=== PATIENT | male | born 1940 | race Caucasian/White ===

== ENCOUNTER 2016-07-22 06:30 | Outpatient (CLI) | payer MEDICARE ==
[~2016-07-22] VITALS: Ht 180.3 cm; Wt 81.8 kg
--- NOTE | ~2016-07-22 | HEMODYNAMI ---
PATIENT:KAREN AYALA MEDICAL RECORD: [id number] : 38 LOCATION:D.CAT ADMISSION DATE: 07/22/16 Generatedon:07/22/20169:58 Patient name: KAREN AYALA Patient #: [id number] SSN: [id number] : 1940 Date of study: 07/22/2016 Page: Of Hemodynamic Procedure Report Patient Data Patient Demographics Procedure consent was obtained First Name: KAREN Gender: Male Last Name: LUCY : 1940 Middle Initial: E Age: 76 year(s) Patient #: [id number] Race: SSN: [id number] Additional ID: [id number] Contact details Address: [place] [address] State: [place] City: [place] Zip code: [address] Past Medical History Allergies: No known allergies Admission Admission Data Admission Date: 07/22/2016 Admission Time: 6:30 Arrival Date: 07/22/2016 Arrival Time: 6:30 Admit Source: Other Insurance Payor: Medicare Height (in.): 71 BSA: 2.04 (m2) Height (cm.): 180.34 BMI: 25.8 (kg/m2) Weight (lbs.): 185 Weight (kg.): 83.91 Lab Results Lab Result Date: 07/22/2016 Lab Result Time: 0:00 Biochemistry Name Units Result Min Max BUN mg/dl 21 --(----)-* 7 18 Creatinine mg/dl 1.4 --(----)*- 0.6 1.3 CBC Name Units Result Min Max Hemoglobin g/dl 13.6 --(*---)-- 13.5 17.5 Procedure Procedure Types Cath Procedure Diagnostic Procedure [facility] w/Coronaries FFR/IVUS Intra-Coronary IVUS Initial PCI Procedure Coronary Stent Initial Procedure Description Procedure Date Procedure Date: 07/22/2016 Procedure Start Time: 9:37 Procedure End Time: 9:51 Procedure Staff Name Function Rodrigo Carreon MD Performing Physician Brigid Bonds RT Scrub Lisseth Way RN Nurse Kyrie Gamboa RT Health Insurance Assessor Pretty Calles RT Monitor Indication Angina Procedure Data Cath Procedure Fluoroscopy Diagnostic fluoroscopy Total fluoroscopy Time: 3.4 time: 3.4 min min Diagnostic fluoroscopy Total fluoroscopy dose: 602 dose: 602 mGy mGy Contrast Material Contrast Material Type Amount (ml) Isovue 370 71 Entry Location Entry Primary Successful Side Size Upsize Upsize Entry Closure Succes sful Closure Location (Fr) 1 (Fr) 2 (Fr) Remarks Device Remarks Femoral Right 5 Fr 6 Fr Vascade artery Short Closure System Estimated blood loss: 5 ml Diagnostic catheters Device Type Used For End Catheter Placement Cordis Infinity 5Fr JL Left Coronary 3.5 catheter Angiography Procedure Complications No complications Procedure Medications Medication Administration Route Dosage Oxygen NC 2 l/min Heparin Flush Bag added to field 2 bags (1000units/500ml NS) Lidocaine 2% added to field 20 Benadryl I.V. 50 mg Versed I.V. 1 mg Fentanyl I.V. 50 mcg unlisted medication Versed I.V. 1 mg Fentanyl I.V. 50 mcg Heparin Bolus I.V. 4000 units Hemodynamics Rest BSA: 2.04 (m2) HGB: 13.6 (g/dl) O2 Consumption: Estimated: 233.42 (ml/min) O2 Co nsumption indexed: Estimated:114.42 (ml/min/m) Heart Rate: 69 (bpm) Pressure Samples Time Site Value (mmHg) Purpose Heart Use Rate(bpm) 9:38 LV 30/-18,-11 Snapshot 60 Snapshots Pre Cath Intra NCS Post Cath Vital Signs Time Heart Resp SPO2 NIBP (mmHg) Rhythm Pain Sedation Rate (ipm) (%) Status Level (bpm) 9:24:36 69 15 97 153/72(119) NSR 0 (11) 10(A) , No pain 9:28:56 68 14 94 145/69(122) NSR 0 (11) 10(A) , No pain 9:33:14 64 15 95 135/74(111) NSR 0 (11) 10(A) , No pain 9:37:31 58 14 95 135/71(114) NSR 0 (11) 9(A) , No pain 9:41:47 62 16 95 136/68(115) NSR 0 (11) 9(A) , No pain 9:46:05 60 16 95 128/68(107) NSR 0 (11) 9(A) , No pain 9:50:19 60 15 97 143/65(112) NSR 0 (11) 9(A) , No pain Medications Time Medication Route Dose Verified Delivered Reason Notes Effectiveness by by 9:32:42 Oxygen NC 2 Rodrigo Lisseth Per physician l/min Velma Way RN 9:32:50 Heparin Flush added 2 Rodrigo Rodrigo used for Bag to bags Velma Carreon MD procedure (1000units/500ml field NS) 9:32:56 Lidocaine 2% added 20ml Rodrigo Rodrigo used for to vial Velma Carreon MD procedure field 9:33:02 Benadryl I.V. 50 mg Rodrigo Lisseth Per physician Velma Way RN 9:33:07 Versed I.V. 1 mg Rodrigo Lisseth for sedation Velma Way RN 9:33:12 Fentanyl I.V. 50 Rodrigo Lisseth for sedation mcg Velma Way RN 9:35:12 Hernandez catheter Rodrigo Lisseth urinary per instered Velma Way RN retention physician order 9:37:10 Versed I.V. 1 mg Rodrigo Lisseth for sedation Velma Way RN 9:37:12 Fentanyl I.V. 50 Rodrigo Lisseth for sedation mcg Velma Way RN 9:44:24 Heparin Bolus I.V. 4000 Rodrigo Lisseth for dose units Velma Way RN anticoagulation verified wt dr carreon Procedure Log Time Note 9:00:33 Kyrie Gamboa RT(R) sent for patient. Start room use. 9:02:29 Informed consent obtained and on chart 9:02:34 Diagnostic Cath Status : Elective 9:02:58 Indication : Angina 9:03:06 Admit Source: Other 9:03:09 Arrival Date: 07/22/2016 6:30:00 AM 9:06:38 Insurance Payor : Medicare 9:06:55 Patient Height : 180.34 inches 9:06:56 Patient Weight : 83.91 lbs 9:11:18 Lab Result : BUN 21 mg/dl 9:11:18 Lab Result : Creatinine 1.4 mg/dl 9:11:18 Lab Result : Hemoglobin 13.6 g/dl 9:15:39 Time tracking: Regular hours 9:15:46 Plan of Care:Hemodynamics will remain stable., Cardiac rhythm will remain stable., Comfort level will be maintained., Respiratory function will remain adequate., Patient/ family verbilizes understanding of procedure., Procedure tolerated without complication., Recovers from procedure without complications.. 9:15:55 Patient received from Outpatients to [facility] 1 Alert and oriented. Tansferred to table in Supine position. 9:15:56 Warm blankets applied, and michelle hugger turned on for patient comfort. 9:15:56 Correct patient and procedure confirmed by team. 9:15:57 ECG and BP/O2 sat monitors applied to patient. 9:20:28 Vital chart was started 9:20:39 Baseline sample Acquired. 9:20:45 Rhythm: sinus rhythm 9:20:47 Full Disclosure recording started 9:21:12 H&P Date Dictated: 07/21/2016 Within 30 days and on chart., H&P Addendum completed by physician on day of procedure. (MUST COMPLETE FOR ALL OUTPATIENTS). 9:21:14 Pre-procedure instructions explained to patient. 9:21:18 Pre-op teaching completed and patient verbalized understanding. 9:21:20 Family in waiting room. 9:21:23 Patient NPO since Midnight. 9:21:35 Patient allergic to No known allergies 9:21:38 Is the patient allergic to Iodine/contrast media? No. 9:21:40 Is patient on blood thinner?Yes 9:21:44 ACC The patient was administered the following blood thiners within the last 24 hours: ACCPlavix 9:21:55 Patient diabetic? No. 9:22:00 Snore? Yes 9:22:01 Sleep apnea? No 9:22:06 Deviated septum? No 9:22:07 Opens mouth fully? Yes 9:22:09 Sticks out tongue? Yes 9:22:17 Dentures? No ? 9:22:29 IV patent on arrival in left forearm with 0.9% NaCl at [facility]. 9:22:31 Lab results completed and on chart. 9:22:35 Right groin area was prepped with chlora-prep and draped in sterile fashion 9:22:44 Alarms reviewed by R. N. 9:22:45 Sharps counted by scrub and verified by R.N. 9:22:50 Use device set Femoral Dx 9::52 Acist Syringe opened to sterile field. 9::52 Bag Decanter opened to sterile field. 9::53 Cardinal Cath Pack opened to sterile field. 9::53 Terumo 5Fr [place] Sheath opened to sterile field. 9:22:55 St Zane 260cm J .035 wire opened to sterile field. 9:22:57 Acist Hand Control opened to sterile field. 9:22:57 Acist Manifold opened to sterile field. 9:22:58 Cordis Infinity 5Fr Multipack catheter opened to sterile field. 9:23:00 Tegaderm 4 x 4 opened to sterile field. 9:31:11 Physician arrived 9:31:11 --------ALL STOP TIME OUT------ 9:31:11 Final Timeout: patient, procedure, and site verified with staff and physician. All members of the team are in agreement. 9:31:13 Right groin site verified by team. 9:31:16 Physical assessment completed. ASA score P 2 - A patient with mild systemic disease as per Rodrigo Carreon MD. 9:31:19 Sedation plan: IV Moderate Sedation Versed, Fentanyl 9:32:42 Oxygen 2 l/min NC was given by Lisseth Way RN; Per physician; 9:32:50 Heparin Flush Bag (1000units/500ml NS) 2 bags added to field was given by Rodrigo Carreon MD; used for procedure; 9:32:56 Lidocaine 2% 20ml vial added to field was given by Rodrigo Carreon MD; used for procedure; 9:33:02 Benadryl 50 mg I.V. was given by Lisseth Way RN; Per physician; 9:33:07 Versed 1 mg I.V. was given by Lisseth Way RN; for sedation; 9:33:12 Fentanyl 50 mcg I.V. was given by Lisseth Way RN; for sedation; 9:35:12 Hernandez catheter instered was given by Lisseth Way RN; urinary retention; per physician order 9:36:11 Procedure started. 9:37:10 Versed 1 mg I.V. was given by Lisseth Way RN; for sedation; 9:37:12 Fentanyl 50 mcg I.V. was given by Lisseth Way RN; for sedation; 9:37:45 Local anesthetic to right femoral artery with Lidocaine 2% by Rodrigo Carreon MD.INITIAL ACCESS ONLY 9:38:07 A 5 Fr sheath was inserted into the Right Femoral artery 9:39:11 5 Fr pigtail guide catheter was inserted over the wire 9:39:28 LV hemodynamics recorded. 9:39:30 LV gram done using ZAMBRANO 9:39:32 Injector settings: Ml/sec: 5, Volume: 15, 9:39:39 EF : 60 % 9:39:44 Catheter removed. 9:39:51 5 Fr jl 4 guide catheter was inserted over the wire 9:39:58 LCA angiography performed. 9:40:01 Injector settings: Ml/sec: 3, Volume: 6, 9:40:35 Catheter removed. 9:40:46 5 Fr 3drc guide catheter was inserted over the wire 9:41:26 RCA angiography performed. 9:41:30 Injector settings: Ml/sec: 3, Volume: 6, 9:41:50 Catheter removed. 9:42:04 A Cordis Infinity 5Fr JL 3.5 catheter was advanced over the wire and used for Left Coronary Angiography. 9:42:08 LCA angiography performed. 9:42:11 Injector settings: Ml/sec: 3, Volume: 6, 9:42:20 Terumo 6Fr Qu[place] Sheath opened to sterile field. 9:42:21 Merit BasixCompak Inflation Kit opened to sterile field. 9:42:22 Mosqueda Whisper J 300cm 0.014 guide wire opened to sterile field. 9:42:32 Cordis 6FR XBLAD 3.5 guide catheter opened to sterile field. 9:42:33 Pearlington [place] Eagleye IVUS Catheter opened to sterile field. 9:42:36 Proceeding to intervention. 9:42:44 Sheath upsized to a 6 Fr Short. 9:42:51 6 Fr xblad 3.5 guide catheter was inserted over the wire 9:42:57 whisper wire advanced. 9:43:51 Wire advanced across lesion. 9:44:21 IVUS catheter advanced over wire. 9:44:24 Heparin Bolus 4000 units I.V. was given by Lisseth Way RN; for anticoagulation; dose verified wt dr carreon 9:45:06 IVUS pass to Circ lesion performed. 9:47:05 IVUS catheter removed over wire. 9:47:57 Inflation Number: 1 A Medtronic Resolute 3.5 X 15 stent was prepped and advanced across the Prox CX. The stent was deployed at 15 GRACE for 0:10 (min:sec). 9:48:22 Stent catheter was removed intact over wire. 9:48:22 Wire removed. 9:48:23 Guide catheter removed. 9:48:31 Vascade 6/7 Fr Closure Device opened to sterile field. 9:48:46 Sheath removed intact; hemostasis achieved with Vascade Closure System to the Right Femoral artery. 9:48:48 Procedure ended.(Physican Out) 9:49:32 Fluoroscopy time 03.40 minutes. 9:49:36 Fluoroscopy dose: 602 mGy 9:49:36 Flurop Dose total: 602 9:49:40 Contrast amount:Isovue 370 71ml. 9:50:21 Sharps counted by scrub and verified by R.N. 9:50:23 Insertion/operative site no bleeding no hematoma. 9:50:25 Post-op/insertion site Right Femoral artery dressed using a 4 x 4 and Tegaderm. 9:50:28 Post right femoral artery:stable 9:50:29 Post Procedure Pulses reassessed and unchanged 9:50:32 Post procedure rhythm: unchanged. 9:50:35 Estimated blood loss: 5 ml 9:50:36 Post procedure instruction explained to patient.Patient verbalizes understanding. 9:50:37 Patient needs reinforcement of post procedure teaching. 9:50:57 Procedure type changed to Cath procedure, Diagnostic procedure, LHC, LHC w/Coronaries, FFR/IVUS, Intra-Coronary IVUS Initial, PCI procedure, Coronary Stent Initial 9:50:58 Procedure and supply charges have been captured, reviewed, submitted and are correct. 9:51:02 Procedure Complication : No complications 9:51:04 Vital chart was stopped 9:51:05 See physician's report for complete and final results. 9:51:09 Report given to Post Procedure Room. 9:51:11 Patient transfered to Post Procedure Room with Stretcher. 9:51:14 Procedure ended. 9:51:14 Full Disclosure recording stopped 9:51:23 ACC-PCI Only Patient was given prescriptions, or instructed by Rodrigo Carreon MD to start/continue the following medications upon discharge: Plavix 9:51:24 End room use (Document Last) 9:57:35 16FR Hernandez w/Drainage Bag opened to sterile field. Intervention Summary Intervention Notes Time ActionType Lesion and Equipment Action# Pressure Duration Attributes Used 9:47:57 Place stent Prox CX Medtronic 1 15 00:10 Resolute 3.5 X 15 stent Device Usage Item Name Manufacture Quantity Catalog Hospital Part Current Minima l Lot# / Number Charge Number Stock Stock Serial# Code Acist Acist 1 17015 332687 997512 569979 20 Syringe Medical Systems Inc Bag Microtek 1 2002S 210723 86070 091018 5 Decanter Medical Inc. Cardinal Cardinal 1 [id number] 090099 74042 680130 5 Cath Pack Health Terumo 5Fr Terumo 1 [id number] 647876 723681 698907 [address] St Zane 1 923158 539756 193054 846707 30 260cm J .035 wire Acist Hand Acist 1 13309 974601 569490 666866 5 Control Medical Systems Inc Acist Acist 1 62464 099173 575214 442351 5 Manifold Medical Systems Inc Cordis Cardinal 1 [id number] 815967 27240 665825 30 Infinity Health 5Fr Multipack catheter Tegaderm 4 3M 1 1626W 120536 690265 707240 5 x 4 Cordis Cardinal 1 [id number] 081936 370975 583530 5 Infinity Health 5Fr JL 3.5 catheter Terumo 6Fr Terumo 1 PSA922 790216 812157 487749 40 Quenemo Sheath Merit Merit 1 [id number] 550918 613182 438044 15 BasixCommdk Medical Inflation Kit Mosqueda Mosqueda 1 [id number] 874944 691401 490527 5 Whisper J Vascular 300cm 0.014 guide wire Cordis 6FR Cardinal 1 [id number] 087123 870578 662955 10 XBLAD 3.5 Health guide catheter Pearlington Pearlington 1 [id number] 068054 763044 211584 8 [place] Eagleye IVUS Catheter Medtronic Medtronic 1 [id number] 900072 453153 5 [id number] Resolute 3.5 X 15 stent Vascade 11/26 Cardiva 1 [id number] 301766 305722 285146 5 Fr Closure Medical, Device Inc. 16FR Hernandez Bard 1 [id number] 347042 666292 007612 5 w/Drainage Bag Signature Audit Randall Stage Time Signature Unsigned Intra-Procedure 07/22/2016 Pretty Calles 9:58:15 AM RT(R) Signatures Monitor : Pretty Calles RT Signature : Date : Time : [address] [place] [address]
[~2016-07-22 06:30] MED LIST: ASCORBIC ACID500 MG PO; BAYER ASPIRIN325 MG PO; BAYER CHEWABLE81 MG PO; CINNAMON500 MG PO; FISH OIL 500 MG1 CAP PO; FLAXSEED OIL1000 MG PO; GALZIN50 MG PO; LOTREL 5/10 MG1 CAP PO; MAGNESIUM OXID250 MG PO; MULTIPLE VITAMI1 TA1 PO; PLAVIX75 MG PO; PRAVACHOL40 MG PO; PRILOSEC20 MG PO; PROSCAR5 MG PO; RANEXA500 MG PO; SAW PALMETTO450 MG PO; TENORETIC 50 TA1 TAB PO; VIAGRA100 MG PO; VITAMIN B-122500 MCG PO; VITAMIN E400 UNI2 PO
[2016-07-22 07:33] LABS: BASOPHILS 0.6 % (0.0-2.0); EOSINOPHILS 4.5 % (0-7); HEMATOCRIT 40.2 % (42.0-54.0); HEMOGLOBIN 13.6 g/dL (13.5-17.5); IMMATURE GRANULOCYTES 0.2 % (0-5); LYMPHOCYTES 21.8 % (15-50); MCH 30.4 pg (26.0-34.0); MCHC 33.8 g/dL (31.0-37.0); MCV 89.7 fL (80.0-100.0); MEAN PLATELET VOLUME 9.2 fL (7.4-10.4); NEUTROPHILS 61.9 % (40-80); PLATELET COUNT 236 10x3/uL (130-400); RBC 4.48 10x6/uL (4.20-6.10); WBC 6.2 10x3/uL (4.8-10.8)
[2016-07-22 07:44] LABS: ANION GAP 11.1 mmol/L (8-16); CARBON DIOXIDE 27.5 mmol/L (21.0-32.0); CREATININE - SERUM 1.4 mg/dL (0.6-1.3); POTASSIUM - SERUM 3.6 mmol/L (3.5-5.1)
[2016-07-22] MEDS ORDERED: NIFEDIPINE ER60 MG PO (08:00)
[2016-07-22 08:09] VITALS: BP 146/69; Ht 180.3 cm; Wt 81.8 kg
--- NOTE | 2016-07-22 10:16 | NUR ---
RESTING IN BED SPEAKING WITH FAMILY AT BEDSIDE. INSTRUCTED PT TO KEEP RIGHT LEG STRAIGHT AND HEAD FLAT ON PILLOW. RIGHT GROIN SITE CDI, NO HEMATOMA NOTED. NO C/O CHEST PAIN OR NAUSEA. VSS, WILL CONTINUE TO MONITOR.
--- NOTE | 2016-07-22 10:46 | NUR ---
RESTING QUIETLY, VSS. NO C/O CHEST PAIN OR NAUSEA. RIGHT GROIN CDI, NO HEMATOMA NOTED. WILL CONTINUE TO MONITOR.
--- NOTE | 2016-07-22 11:00 | NUR ---
SANDWICH TRAY GIVEN. NO C/O NAUSEA AT THIS TIME. AT BEDSIDE. WILL CONTINUE TO MONITOR.
--- NOTE | 2016-07-22 11:30 | NUR ---
AT BEDSIDE, RESTING QUIETLY. VSS. NO C/O AT THIS TIME. RIGHT GROIN CDI.
--- NOTE | 2016-07-22 12:00 | NUR ---
RESTING QUIETLY WITH EYES CLOSED. NO C/O AT THIS TIME. RIGHT GROIN CDI. VSS.
--- NOTE | 2016-07-22 13:00 | NUR ---
1300 CHEST PAIN DENIED WITH VSS 6 FR VASCADE R/GROIN CDI NO BLEEDING NO HEMATOMA NOTED. INSTRUCTED PATIENT TO KEEP HEAD FLAT ON PILLOW WITH RLE STRAIGHT
--- NOTE | 2016-07-22 13:48 | NUR ---
PIV REMOVED FROM LEFT ARM WITH DRESSING APPLIED. CHEST PAIN IS DENIED WITH VSS. 6 FR VASCADE R/GROIN CDI. RODRIGUEZ CATH REMOVED ORDERED. PATIENT UP TO GET DRESSED FOR DISCHARGE HOME
--- NOTE | 2016-07-22 14:03 | NUR ---
D/C INSTRUCTIONS DISCUSSED WITH PATIENT AND AT BEDSIDE. WILL BE RETURNING ON THURSDAY FOR PCI W DR. BOOKER. WHEELED DOWN VIA WHEELCHAIR BY CATH TEAM.
--- NOTE | 2016-07-25 11:12 | OP ---
PATIENT NAME: KAREN AYALA MEDICAL RECORD: [id number] :38 LOCATION:D.CAT ADMISSION DATE: SURGEON: MADELINE BOOKER MD DATE OF OPERATION: 07/22/2016 PROCEDURES: 1. PTCA, stent left circumflex. 2. Intravascular ultrasound of the left circumflex. 3. Left heart catheterization. 4. Selective coronary angiography. 5. Left ventriculogram. INDICATION: Angina and coronary artery disease. PROCEDURE IN DETAIL: After informed consent was obtained and after detailed explanation of risks, benefits, as well as alternative therapies, the patient elected to proceed with angiogram and angioplasty. The right femoral area was prepped and draped in normal sterile fashion. The right femoral artery was cannulated via modified Seldinger technique with placement of 6-Gu[place]alan sheath. All catheters exchanged through this sheath. FINDINGS: The left ventriculogram was performed in standard 30-degree ZAMBRANO view, reveals good cardiac wall motion throughout all segments. Overall ejection fraction is 60%. SELECTIVE CORONARY ANGIOGRAPHY: 1. Left main showed no significant angiographic disease. 2. The left anterior descending has previously placed stents; these are widely patent with no significant restenosis. No disease of significant elsewise throughout the LAD or its branches. 3. The left circumflex has previously placed stents, these are widely patent. However, there is a new 75% stenosis confirmed by intravascular ultrasound in the mid vessel. 4. The right coronary has previously placed stents. There is 70% to 80% in-stent restenosis proximally. PTCA STENT OF THE LEFT CIRCUMFLEX: The stent used is a 3.5 x 15 mm Resolute. Result was 0% residual stenosis. OVERALL IMPRESSION: Successful percutaneous transluminal coronary angioplasty stent of the left circumflex going from 75% initial stenosis to 0% residual. PLAN: PTCA stent of the RCA in the near future. TRANSINT:[id number] Voice Confirmation ID: [id number] DOCUMENT ID: [id number] MADELINE BOOKER MD at 1112 CC: [id number] DICTATION DATE: 07/22/16 0952 [place] ROUT[place]AN: 07/22/16 1018 DEP CLI 07/22/16 [facility] [address] [place], [place] [id number]
== END 2016-07-22 14:05 | disposition home or self-care (01) ==
LOC: D.CATH 06:30
PROVIDERS: Internal Medicine Interventional Cardiology
DX: I25.119 Atherosclerotic heart disease of native coronary artery with unspecified angina pectoris (principal); I10 Essential (primary) hypertension; E78.5 Hyperlipidemia, unspecified
CPT/HCPCS: 93458; 92978; C9600

== ENCOUNTER 2016-07-25 08:48 | Outpatient (CLI) | payer MEDICARE ==
[~2016-07-25] VITALS: Ht 180.3 cm; Wt 81.8 kg
--- NOTE | ~2016-07-25 | HEMODYNAMI ---
PATIENT:KAREN AYALA MEDICAL RECORD: [id number] : 38 LOCATION:[facility] ADMISSION DATE: 07/25/16 Generatedon:07/25/201612:56 Patient name: KAREN AYALA Patient #: [id number] SSN: [id number] : 1940 Date of study: 07/25/2016 Page: Of Hemodynamic Procedure Report Patient Data Patient Demographics Procedure consent was obtained First Name: KAREN Gender: Male Last Name: LUCY : 1940 [facility] Initial: E Age: 76 year(s) Patient #: [id number] Race: SSN: [id number] Additional ID: [id number] Contact details Address: [place] [address] State: [place] City: [place] Zip code: [address] Past Medical History Allergies: No known allergies Admission Admission Data Admission Date: 07/25/2016 Admission Time: 8:48 Admit Source: Other Insurance Payor: Medicare Height (in.): 71 BSA: 2.02 (m2) Height (cm.): 180.34 BMI: 25.1 (kg/m2) Weight (lbs.): 180 Weight (kg.): 81.65 Lab Results Lab Result Date: 07/25/2016 Lab Result Time: 0:00 Biochemistry Name Units Result Min Max Creatinine mg/dl 1.1 --(--*-)-- 0.6 1.3 CBC Name Units Result Min Max Hemoglobin g/dl 14.6 --(-*--)-- 13.5 17.5 Procedure Procedure Types Cath Procedure PCI Procedure Coronary Stent Initial Procedure Description Procedure Date Procedure Date: 07/25/2016 Procedure Start Time: 12:43 Procedure End Time: 12:52 Procedure Staff Name Function Rodrigo Carreon MD Performing Physician Rafael Chance RT Scrub Romain Zhang RN Nurse August Stone RT Sql Data Architect Balbina Dias RT Monitor Additional PCI Information PCI indication: Staged PCI Procedure Data Cath Procedure Fluoroscopy Diagnostic fluoroscopy Total fluoroscopy Time: 1.5 time: 1.5 min min Diagnostic fluoroscopy Total fluoroscopy dose: 159 dose: 159 mGy mGy Contrast Material Contrast Material Type Amount (ml) Isovue 300 33 Entry Location Entry Primary Successful Side Size Upsize Upsize Entry Closure Succes sful Closure Location (Fr) 1 (Fr) 2 (Fr) Remarks Device Remarks Femoral Left 6 Fr Vascade artery Short Closure System Estimated blood loss: 10 ml Procedure Complications No complications Procedure Medications Medication Administration Route Dosage Oxygen NC 2 l/min Benadryl I.V. 50 mg Lidocaine 2% added to field 20 Heparin Flush Bag added to field 2 bags (1000units/500ml NS) 0.9% NaCl I.V. 100 ml/hr Versed I.V. 1 mg Fentanyl I.V. 50 mcg Heparin Bolus I.V. 4000 units Versed I.V. 1 mg Fentanyl I.V. 50 mcg Versed I.V. 0.5 mg Hemodynamics Rest BSA: 2.02 (m2) HGB: 14.6 (g/dl) O2 Consumption: Estimated: 226.54 (ml/min) O2 Co nsumption indexed: Estimated:112.15 (ml/min/m) Heart Rate: 63 (bpm) Snapshots Pre Cath Intra NCS Post Cath Vital Signs Time Heart Resp SPO2 etCO2 [id number] NIBP (mmHg) Rhythm Pain Sedation Rate (ipm) (%) (mmHg) (mmHg) Status Level (bpm) 12:08:45 64 14 99 0 0 151/79(124) NSR 0 (11) 10(A) , No pain 12:13:52 66 16 99 0 0 164/80(130) NSR 0 (11) 10(A) , No pain 12:18:18 60 16 98 0 0 139/73(111) NSR 0 (11) 10(A) , No pain 12:22:36 58 16 96 0 0 148/67(126) NSR 0 (11) 10(A) , No pain 12:27:01 57 17 99 0 0 153/62(128) NSR 0 (11) 10(A) , No pain 12:31:19 61 15 97 0 0 142/72(118) NSR 0 (11) 10(A) , No pain 12:35:39 58 16 98 0 0 126/66(99) NSR 0 (11) 10(A) , No pain 12:39:53 57 17 97 0 0 137/65(100) NSR 0 (11) 10(A) , No pain 12:44:13 58 16 96 0 0 140/60(110) NSR 0 (11) 9(A) , No pain 12:48:33 61 18 94 0 0 125/68(102) NSR 0 (11) 9(A) , No pain 12:53:32 63 17 98 0 0 Measuring NSR 0 (11) 10(A) , No pain 12:53:48 59 17 98 0 0 150/50(111) NSR 0 (11) 10(A) , No pain Medications Time Medication Route Dose Verified Delivered Reason Notes Ef fectiveness by by 12:10:33 Oxygen NC 2 Rodrigo Buffie used for l/min Velma Zhang RN procedure 12:11:11 Benadryl I.V. 50 mg Rodrigo Buffie used for Velma Zhang RN procedure 12:17:47 Lidocaine 2% added 20ml Rodrigo Rodrigo for local to vial Velma Carreon MD anesthetic field 12:17:53 Heparin Flush added 2 Rodrigo Rodrigo used for Bag to bags Velma Carreon MD procedure (1000units/500ml field NS) 12:18:02 0.9% NaCl I.V. 100 Rodrigo Buffie Per ml/hr Velma Zhang RN physician 12:42:23 Versed I.V. 1 mg Rodrigo Buffie for Velma Zhang RN sedation 12:42:29 Fentanyl I.V. 50 Rodrigo Buffie for mcg Velma Zhang RN sedation 12:44:25 Heparin Bolus I.V. 4000 Rodrigo Buffie VERIFIED units Velma Zhang RN WITH DR CARREON 12:45:14 Versed I.V. 1 mg Rodrigo Buffie for Velma Zhang RN sedation 12:45:18 Fentanyl I.V. 50 Rodrigo Buffie for mcg Velma Zhang RN sedation 12:48:26 Versed I.V. 0.5 Rodrigo Buffie for mg Velma Zhang RN sedation Procedure Log Time Note 11:53:46 Informed consent obtained and on chart 11:54:12 Admit Source: Other 11:54:15 August GAMBLE(R) sent for patient. Start room use. 11:54:17 Time tracking: Regular hours 11:54:21 Plan of Care:Hemodynamics will remain stable., Cardiac rhythm will remain stable., Comfort level will be maintained., Respiratory function will remain adequate., Patient/ family verbilizes understanding of procedure., Procedure tolerated without complication., Recovers from procedure without complications.. 12:02:44 Patient received from Outpatients to [facility] 2 Alert and oriented. Tansferred to table in Supine position. 12:02:46 Warm blankets applied, and michelle hugger turned on for patient comfort. 12:02:46 Correct patient and procedure confirmed by team. 12:02:48 Full Disclosure recording started 12:07:02 ECG and BP/O2 sat monitors applied to patient. 12:07:28 Vital chart was started 12:07:29 Baseline sample Acquired. 12:07:33 Rhythm: sinus rhythm 12:10:33 Oxygen 2 l/min NC was given by Romain Zhang RN; used for procedure; 12:11:11 Benadryl 50 mg I.V. was given by Romain Zhang RN; used for procedure; 12:15:58 H&P Date Dictated: 07/21/2016 Within 30 days and on chart., H&P Addendum completed by physician on day of procedure. (MUST COMPLETE FOR ALL OUTPATIENTS). 12:16:00 Pre-procedure instructions explained to patient. 12:16:00 Pre-op teaching completed and patient verbalized understanding. 12:16:01 Family in waiting room. 12:16:03 Patient NPO since Midnight. 12:16:13 Patient allergic to No known allergies 12:16:15 Is the patient allergic to Iodine/contrast media? No. 12:16:16 Is patient on blood thinner?Yes 12:16:18 ACC The patient was administered the following blood thiners within the last 24 hours: ACCPlavix 12:16:32 Patient diabetic? No. 12:16:37 Previous problem with sedation/anesthesia? No ? 12:16:38 Snore? Yes 12:16:39 Sleep apnea? No 12:16:40 Deviated septum? No 12:16:41 Opens mouth fully? Yes 12:16:42 Sticks out tongue? Yes 12:16:44 Airway obstruction? No ? 12:16:48 Dentures? Yes Partial In 12:16:52 Pre procedure: left dorsailis pedis pulse 2+ Normal; easily identifiable; not easily obliterated 12:16:55 Patient pain scale 0/10 ?. 12:17:00 IV patent on arrival in left hand with 0.9% NaCl at [facility]. 12:17:33 Lab Result : Creatinine 1.1 mg/dl 12:17:33 Lab Result : Hemoglobin 14.6 g/dl 12:17:45 Lab results completed and on chart. 12:17:47 Lidocaine 2% 20ml vial added to field was given by Rodrigo Carreon MD; for local anesthetic; 12:17:53 Heparin Flush Bag (1000units/500ml NS) 2 bags added to field was given by Rodrigo Carreon MD; used for procedure; 12:17:53 Left groin area was prepped with chlora-prep and draped in sterile fashion 12:17:54 Alarms reviewed by R. N. 12:17:54 Sharps counted by scrub and verified by R.N. 12:18:02 0.9% NaCl 100 ml/hr I.V. was given by Romain Zhang RN; Per physician; 12:18:58 Physician paged 12:19:15 Use device set Femoral PCI 12:19:16 Acist Syringe opened to sterile field. 12:19:17 Acist Hand Control opened to sterile field. 12:19:18 Bag Decanter opened to sterile field. 12:19:18 Cardinal Cath Pack opened to sterile field. 12:19:19 Terumo 6Fr Franklin Sheath opened to sterile field. 12:19:19 St Zane 260cm J .035 wire opened to sterile field. 12:19:20 Merit BasixCompak Inflation Kit opened to sterile field. 12:19:23 Acist Manifold opened to sterile field. 12:19:27 Tegaderm 4 x 4 opened to sterile field. 12:19:38 Medtronic Launcher 6Fr AR 2.0 guide catheter opened to sterile field. 12:19:38 Mosqueda Whisper J 300cm 0.014 guide wire opened to sterile field. 12:23:23 Zero performed for pressure channel P1 12:26:09 Insurance Payor : Medicare 12:26:19 Patient Height : 71 inches 12:26:23 Patient Weight : 180 lbs 12::38 PCI Cath Status : Elective 12:26:44 PCI Indication : Staged PCI 12:41:51 Final Timeout: patient, procedure, and site verified with staff and physician. All members of the team are in agreement. 12::55 Left groin site verified by team. 12:41:59 Physical assessment completed. ASA score P 2 - A patient with mild systemic disease as per Rodrigo Carreon MD. 12:42:02 Sedation plan: IV Moderate Sedation Versed, Fentanyl 12:42:23 Versed 1 mg I.V. was given by Romain Zhang RN; for sedation; 12:42:29 Fentanyl 50 mcg I.V. was given by Romain Zhang RN; for sedation; 12:43:16 Procedure started. 12:43:22 Local anesthetic to left femerol artery with Lidocaine 2% by Rodrigo Carreon MD.INITIAL ACCESS ONLY 12:44:06 A 6 Fr Short sheath was inserted into the Left Femoral artery 12:44:25 Heparin Bolus 4000 units I.V. was given by Romain Zhang RN; ; VERIFIED WITH DR CARREON 12:44:30 6 Fr AR 2.0 guide catheter was inserted over the wire 12:45:14 Versed 1 mg I.V. was given by Romain Zhang RN; for sedation; 12:45:18 Fentanyl 50 mcg I.V. was given by Romain Zhang RN; for sedation; 12:45:56 Whisper wire advanced. 12:47:00 Inflation Number: 1 A Medtronic Resolute 3.5 X 15 stent was prepped and advanced across the Mid RCA. The stent was deployed at 21 GRACE for 0:10 (min:sec). 12:47:28 Inflation number: 2 The stent balloon was then re-inflated across the Mid RCA to 21 GRACE for 0:05 (min:sec). 12:47:54 Stent catheter was removed intact over wire. 12:47:55 Wire removed. 12:47:55 Guide catheter removed. 12:48:12 Sheath removed intact; hemostasis achieved with Vascade Closure System to the Left Femoral artery. 12:48:17 Procedure ended.(Physican Out) 12:48:26 Versed 0.5 mg I.V. was given by Romain Zhang RN; for sedation; 12:48:34 Vascade 6/7 Fr Closure Device opened to sterile field. 12:48:40 Fluoroscopy time 01.50 minutes. 12:48:43 Fluoroscopy dose: 159 mGy 12:48:43 Flurop Dose total: 159 12:48:48 Contrast amount:Isovue 300 33ml. 12:48:49 Sharps counted by scrub and verified by R.N. 12:48:52 Insertion/operative site no bleeding no hematoma. 12:48:56 Post-op/insertion site Left Femoral artery dressed using a 4 x 4 and Tegaderm. 12:49:00 Post left femerol artery:stable, clean and dry 12:49:03 Post Procedure Pulses reassessed and unchanged 12:49:14 Post-procedure physical assessment completed. ASA score P 2 - A patient with mild systemic disease as per Rodrigo Carreon MD. 12:49:16 Post procedure rhythm: sinus rhythm 12:49:19 Estimated blood loss: 10 ml 12:49:20 Post procedure instruction explained to patient.Patient verbalizes understanding. 12:49:21 Patient needs reinforcement of post procedure teaching. 12:52:14 Procedure and supply charges have been captured, reviewed, submitted and are correct. 12:52:18 Procedure Complication : No complications 12:52:20 See physician's report for complete and final results. 12:52:28 Report given to Outpatients. 12:52:32 Patient transfered to Outpatients with Stretcher. 12:52:35 Procedure ended. 12:52:35 Full Disclosure recording stopped 12:53:20 End room use (Document Last) 12:56:13 Vital chart was stopped Intervention Summary Intervention Notes Time ActionType Lesion and Equipment Action# Pressure Duration Attributes Used 12:47:00 Place stent Mid RCA Medtronic 1 21 00:10 Resolute 3.5 X 15 stent 12:47:28 Reinflate Mid RCA Medtronic 2 21 00:05 stent Resolute balloon 3.5 X 15 stent Device Usage Item Name Manufacture Quantity Catalog Hospital Part Current Minima l Lot# / Number Charge Number Stock Stock Serial# Code Acist Acist 1 02853 220626 065802 [id number] 20 Syringe Medical Systems Inc Acist Hand Acist 1 11163 931401 201836 728782 5 Control Medical Systems Inc Bag Microtek 1 2002S 169569 54011 646165 5 [employer]. Cardinal Cardinal [address] 232557 25731 771893 5 ClickFacts 6Fr Terumo 1 [id number] 392493 146192 944252 [address] St Zane 1 631856 784477 135510 552380 30 260cm J .035 wire Merit Merit 1 [id number] 236010 248769 753664 15 [employer] Medical Inflation Kit Acist Acist 1 90184 570279 932982 912835 5 MeilleurMobile Systems Inc Tegaderm 4 3M 1 1626W 192425 602250 105428 5 x 4 Medtronic Medtronic 1 [id number] 007231 85509 269779 1 Launcher 6Fr AR 2.0 guide catheter Mosqueda Mosqueda 1 [id number] 562004 917475 852058 5 Whisper J Vascular 300cm 0.014 guide wire Medtronic Medtronic 1 [id number] 763066 241414 4 [id number] Resolute 3.5 X 15 stent Vascade 11/26 Cardiva 1 [id number] 910945 940470 419016 5 Fr Closure Medical, Device Inc. Signature Audit Mcdonough Stage Time Signature Unsigned Intra-Procedure 07/25/2016 Balbina 12:56:11 PM Counts RT(R) Signatures Monitor : Balbina Signature : Counts RT Date : Time : [place] [id number] [facility] [place] [address]
[~2016-07-25 08:48] MED LIST changes: +NIFEDIPINE ER60 MG PO
[2016-07-25 10:51] VITALS: BP 141/63; Ht 180.3 cm; Wt 81.8 kg
[2016-07-25 11:02] LABS: BASOPHILS 0.6 % (0.0-2.0); EOSINOPHILS 4.6 % (0-7); HEMATOCRIT 42.6 % (42.0-54.0); HEMOGLOBIN 14.6 g/dL (13.5-17.5); LYMPHOCYTES 22.4 % (15-50); MCH 30.8 pg (26.0-34.0); MCHC 34.3 g/dL (31.0-37.0); MCV 89.9 fL (80.0-100.0); MEAN PLATELET VOLUME 9.6 fL (7.4-10.4); MONOCYTES 10.3 % (2-11); NEUTROPHILS 62.1 % (40-80); PLATELET COUNT 250 10x3/uL (130-400); RBC 4.74 10x6/uL (4.20-6.10); RDW 13.1 % (11.5-14.5); WBC 6.5 10x3/uL (4.8-10.8)
[2016-07-25 11:11] LABS: ANION GAP 15.6 mmol/L (8-16); CALCIUM 9.4 mg/dL (8.5-10.1); CARBON DIOXIDE 25.6 mmol/L (21.0-32.0); CREATININE - SERUM 1.1 mg/dL (0.6-1.3); POTASSIUM - SERUM 5.2 mmol/L (3.5-5.1)
--- NOTE | 2016-07-25 13:30 | NUR ---
1330 CHEST PAIN IS DENIED WITH VSS. 6 FR VASCADE L/GROIN CDI NO BLEEDING NO HEMATOMA NOTED. INSTRUCTED PATIENT TO KEEP HEAD FLAT ON PILLOW WITH LLE STRAIGHT. FAMILY AT SIDE
--- NOTE | 2016-07-25 13:58 | NUR ---
VSS WITH CHEST PAIN DENIED 6 FR VASCADE L/GROIN CDI NO BLEEDING NO HEMATOMA NOTED. AT SIDE ASSISTING WITH SANDWICH AND SODA NAUSEA DENIED
--- NOTE | 2016-07-25 14:30 | NUR ---
1430 NO CHANGE IN ASSESSMENT PATIENT RESTING QUIELTY WITH EYES CLOSED NO DISTRESS VSS 1500 6 FR VASCADE L/GROIN CDI NO BLEEDING NO HEMATOMA NOTED VSS WITH FAMILY AT SIDE
--- NOTE | 2016-07-25 15:34 | NUR ---
REPORT CALLED TO JOSE IN OUTPATIENT WITH PATIENT TRANSPORTED VIA STRETCHER 6 FR VASCADE L/GROIN CDI NO BLEEDING NO HEMATOMA CHEST PAIN DENIED
--- NOTE | 2016-07-25 15:39 | NUR ---
1525 RECEIVED FROM LEADITE HEATER. LEFT GROIN DRESSING C/D/I NO BLEEDING PPX2 LEFT,NO BLEEDING.
--- NOTE | 2016-07-25 16:37 | NUR ---
1625 SOME SLEEPY KEEPING LEFT LEG STRAIGHT NO BLEEDING OR HEMATOMA PPX2.
--- NOTE | 2016-07-25 17:05 | NUR ---
1645 HOB ELEVATED. 1655 IV DCD CATHETER INTACT. WENT OVER DISCHARGE INSTRUCTIONS AND PLAVIX SCRIPT APPOINTMENT AND TO CONTINUE HOME MEDS. UNDERSTANDS POST CATH INSTRUCTIONS.
--- NOTE | 2016-07-25 17:26 | NUR ---
1710 DISCHARGED TO HOME VIA W/C.
--- NOTE | 2016-07-31 13:59 | OP ---
PATIENT NAME: KAREN AYALA MEDICAL RECORD: [id number] :38 LOCATION:[facility] ADMISSION DATE: SURGEON: MADELINE BOOKER MD DATE OF OPERATION: 07/25/2016 PROCEDURES: 1. PTCA stent RCA. 2. Selective coronary angiography. PROCEDURE IN DETAIL: After informed consent was obtained and after a detailed explanation of risks, benefits as well as alternative therapies, the patient elected to proceed with angiogram and angioplasty. The left femoral area was prepped and draped in normal sterile fashion. Left femoral artery was cannulated via modified Seldinger technique with placement of a 6-Martiniquais sheath. All catheters exchanged through this sheath. FINDINGS: The right coronary has 75% to 80% in-stent restenosis in the proximal vessel. This was addressed with a 3.5 x 15 mm Resolute stent. Result was 0% residual stenosis. OVERALL IMPRESSION: Successful percutaneous transluminal coronary angioplasty stent of the right coronary artery going from 75% to 80% in-stent restenosis to 0% residual. TRANSINT:[id number] Voice Confirmation ID: [id number] DOCUMENT ID: [id number] MADELINE BOOKER MD at 1359 CC: [id number] DICTATION DATE: 07/25/16 1252 COACH BUILDER: 07/25/16 1758 [facility] CLI 07/25/16 [place] [id number] [place] [address]
--- NOTE | 2016-07-31 13:59 | HP ---
PATIENT: KAREN AYALA MEDICAL RECORD: [id number] ACCOUNT: [id number] LOCATION:[facility] : 38 ADMISSION DATE: 07/25/16 HISTORY AND PHYSICAL EXAMINATION ADMITTING DIAGNOSES: 1. Angina. 2. Coronary artery disease. 3. Recent percutaneous transluminal coronary angioplasty stent of the left circumflex with significant disease of the right coronary artery. 4. Hypertension. 5. Hyperlipidemia. HISTORY OF PRESENT ILLNESS: This is a gentleman who presents with anginal symptomatology, found to have 2-vessel coronary artery disease of the RCA and left circumflex, underwent successful PTCA stent of the left circumflex, now brought back for PTCA stent of the RCA in a staged fashion. PHYSICAL EXAMINATION: GENERAL APPEARANCE: Well-nourished, well-developed, appears stated age. Level of distress, comfortable. PSYCHIATRIC: Mental status, alert, normal affect. Orientation, oriented to time, place and person. EYES: Lids and conjunctiva, noninjected. No discharge, no pallor. ENT: Lips, teeth, gums, normal dentition. Oropharynx, no cyanosis, no pallor. NECK: Carotid arteries, bilateral normal upstroke, no bruits, no thrills. JUGULAR VEINS: No jugular venous pressure or distention. CERVICAL LYMPH NODES: Nontender, nonenlarged. THYROID: Not enlarged. Nontender. No nodules. LUNGS: Respiratory effort, unlabored. CHEST: Normal curvature. No thoracic deformity. No chest wall tenderness. Percussion, resonant. Auscultation, clear. No wheezes, no rales, no rhonchi. CARDIOVASCULAR: Precordial exam, nondisplaced. No heaves or pericardial thrills. Rate and rhythm, regular. Heart sounds, normal S1, normal S2. No S3, no gallop, no rub. Systolic murmur, not heard. Diastolic murmur, not heard. EXTREMITIES: No cyanosis, no edema. Peripheral pulses, full and equal in all extremities, except as noted. No bruits appreciated. ABDOMEN: Soft, nondistended. Normal aorta. No bruit. Nontender. No masses. Liver, nontender, no hepatomegaly. Spleen, nontender, no splenomegaly. MUSCULOSKELETAL: No joint tenderness. No joint swelling. No erythema. NEUROLOGICAL: Normal gait, normal strength, normal tone. SKIN: Warm and dry. REVIEW OF SYSTEMS: The patient reports easy bruising but reports no swollen glands. The patient reports no fever, no night sweats, no significant weight gain, no significant weight loss. No significant exercise tolerance. The patient reports no dry eyes, no irritation, no vision change. Patient reports no difficulty hearing and no ear pain. Patient reports no frequent nose bleeds or nose and sinus problems. Patient reports on arm pain on exertion. No shortness of breath while lying down. No history of heart murmur. Patient reports no cough, no wheezing or coughing up blood. Patient reports no abdominal pain, no vomiting. Normal appetite. No diarrhea and not vomiting blood. No nausea and no constipation. Patient reports no incontinence. No difficulty urinating. No hematuria. No increased frequency. Patient reports no muscle aches. No weakness, no arthralgias, no back pain. No swelling of the HISTORY AND PHYSICAL [id number] KAREN AYALA extremities. Patient reports no abnormal mole, no jaundice, no rashes. Reports no loss of consciousness. No weakness and no numbness. No seizures, dizziness, or headaches. The patient reports no depression, no sleep disturbance, feeling safe in a relationship and no alcohol abuse. Patient reports on fatigue. Reports no runny nose or sinus pressure. No itching, no hives, and no frequent sneezing. OVERALL IMPRESSION: Anginal symptomatology with significant disease of the right coronary artery. We will proceed with percutaneous transluminal coronary angioplasty stent of the right coronary artery. TRANSINT:[id number] Voice Confirmation ID: [id number] DOCUMENT ID: [id number] MADELINE BOOKER MD at 1359 CC: [id number] DICTATION DATE: 07/25/16 1228 FOLDING MACHINE OPERATOR: 07/25/16 1429 [facility] CLI 07/25/16 [place] [id number]
== END 2016-07-25 17:10 | disposition home or self-care (01) ==
LOC: D.CATH 08:48
PROVIDERS: Internal Medicine Interventional Cardiology
DX: I25.119 Atherosclerotic heart disease of native coronary artery with unspecified angina pectoris (principal); T82.855A Stenosis of coronary artery stent, initial encounter; I10 Essential (primary) hypertension; E78.5 Hyperlipidemia, unspecified

== ENCOUNTER 2017-02-13 09:45 | Outpatient (CLI) | payer MEDICARE ==
[2016-07-25 10:51] VITALS: BMI 25.1
--- NOTE | ~2017-02-13 | HEMODYNAMI ---
PATIENT:KAREN AYALA MEDICAL RECORD: [id number] : 38 LOCATION:DRositaCAT ADMISSION DATE: 02/13/17 Generatedon:02/13/201713:55 Patient name: KAREN AYALA Patient #: [id number] SSN: [id number] : 1940 Date of study: 02/13/2017 Page: Of Hemodynamic Procedure Report Patient Data Patient Demographics Procedure consent was obtained First Name: KAREN Gender: Male Last Name: LUCY : 1940 [facility] Initial: E Age: 76 year(s) Patient #: [id number] Race: SSN: [id number] Additional ID: [id number] Contact details Address: [place] [address] State: [place] City: [place] Zip code: [address] Past Medical History Allergies: No known allergies Admission Admission Data Admission Date: 02/13/2017 Admission Time: 9:45 Height (in.): 71 BSA: 2.02 (m2) Height (cm.): 180.34 BMI: 25.1 (kg/m2) Weight (lbs.): 180 Weight (kg.): 81.65 Lab Results Lab Result Date: 02/13/2017 Lab Result Time: 0:00 Biochemistry Name Units Result Min Max CK-MB ng/ml 1.2 --(-*--)-- 0 3.6 Creatinine mg/dl 1.3 --(---*)-- 0.6 1.3 Creatinine l 104 --(-*--)-- 21 215 Kinase Troponin l ng/ml 0.017 --(-*--)-- 0 0.06 CBC Name Units Result Min Max Hemoglobin g/dl 15.2 --(-*--)-- 13.5 17.5 Procedure Procedure Types Cath Procedure Diagnostic Procedure [facility] w/Coronaries PCI Procedure Coronary Stent Initial Miscellaneous Procedures Moderate Sedation up to 15 minutes Procedure Description Procedure Date Procedure Date: 02/13/2017 Procedure Start Time: 13:35 Procedure End Time: 13:54 Procedure Staff Name Function Rodrigo Carreon MD Performing Physician Tiffany Velarde RT Scrub Kyrie Gamboa RT Scrub Romain Zhang RN Nurse Balbina Dias RT Monitor Dandre Shaffer RN Engineering Specialist Technician Procedure Data Cath Procedure Fluoroscopy Diagnostic fluoroscopy Total fluoroscopy Time: 4.2 time: 4.2 min min Diagnostic fluoroscopy Total fluoroscopy dose: 534 dose: 534 mGy mGy Contrast Material Contrast Material Type Amount (ml) Isovue 300 79 Entry Location Entry Primary Successful Side Size Upsize Upsize Entry Closure Succes sful Closure Location (Fr) 1 (Fr) 2 (Fr) Remarks Device Remarks Femoral Right 6 Fr Exoseal artery Short Estimated blood loss: 5 ml Diagnostic catheters Device Type Used For End Catheter Placement Cordis 5Fr Pigtail LV Angiography Catheter (MP) Cordis 5Fr JL 4.0 Left Coronary Catheter (MP) Angiography Cordis 5Fr 3DRC Catheter Right Coronary (MP) Angiography Procedure Complications No complications Procedure Medications Medication Administration Route Dosage Oxygen NC 2 l/min Lidocaine 2% added to field 20 Heparin Flush Bag added to field 2 bags (1000units/500ml NS) 0.9% NaCl I.V. 100 ml/hr Versed I.V. 1 mg Fentanyl I.V. 50 mcg Versed I.V. 1 mg Fentanyl I.V. 50 mcg Heparin Bolus I.V. 4000 units Fentanyl I.V. 25 mcg Hemodynamics Rest BSA: 2.02 (m2) HGB: 15.2 (g/dl) O2 Consumption: Estimated: 224.25 (ml/min) O2 Co nsumption indexed: Estimated:111.01 (ml/min/m) Heart Rate: 60 (bpm) Snapshots Pre Cath Intra NCS Post Cath Vital Signs Time Heart Resp SPO2 NIBP (mmHg) Rhythm Pain Sedation Rate (ipm) (%) Status Level (bpm) 13:27:05 60 18 98 167/79(140) NSR 0 (11) 10(A) , No pain 13:31:31 52 17 96 151/61(126) NSR 0 (11) 10(A) , No pain 13:36:47 51 16 97 129/69(108) NSR 0 (11) 10(A) , No pain 13:42:02 56 18 94 118/90(106) NSR 0 (11) 9(A) , No pain 13:46:16 51 17 96 121/51(104) NSR 0 (11) 9(A) , No pain 13:50:22 58 16 95 126/86(104) NSR 0 (11) 9(A) , No pain 13:54:34 65 16 96 136/72(112) NSR 0 (11) 10(A) , No pain Medications Time Medication Route Dose Verified Delivered Reason Notes Effectiveness by by 13:25:20 Oxygen NC 2 Rodrigo Buffie used for l/min Velma Zhang RN procedure 13:25:29 Lidocaine 2% added 20ml Rodrigo Rodrigo used for to vial Velma Carreon MD procedure field 13:25:36 Heparin Flush added 2 Rodrigo Rodrigo used for Bag to bags Velma Carreon MD procedure (1000units/500ml field NS) 13:25:46 0.9% NaCl I.V. 100 Rodrigo Buffie Per physician ml/hr Velma Zhang RN 13:34:37 Versed I.V. 1 mg Rodrigo Buffie for sedation Velma Zhang RN 13:34:42 Fentanyl I.V. 50 Rodrigo Buffie for sedation mcg Velma Zhang RN 13:38:03 Versed I.V. 1 mg Rodrigo Buffie for sedation Velma Zhang RN 13:38:06 Fentanyl I.V. 50 Rodrigo Buffie for sedation mcg Velma Zhang RN 13:41:39 Heparin Bolus I.V. 4000 Rodrigotariq Casillasie for verifi ed units Velma Zhang RN anticoagulation with dr carreon 13:45:54 Fentanyl I.V. 25 Rodrigo Buffie for sedation mcg Velma Zhang RN Procedure Log Time Note 12:50:43 Dandre Shaffer RN sent for patient. Start room use. 12:50:44 Time tracking: Regular hours 12:50:49 Plan of Care:Hemodynamics will remain stable., Cardiac rhythm will remain stable., Comfort level will be maintained., Respiratory function will remain adequate., Patient/ family verbilizes understanding of procedure., Procedure tolerated without complication., Recovers from procedure without complications.. 13:18:04 Patient received from ED to [facility] 2 Alert and oriented. Tansferred to table in Supine position. 13:18:05 Warm blankets applied, and michelle hugger turned on for patient comfort. 13:18:06 Correct patient and procedure confirmed by team. 13:18:07 Signed procedure consent form obtained from patient. 13:18:08 ECG and BP/O2 sat monitors applied to patient. 13:18:09 Full Disclosure recording started 13:25:20 Oxygen 2 l/min NC was administered by Romain Zhang RN; used for procedure; 13:25:29 Lidocaine 2% 20ml vial added to field was administered by Rodrigo Carreon MD; used for procedure; 13:25:36 Heparin Flush Bag (1000units/500ml NS) 2 bags added to field was administered by Rodrigo Carreon MD; used for procedure; 13:25:46 0.9% NaCl 100 ml/hr I.V. was administered by Romain Zhang RN; Per physician; 13:25:49 Vital chart was started 13:26:28 Baseline sample Acquired. 13:26:30 Rhythm: sinus rhythm 13:27:13 H&P Date Dictated: 02/13/2017 ER History on chart.. 13:27:14 Pre-procedure instructions explained to patient. 13:27:15 Pre-op teaching completed and patient verbalized understanding. 13:27:17 Family in waiting room. 13:27:18 Patient NPO since Midnight. 13:27:26 Patient allergic to No known allergies 13:27:29 Is the patient allergic to Iodine/contrast media? No. 13:27:30 Is patient on blood thinner?Yes 13:27:32 ACC The patient was administered the following blood thiners within the last 24 hours: ACCPlavix 13:27:36 Patient diabetic? No. 13:27:40 Previous problem with sedation/anesthesia? No ? 13:27:41 Snore? Yes 13:27:44 Sleep apnea? No 13:27:45 Deviated septum? No 13:27:46 Opens mouth fully? Yes 13:27:47 Sticks out tongue? Yes 13:27:48 Airway obstruction? No ? 13:27:51 Dentures? Yes IN 13:27:54 Pre procedure: right dorsailis pedis pulse 2+ Normal; easily identifiable; not easily obliterated 13:27:57 Patient pain scale 0/10 ?. 13:28:06 IV patent on arrival in left antecubital with 0.9% NaCl at [facility]. 13::40 Lab Result : Creatinine 1.3 mg/dl 13::40 Lab Result : CK-MB 1.2 ng/ml 13::40 Lab Result : Troponin l 0.017 ng/ml ::40 Lab Result : Creatinine Kinase 104 l 13::40 Lab Result : Hemoglobin 15.2 g/dl 13:29:21 Patient Height : 180.34 cm 13:29:25 Patient Weight : 81.65 kg 13:29:58 Lab results completed and on chart. 13:30:01 Right groin area was prepped with chlora-prep and draped in sterile fashion 13:30:01 Alarms reviewed by R. N. 13:30:02 Sharps counted by scrub and verified by R.N. 13:30:06 Use device set Femoral Dx 13:30:07 Acist Syringe opened to sterile field. 13:30:07 Bag Decanter opened to sterile field. 13:30:08 Medline Cath Pack opened to sterile field. 13:30:09 St Zane 260cm J .035 wire opened to sterile field. 13:30:10 Acist Hand Control opened to sterile field. 13:30:11 Acist Manifold opened to sterile field. 13:30:11 Diagnostic Infinity 5Fr Multipack catheter opened to sterile field. 13:30:12 Tegaderm 4 x 4 opened to sterile field. 13:33:24 Final Timeout: patient, procedure, and site verified with staff and physician. All members of the team are in agreement. 13:33:27 Right groin site verified by team. 13:33:36 Physical assessment completed. ASA score P 2 - A patient with mild systemic disease as per Rodrigo Carreon MD. 13:33:39 Sedation plan: IV Moderate Sedation Versed, Fentanyl 13:34:36 Terumo 6Fr [place] Sheath opened to sterile field. 13:34:37 Versed 1 mg I.V. was administered by Romain Zhang RN; for sedation; 13:34:42 Fentanyl 50 mcg I.V. was administered by Romain Zhang RN; for sedation; 13:35:28 Procedure started. 13:35:31 Zero performed for pressure channel P1 13:35:47 Local anesthetic to right femoral artery with Lidocaine 2% by Rodrigo Carreon MD.INITIAL ACCESS ONLY 13:36:09 A 6 Fr Short sheath was inserted into the Right Femoral artery 13:37:50 A Cordis 5Fr Pigtail Catheter (MP) was advanced over the wire and used for LV Angiography. 13:38:02 LV gram done using ZAMBRANO 13:38:03 Versed 1 mg I.V. was administered by Romain Zhang RN; for sedation; 13:38:05 Injector settings: Ml/sec: 5, Volume: 15, 13:38:06 Fentanyl 50 mcg I.V. was administered by Romain Zhang RN; for sedation; 13:38:19 EF : 60 % 13:38:21 Catheter removed. 13:38:30 A Cordis 5Fr JL 4.0 Catheter (MP) was advanced over the wire and used for Left Coronary Angiography. 13:39:49 Catheter removed. 13:39:56 A Cordis 5Fr 3DRC Catheter (MP) was advanced over the wire and used for Right Coronary Angiography. 13:40:22 Social 2 Step BasixCompak Inflation Kit opened to sterile field. 13:40:22 Mosqueda Lunagamesisper J 300cm 0.014 guide wire opened to sterile field. 13:41:24 Catheter removed. 13:41:39 Heparin Bolus 4000 units I.V. was administered by Romain Zhang RN; for anticoagulation; verified with dr carreon 13:42:31 6 Fr XBLAD 3.5 guide catheter was inserted over the wire 13:43:07 Whisper wire advanced. 13:44:33 Inflation number: 2 The Mozec Rx 2.5 x 14 balloon was reinflated across the Prox LAD, to 13 GRACE for 0:10 (min:sec). 13:44:44 Inflation number: 3 The Mozec Rx 2.5 x 14 balloon was reinflated across the Prox LAD, to 13 GRACE for 0:10 (min:sec). 13:45:50 Balloon removed over the wire. 13:45:54 Fentanyl 25 mcg I.V. was administered by Romain Zhang RN; for sedation; 13:47:32 Inflation Number: 3 A [place] OTW 2.25 x 15 stent was prepped and advanced across the Prox LAD. The stent was deployed at 13 GRACE for 0:03 (min:sec). 13:47:45 Inflation number: 4 The stent balloon was then re-inflated across the Prox LAD to 15 GRACE for 0:05 (min:sec). 13:48:16 Stent catheter was removed intact over wire. 13:48:16 Wire removed. 13:48:16 Guide catheter removed. 13:48:27 Sheath removed intact; hemostasis achieved with Exoseal to the Right Femoral artery. 13:48:34 Cordis 6Fr Exoseal opened to sterile field. 13:48:37 Procedure ended.(Physican Out) 13:49:05 Fluoroscopy time 04.20 minutes. 13:49:10 Flurop Dose total: 534 13:49:10 Fluoroscopy dose: 534 mGy 13:49:12 Contrast amount:Isovue 300 79ml. 13:49:14 Sharps counted by scrub and verified by R.N. 13:49:15 Insertion/operative site no bleeding no hematoma. 13:49:18 Post-op/insertion site Right Femoral artery dressed using a 4 x 4 and Tegaderm. 13:49:21 Post right femoral artery:stable, clean and dry 13:49:22 Post Procedure Pulses reassessed and unchanged 13:49:24 Post-procedure physical assessment completed. ASA score P 2 - A patient with mild systemic disease as per Rodrigo Carreon MD. 13:49:26 Post procedure rhythm: unchanged. 13:49:28 Estimated blood loss: 5 ml 13:49:30 Post procedure instruction explained to patient.Patient verbalizes understanding. 13:49:30 Patient needs reinforcement of post procedure teaching. 13:49:46 Procedure type changed to Cath procedure, Diagnostic procedure, LHC, LHC w/Coronaries, PCI procedure, Coronary Stent Initial, Miscellaneous Procedures, Moderate Sedation up to 15 minutes 13:49:54 Procedure Complication : No complications 13:49:56 See physician's report for complete and final results. 13:51:06 Cordis 6FR XBLAD 3.5 guide catheter opened to sterile field. 13:52:51 Procedure and supply charges have been captured, reviewed, submitted and are correct. 13:54:07 Vital chart was stopped 13:54:11 Report given to Pre/Post Procedure Room. 13:54:15 Patient transfered to Pre/Post Procedure Room with Stretcher. 13:54:25 Procedure ended. 13:54:25 Full Disclosure recording stopped 13:54:30 End room use (Document Last) Intervention Summary Intervention Notes Time ActionType Lesion and Equipment Action# Pressure Duration Attributes Used 13:44:33 Reinflate Prox LAD Mozec Rx 2 13 00:10 balloon 2.5 x 14 balloon 13:44:44 Reinflate Prox LAD Mozec Rx 3 13 00:10 balloon 2.5 x 14 balloon 13:47:32 Place stent Prox LAD [place] OTW 3 13 00:03 2.25 x 15 stent 13:47:45 Reinflate Prox LAD [place] OTW 4 15 00:05 stent 2.25 x 15 balloon stent Device Usage Item Name Manufacture Quantity Catalog Hospital Part Current Minimal Lot# / Number Charge Number Stock Stock Serial# Code Acist Acist 1 [id number] 668936 596364 532678 20 Syringe Medical Systems Teladoc Bag Microtek 1 2002S 685172 41650 125983 5 [place]. Medline Cardinal 1 [id number] 086631 61057 238974 [address] Z[address] St Zane 1 [id number] 080643 648705 104440 30 260cm J .035 wire Acist Hand Acist 1 79794 212464 682401 039772 5 Openfolio Medical Systems Inc Acist Acist 1 25640 852873 181538 885136 5 HireWheel [employer] Inc Diagnostic Cardinal 1 [id number] 627139 92236 589138 30 5 Star Mobile 5Fr Multipack catheter Tegaderm 4 3M 1 1626W 485556 895837 080104 5 x 4 Terumo 6Fr Terumo 1 [id number] 058645 126799 098591 40 Bradford Sheath Cordis 5Fr Cardinal 1 047776 5 Pigtail Health Catheter (MP) Cordis 5Fr Cardinal 1 456082 5 JL 4.0 Health Catheter (MP) Cordis 5Fr Cardinal 1 456322 5 3DRC Health Catheter (MP) Merit Merit 1 [id number] 010999 376973 870240 15 BasixCompak Medical Inflation Kit Mosqueda Mosqueda 1 [id number] 999354 251079 966285 5 Whisper J Vascular 300cm 0.014 guide wire Mozec Rx Cardinal 1 [id number] 890519 62491 877685 5 UMOA84 2.5 x 14 Health balloon [place] OTW Medtronic 1 [id number] 754635 64705 302913 5 [id number] 2.25 x 15 stent Cordis 6Fr Cardinal 1 EX600 179143 532477 018540 10 [facility] Cordis 6FR [place] 1 [id number] 426870 883314 943649 10 XBLAD 3.5 Health guide catheter Signature Audit [place] Stage Time Signature Unsigned Intra-Procedure 02/13/2017 Balbina 1:55:50 PM Counts RT(R) Signatures Monitor : Balbina Signature : Counts RT Date : Time : [address] [id number] [place] [address]
[2017-02-13 10:19] LABS: HEMATOCRIT 43.3 % (42.0-54.0); HEMOGLOBIN 15.2 g/dL (13.5-17.5); LYMPHOCYTES 24.6 % (15-50); MCH 30.8 pg (26.0-34.0); MCHC 35.1 g/dL (31.0-37.0); MCV 87.7 fL (80.0-100.0); MEAN PLATELET VOLUME 8.9 fL (7.4-10.4); PLATELET COUNT 293 10x3/uL (130-400); RBC 4.94 10x6/uL (4.20-6.10); RDW 13.6 % (11.5-14.5); WBC 6.7 10x3/uL (4.8-10.8)
[2017-02-13 10:33] LABS: ALKALINE PHOSPHATASE 81 U/L (46-116); ALT (SGPT) 26 U/L (10-68); CALC OSMOLALITY 272 mosm/kg (275-300); CALCIUM 9.1 mg/dL (8.5-10.1); CARBON DIOXIDE 27.5 mmol/L (21.0-32.0); CHLORIDE - SERUM 98 mmol/L (98-107); CREATININE - SERUM 1.3 mg/dL (0.6-1.3); GLUCOSE 106 mg/dL (74-106); POTASSIUM - SERUM 4.3 mmol/L (3.5-5.1); PROTEIN - SERUM 7.8 g/dL (6.4-8.2); SODIUM 135 mmol/L (136-145); UREA NITROGEN 21 mg/dL (7-18); eGFR NON AFRICAN AMERICAN 57 mL/min (90-120)
[2017-02-13 10:44] LABS: CHOL - HDL RATIO 6.3 ratio (2.3-4.9); CHOLESTEROL, TOTAL 228 mg/dL (0-200); CKMB 1.2 U/L (0.0-3.6); CREATINE KINASE 104 UL (21-232); HDL CHOLESTEROL 36 mg/dL (32-96); LDL CHOLESTEROL 157 mg/dL (0-100); LDL-HDL RATIO 4.4 ratio (1.5-3.5); TRIGLYCERIDE 176 mg/dL (30-200); TROPONIN-I < 0.017 ng/mL (0.000-0.060)
--- NOTE | 2017-02-13 15:11 | NUR ---
1425 LYING FLAT, AWAKE AND ALERT, TALKING WITH AT BEDSIDE. SBRADY RATE 56 WNO C/O CHEST PAIN. PULSES PALP X 4. R GROIN 6F EXOSEAL C/D/I WITH NO HEMATOMA OR BLEEDING. 1505 EATING TURKEY SANDWICH AND SIPPING SODA WITH ASSIST FROM . R GROIN REMAINS C/D/I WITH NO HEMATOMA OR BLEEDING.
--- NOTE | 2017-02-13 16:41 | NUR ---
1605 RESTING WITH EYES CLOSED, ALL VITALS WNL. R GROIN REMAINS C/D/I WITH NO HEMATOMA OR BLEEDING. FAMILY AT BEDSIDE.
--- NOTE | 2017-02-13 17:35 | NUR ---
PIV REMOVED FROM LEFT AC WITH BANDAID APPLIED. UP TO BEDSIDE TO DRESS WITH AT BEDSIDE.
--- NOTE | 2017-02-13 17:48 | NUR ---
D/C INSTRUCTIONS DISCUSSED WITH PATIENT AND AT BEDSIDE. WHEELED OUT VIA WHEELCHAIR BY CATH TEAM.
--- NOTE | 2017-02-17 09:51 | OP ---
PATIENT NAME: KAREN AYALA MEDICAL RECORD: [id number] :38 LOCATION:D.CAT ADMISSION DATE: SURGEON: MADELINE BOOKER MD DATE OF OPERATION: 02/13/2017 PROCEDURES: 1. PTCA stent LAD. 2. Left heart catheterization. 3. Selective coronary angiography. 4. Left ventriculogram. INDICATION: Angina and coronary artery disease. PROCEDURE IN DETAIL: After informed consent was obtained and after a detailed explanation of risks, benefits as well as alternative therapies, the patient elected to proceed with angiogram and angioplasty. The right femoral area is prepped and draped in normal sterile fashion. Right femoral artery was cannulated via modified Seldinger technique with placement of 6-[place]gent[place] sheath. All catheters exchanged through this sheath. FINDINGS: The left ventriculogram was performed in standard 30-degree ZAMBRANO view, reveals good cardiac wall motion throughout all segments. Overall ejection fraction estimated 60%. SELECTIVE CORONARY ANGIOGRAPHY: 1. Left main is with no significant angiographic disease. 2. Left anterior descending has previously placed stents. There is 80% to 90% in-stent restenosis followed by a new 80% stenosis after the stented area. 3. Left circumflex has mild irregularities, but no flow-limiting stenosis. 4. The right coronary has previously placed stents, these are widely patent. PTCA STENT OF THE LAD: The stent used is a 2.25 x 15 mm [place]. Result was 0% residual stenosis. OVERALL IMPRESSION: Successful percutaneous transluminal coronary angioplasty stent of the left anterior descending going from 90% initial stenosis to 0% residual. TRANSINT:[id number] Voice Confirmation ID: [id number] DOCUMENT ID: [id number] MADELINE BOOKER MD at 0951 CC: [id number] DICTATION DATE: 02/13/17 1352 MAJOR APPLIANCE ASSEMBLY SUPERVISOR: 02/13/171 [facility] CLI 02/13/17 [place] [address]
--- NOTE | 2017-02-17 09:51 | CN ---
PATIENT NAME:KAREN AYALA MEDICAL RECORD: [id number] : 38 LOCATION:DKONSTANTIN ADMIT DATE: ACCOUNT: [id number] CONSULTING PHYSICIAN: MADELINE BOOKER MD REFERRING PHYSICIAN: MADELINE BOOKER MD DATE OF CONSULTATION: 02/13/2017 DIAGNOSES: 1. Unstable angina. 2. Coronary artery disease. 3. Previous multivessel percutaneous transluminal coronary angioplasty stent. 4. Hypertension. 5. Hyperlipidemia. HISTORY OF PRESENT ILLNESS: Mr. Ayala was seen in clinic yesterday with increasing episodes of chest pain, chest discomfort compatible with angina. He was set for cardiac catheterization; however, the chest pain has worsened. He now presents to the Emergency Room. His EKG is with no acute ST-T abnormalities. He continues to have chest pain compatible with angina status post PTCA stent, the last being July of this year. PHYSICAL EXAMINATION: GENERAL APPEARANCE: Well-nourished, well-developed, appears stated age. Level of distress, comfortable. PSYCHIATRIC: Mental status, alert, normal affect. Orientation, oriented to time, place and person. EYES: Lids and conjunctiva, noninjected. No discharge, no pallor. ENT: Lips, teeth, gums, normal dentition. Oropharynx, no cyanosis, no pallor. NECK: Carotid arteries, bilateral normal upstroke, no bruits, no thrills. JUGULAR VEINS: No jugular venous pressure or distention. CERVICAL LYMPH NODES: Nontender, nonenlarged. THYROID: Not enlarged. Nontender. No nodules. LUNGS: Respiratory effort, unlabored. CHEST: Normal curvature. No thoracic deformity. No chest wall tenderness. Percussion, resonant. Auscultation, clear. No wheezes, no rales, no rhonchi. CARDIOVASCULAR: Precordial exam, nondisplaced. No heaves or pericardial thrills. Rate and rhythm, regular. Heart sounds, normal S1, normal S2. No S3, no gallop, no rub. Systolic murmur, not heard. Diastolic murmur, not heard. EXTREMITIES: No cyanosis, no edema. Peripheral pulses, full and equal in all extremities, except as noted. No bruits appreciated. ABDOMEN: Soft, nondistended. Normal aorta. No bruit. Nontender. No masses. Liver, nontender, no hepatomegaly. Spleen, nontender, no splenomegaly. MUSCULOSKELETAL: No joint tenderness. No joint swelling. No erythema. NEUROLOGICAL: Normal gait, normal strength, normal tone. SKIN: Warm and dry. REVIEW OF SYSTEMS: The patient reports easy bruising but reports no swollen glands. The patient reports no fever, no night sweats, no significant weight gain, no significant weight loss. No significant exercise tolerance. The patient reports no dry eyes, no irritation, no vision change. Patient reports no difficulty hearing and no ear pain. Patient reports no frequent nose bleeds or nose and sinus problems. Patient reports on arm pain on exertion. No shortness of breath while lying down. No history of heart murmur. Patient reports no cough, no wheezing or coughing up blood. Patient reports no abdominal pain, no vomiting. Normal appetite. No diarrhea and not vomiting CONSULT REPORT [id number] KAREN AYALA. No nausea and no constipation. Patient reports no incontinence. No difficulty urinating. No hematuria. No increased frequency. Patient reports no muscle aches. No weakness, no arthralgias, no back pain. No swelling of the extremities. Patient reports no abnormal mole, no jaundice, no rashes. Reports no loss of consciousness. No weakness and no numbness. No seizures, dizziness, or headaches. The patient reports no depression, no sleep disturbance, feeling safe in a relationship and no alcohol abuse. Patient reports on fatigue. Reports no runny nose or sinus pressure. No itching, no hives, and no frequent sneezing. OVERALL IMPRESSION: Chest pain compatible with angina in an unstable fashion. We will proceed with coronary angiography. Further care depends upon the findings of the angiography. TRANSINT:[id number] Voice Confirmation ID: [id number] DOCUMENT ID: [id number] MADELINE BOOKER MD at 0951 CC: [id number] DICTATION DATE: 02/13/17 1115 FILM RENTAL CLERK: 02/13/17 1835 [facility] CLI 02/13/17 [place] [id number] [place] [id number]
== END 2017-02-13 17:49 | disposition home or self-care (01) ==
LOC: D.ER 09:45 → D.CATH 09:45 → EDSTATUS 12:00 → D.CATH 17:49
PROVIDERS: Emergency Medicine
DX: I25.110 Atherosclerotic heart disease of native coronary artery with unstable angina pectoris (principal); Z95.5 Presence of coronary angioplasty implant and graft; I10 Essential (primary) hypertension; E78.5 Hyperlipidemia, unspecified; Z01.812 Encounter for preprocedural laboratory examination
CPT/HCPCS: 93458; C9600

== ENCOUNTER 2017-11-20 09:06 | Outpatient (CLI) | payer MEDICARE ==
--- NOTE | ~2017-11-20 | OP ---
PATIENT NAME: KAREN AYALA MEDICAL RECORD: [id number] :38 LOCATION:D.CAT ADMISSION DATE: SURGEON: MADELINE BOOKER MD DATE OF OPERATION: 11/20/2017 PROCEDURES: 1. PTCA stent RCA. 2. Left heart catheterization. 3. Selective coronary angiography. 4. Left ventriculogram. INDICATION: Angina and coronary artery disease. PROCEDURE IN DETAIL: After informed consent was obtained and after a detailed description of risks, benefits as well as alternative therapies, the patient elected to proceed with angiogram and angioplasty. The right femoral area is prepped, draped in normal sterile fashion. Right femoral artery was cannulated via modified Seldinger technique with placement of 6-[place] sheath. All catheters exchanged through this sheath. FINDINGS: The left ventriculogram was performed in standard 30-degree ZAMBRANO view, reveals good cardiac wall motion throughout all segments. Overall ejection fraction estimated at 55% to 60%. SELECTIVE CORONARY ANGIOGRAPHY: 1. There is no left main. 2. Left circumflex has moderate irregularities, but no flow-limiting stenosis. 3. The left anterior descending has a long area of 70% to 80% stenosis in the mid vessel. 4. Right coronary has 70% to 80% stenosis in mid vessel. PTCA STENT OF THE RIGHT CORONARY ARTERY: Stent used was 4.0 x 18 mm Shreyas. Result was 0% residual stenosis. OVERALL IMPRESSION: Successful PTCA stent of the RCA going from 70% to 80% initial stenosis to 0% residual. PLAN: PTCA stent of the LAD in the near future. TRANSINT:[id number] Voice Confirmation ID: [id number] DOCUMENT ID: [id number] MADELINE BOOKER MD at 1403 CC: [id number] DICTATION DATE: 11/25/17 1040 TRUCK SAFETY INSPECTOR: 11/25/17 1307 [facility] CLI 11/20/17 [place] [address]
--- NOTE | ~2017-11-20 | HEMODYNAMI ---
PATIENT:KAREN AYALA MEDICAL RECORD: [id number] : 38 LOCATION:[facility] ADMISSION DATE: 11/20/17 Generatedon:11/20/201714:43 Patient name: KAREN AYALA Patient #: [id number] SSN: [id number] : 1940 Date of study: 11/20/2017 Page: Of Hemodynamic Procedure Report Patient Data Patient Demographics Procedure consent was obtained First Name: KAREN Gender: Male Last Name: LUCY : 1940 Middle Initial: E Age: 77 year(s) Patient #: [id number] Race: SSN: [id number] Additional ID: [id number] Contact details Address: [place] [address] State: [place] City: [place] Zip code: [address] Past Medical History Allergies: No known allergies Admission Admission Data Admission Date: 11/20/2017 Admission Time: 9:06 Procedure Procedure Types Cath Procedure Diagnostic Procedure LHC LHC w/Coronaries PCI Procedure Coronary Stent Coronary Stent Initial Procedure Description Procedure Date Procedure Date: 11/20/2017 Procedure Start Time: 14:27 Procedure End Time: 14:40 Procedure Staff Name Function Rodrigo Carreon MD Performing Physician Brigid Bonds RT Monitor Pretty Calles RT Scrub Romain Zhang RN Nurse Procedure Data Cath Procedure Fluoroscopy Diagnostic fluoroscopy Total fluoroscopy Time: 2.5 time: 2.5 min min Diagnostic fluoroscopy Total fluoroscopy dose: 528 dose: 528 mGy mGy Contrast Material Contrast Material Type Amount (ml) Isovue 300 72 Entry Location Entry Primary Successful Side Size Upsize Upsize Entry Closure Succes sful Closure Location (Fr) 1 (Fr) 2 (Fr) Remarks Device Remarks Femoral Right 5 Fr 6 Fr artery Short Estimated blood loss: 10 ml Diagnostic catheters Device Type Used For End Catheter Placement MULTIPACK Pigtail 5 Fr Procedure catheter MULTIPACK JL 4.0 5Fr Procedure catheter DIAGNOSTIC JL 3.5 5Fr Procedure catheter ([id number]) MULTIPACK 3DRC 5Fr Procedure catheter Procedure Complications No complications Procedure Medications Medication Administration Route Dosage Oxygen NC 2 l/min Lidocaine 2% added to field 20 Heparin Flush Bag added to field 2 bags (1000units/500ml NS) 0.9% NaCl I.V. 100 ml/hr Versed I.V. 1 mg Fentanyl I.V. 50 mcg Heparin Bolus I.V. 4000 units Versed I.V. 1 mg Fentanyl I.V. 50 mcg Hemodynamics Rest Heart Rate: 58 (bpm) Pressure Samples Time Site Value (mmHg) Purpose Heart Use Rate(bpm) 14:28 LV 124/8,-11 Snapshot 71 14:29 LV 206/-26,10 Snapshot 61 Snapshots Pre Cath Intra NCS Post Cath Vital Signs Time Heart Resp SPO2 etCO2 NIBP (mmHg) Rhythm Pain Sedation Rate (ipm) (%) (mmHg) Status Level (bpm) 14:03:51 57 19 98 12.6 160/79(133) NSR 0 (11) 10(A) , No pain 14:08:15 57 24 98 12.6 160/77(141) NSR 0 (11) 10(A) , No pain 14:13:51 56 16 98 19.6 154/73(136) NSR 0 (11) 10(A) , No pain 14:18:13 57 15 98 14.1 161/77(146) NSR 0 (11) 10(A) , No pain 14:22:37 58 15 92 18.9 165/84(144) NSR 0 (11) 10(A) , No pain 14:27:04 60 16 94 20 156/80(137) NSR 0 (11) 10(A) , No pain 14:31:32 55 19 96 24.4 159/69(133) NSR 0 (11) 9(A) , No pain 14:37:08 58 15 98 18.2 151/68(125) NSR 0 (11) 9(A) , No pain 14:41:24 59 16 95 22.2 139/72(127) NSR 0 (11) 10(A) , No pain Medications Time Medication Route Dose Verified Delivered Reason Notes Effectiveness by by 14:17:07 Oxygen NC 2 Rodrigo Hoyos used for l/min Velma Zhang fws faculty assistant 14:17:14 Lidocaine 2% added 20ml Rodrigo Wallace for local to vial Velma Carreon MD anesthetic field 14:17:20 Heparin Flush added 2 Rodrigotariq Wallace used for Bag to bags Velma Carreon MD procedure (1000units/500ml field NS) 14:17:28 0.9% NaCl I.V. 100 Rodrigo Romain Per physician ml/hr Velma Zhang RN 14:26:50 Versed I.V. 1 mg Rodrigo Vinnyie for sedation Vemla Zhang RN 14:26:55 Fentanyl I.V. 50 Rodrigo Buffie for sedation mcg Velma Zhang RN 14:30:03 Versed I.V. 1 mg Rodrigo Casillasie for sedation Velma Zhang RN 14:30:08 Fentanyl I.V. 50 Rodrigo Casillasie for sedation mcg Velma Zhang RN 14:34:45 Heparin Bolus I.V. 4000 Rodrigotariq Casillasie for verifi ed units Velma Zhang RN anticoagulation with dr carreon Procedure Log Time Note 13:44:48 Informed consent obtained and on chart 13:44:52 Diagnostic Cath Status : Elective 13:45:12 Brigid GAMBLE(R) sent for patient. Start room use. 13:45:13 Time tracking: Regular hours (M-F 7:00 - 5:00) 13:45:18 Plan of Care:Hemodynamics will remain stable., Cardiac rhythm will remain stable., Comfort level will be maintained., Respiratory function will remain adequate., Patient/ family verbilizes understanding of procedure., Procedure tolerated without complication., Recovers from procedure without complications.. 13:50:58 Patient received from Pre/Post Procedure Room to CCL 2 Alert and oriented. Tansferred to table in Supine position. 13:50:59 Warm blankets applied, and michelle hugger turned on for patient comfort. 13:51:00 Correct patient and procedure confirmed by team. 13:51:01 ECG and BP/O2 sat monitors applied to patient. 14:02:33 Vital chart was started 14:02:34 Baseline sample Acquired. 14:02:39 Rhythm: sinus rhythm 14:02:44 Full Disclosure recording started 14:03:06 H&P Date Dictated: 11/19/2017 Within 30 days and on chart.. 14:03:07 Pre-procedure instructions explained to patient. 14:03:10 Family in patients room. 14:03:12 Patient NPO since Midnight. 14:03:20 Patient allergic to No known allergies 14:03:24 Is the patient allergic to Iodine/contrast media? No. 14:03:27 Is patient on blood thinner?Yes 14:03:31 ACC The patient was administered the following blood thiners within the last 24 hours: ACCPlavix 14:03:34 Patient diabetic? No. 14:03:41 Previous problem with sedation/anesthesia? No ? 14:03:43 Snore? Yes 14:03:44 Sleep apnea? No 14:03:46 Deviated septum? No 14:03:57 Patient pain scale 0/10 ?. 14:04:09 IV patent on arrival in left forearm with 0.9% NaCl at [facility]. 14:04:13 Lab results completed and on chart. 14:04:17 Right groin area was prepped with chlora-prep and draped in sterile fashion 14:04:18 Alarms reviewed by R. N. 14:04:19 Sharps counted by scrub and verified by R.N. 14:04:20 Physician paged 14:17:07 Oxygen 2 l/min NC was administered by Romain Zhang RN; used for procedure; 14:17:14 Lidocaine 2% 20ml vial added to field was administered by Rodrigo Carreon MD; for local anesthetic; 14:17:20 Heparin Flush Bag (1000units/500ml NS) 2 bags added to field was administered by Rodrigo Carreon MD; used for procedure; 14:17:28 0.9% NaCl 100 ml/hr I.V. was administered by Romain Zhang RN; Per physician; 14::32 Zero performed for pressure channel P1 14:26:14 Zero performed for pressure channel P1 14:26:18 Zero performed for pressure channel P1 14:26:22 Zero performed for pressure channel P1 14:26:29 Zero performed for pressure channel P1 14::39 Physician arrived 14::40 --------ALL STOP TIME OUT------ 14::40 Final Timeout: patient, procedure, and site verified with staff and physician. All members of the team are in agreement. 14:26:46 Right groin site verified by team. 14::50 Versed 1 mg I.V. was administered by Buffie Zhang RN; for sedation; 14::55 Fentanyl 50 mcg I.V. was administered by Romain Zhang RN; for sedation; 14:26:56 Physical assessment completed. ASA score P 2 - A patient with mild systemic disease as per Rodrigo Carreon MD. 14:26:59 Sedation plan: IV Moderate Sedation Medication:Versed, Fentanyl 14:27:03 Use device set Femoral Dx 14:27:04 ACIST Syringe (26878) opened to sterile field. 14:27:05 Bag Decanter (2002S) opened to sterile field. 14:27:05 Medline Cath Pack ([id number]) opened to sterile field. 14:27:06 DIAGNOSTIC WIRE .035 260cm J wire (681729) opened to sterile field. 14:27:07 ACIST Hand Control (69070) opened to sterile field. 14:27:07 ACIST Manifold (17866) opened to sterile field. 14:27:08 DIAGNOSTIC Multipack 5Fr catheter set (EV5458) opened to sterile field. 14:27:08 Tegaderm 4 x 4 (1626W) opened to sterile field. 14:27:09 PERCUTANEOUS ENTRY 19GA needle opened to sterile field. 14:27:14 SHEATH Prelude 5Fr 0.035 (IID-7Q-24-035) opened to sterile field. 14:27:23 Procedure started. 14:27:31 Local anesthetic to right femoral artery with Lidocaine 2% by Rodrigo Carreon MD.INITIAL ACCESS ONLY 14:27:50 A 5 Fr sheath was inserted into the Right Femoral artery 14:28:29 A MULTIPACK Pigtail 5 Fr catheter was advanced over the wire and used for Procedure. 14:28:32 LV angiography performed. 14:29:17 EF : 60 % 14:29:21 Catheter removed. 14:29:27 A MULTIPACK JL 4.0 5Fr catheter was advanced over the wire and used for Procedure. 14:30:03 Versed 1 mg I.V. was administered by Romain Zhang RN; for sedation; 14:30:08 Fentanyl 50 mcg I.V. was administered by Romain Zahng RN; for sedation; 14:30:43 LCA angiography performed. 14:30:50 Catheter removed. 14:31:22 A DIAGNOSTIC JL 3.5 5Fr catheter ([id number]) was advanced over the wire and used for Procedure. 14:31:49 LCA angiography performed. 14:31:50 Catheter removed. 14:31:59 A MULTIPACK 3DRC 5Fr catheter was advanced over the wire and used for Procedure. 14:32:04 RCA angiography performed. 14:32:44 Catheter removed. 14:34:10 GUIDE 6FR 3DRC catheter ([id number]) opened to sterile field. 14:34:16 CHOICE PT Extra Support 182cm wire ([id number]) opened to sterile field. 14:34:17 INFLATOR Merit BasixCompak (LF7857) opened to sterile field. 14:34:18 SHEATH 6Fr Prelude ([id number]) opened to sterile field. 14:34:33 Sheath upsized to a 6 Fr Short. 14:34:45 Heparin Bolus 4000 units I.V. was administered by Romain Zhang RN; for anticoagulation; verified with dr carreon 14:34:48 6 Fr 3DRC guide catheter was inserted over the wire 14:35:04 choice pt extra wire advanced. 14:35:07 Wire advanced across lesion. 14:36:19 Place stent Inflation Number: 1 A ABDON RX 4.0 x 18 stent ([id number]) was prepped and advanced across the Mid RCA. The stent was deployed at 17 GRACE for 0:16 (min:sec). 14:36:44 Wire removed. 14:36:45 Guide catheter removed. 14:36:56 EXOSEAL 6Fr (EX600) opened to sterile field. 14:38:39 Procedure ended.(Physican Out) 14:38:55 Fluoroscopy time 02.50 minutes. 14:39:01 Fluoroscopy dose: 528 mGy 14:39:01 Flurop Dose total: 528 14:39:14 Contrast amount:Isovue 300 72ml. 14:39:17 Insertion/operative site no bleeding no hematoma. 14:39:20 Post Procedure Pulses reassessed and unchanged 14:39:24 Post procedure rhythm: unchanged. 14:39:27 Estimated blood loss: 10 ml 14:39:29 Post procedure instruction explained to patient.Patient verbalizes understanding. 14:39:58 Procedure type changed to Cath procedure, Diagnostic procedure, LHC, LHC w/Coronaries, PCI procedure, Coronary Stent, Coronary Stent Initial 14:40:00 Procedure and supply charges have been captured, reviewed, submitted and are correct. 14:40:29 Procedure Complication : No complications 14:40:31 Vital chart was stopped 14:40:33 See physician's report for complete and final results. 14:40:35 Report given to Pre/Post Procedure Room. 14:40:39 Patient transfered to Pre/Post Procedure Room with Stretcher. 14:40:41 Procedure ended. 14:40:41 Full Disclosure recording stopped 14:40:45 End room use (Document Last) Intervention Summary Intervention Notes Time ActionType Lesion and Equipment Used Action# Pressure Duration Attributes 14:36:19 Place stent Mid RCA ABDON RX 4.0 x 1 17 00:16 18 stent ([id number]) Device Usage Item Name Manufacture Quantity Catalog Number Hospital Part Current Minimal Lot# / Charge Number Stock Stock Serial# Code ACIST Syringe Acist 1 59578 751605 048114 974770 20 (16808) Medical Systems Inc Bag Decanter Microtek 1 2001S 032206 17766 639989 5 (2001S) Medical Inc. Medline Cath Cardinal 1 [id number] 953942 60778 624586 5 Pack Health ([id number]) DIAGNOSTIC WIRE St Zane 1 816263 751409 437169 537743 30 .035 260cm J wire (213568) ACIST Hand Acist 1 26031 583047 965294 567458 5 Control (20960) Medical Systems Inc ACIST Manifold Acist 1 70153 471457 836574 144371 5 (44363) Medical Systems Inc DIAGNOSTIC Cardinal 1 [id number] 446811 08934 733880 30 Multipack 5Fr Health catheter set (RN9007) Tegaderm 4 x 4 3M 1 1626W 819947 930375 231997 5 (1626W) PERCUTANEOUS Cook Medical 1 F64070 612443 293423 5 ENTRY 19GA needle SHEATH Prelude Merit 1 [id number] 150138 589118 233179 5 5Fr 0.035 Medical (UMR-1R-27-035) MULTIPACK Cardinal 1 219266 5 Pigtail 5 Fr Health catheter MULTIPACK JL Cardinal 1 632029 5 4.0 5Fr Health catheter DIAGNOSTIC JL Cardinal 1 [id number] 184608 587686 258298 5 3.5 5Fr Health catheter ([id number]) MULTIPACK 3DRC Cardinal 1 365099 5 5Fr catheter Health GUIDE 6FR 3DRC Medtronic 1 [id number] 655117 597812 656345 1 catheter ([id number]) CHOICE PT Extra Bunkie 1 [id number] 702295 365485 653201 5 Support 182cm Scientific wire ([id number]) INFLATOR Merit Merit 1 ED6334 514993 118785 114256 15 BasixCompak Medical (HS1420) SHEATH 6Fr Merit 1 [id number] 461103 609683 253069 5 Prelude Medical ([id number]) ABDON RX 4.0 x Medtronic 1 [id number] 031093 9991990 188244 5 [id number] 18 stent ([id number]) EXOSEAL 6Fr Cardinal 1 EX600 348591 694505 414385 10 (EX600) Health Signature Audit [place] Stage Time Signature Unsigned Intra-Procedure 11/20/2017 Brigid Bonds 2:43:40 PM RT(R) Signatures Monitor : Brigid Bonds Signature : RT Date : Time : [place] [id number] [place] [address]
[2017-11-20 10:32] LABS: BASOPHILS 0.3 % (0-2); EOSINOPHILS 2.8 % (0-7); HEMATOCRIT 44.6 % (42.0-54.0); HEMOGLOBIN 15.5 g/dL (13.5-17.5); IMMATURE GRANULOCYTES 0.2 % (0-5); LYMPHOCYTES 21.2 % (15-50); MCH 31.4 pg (26.0-34.0); MCHC 34.8 g/dL (31.0-37.0); MCV 90.3 fL (80.0-100.0); MEAN PLATELET VOLUME 9.2 fL (7.4-10.4); MONOCYTES 12.6 % (2-11); NEUTROPHILS 62.9 % (40-80); PLATELET COUNT 241 10x3/uL (130-400); RBC 4.94 10x6/uL (4.20-6.10); RDW 13.2 % (11.5-14.5); WBC 6.2 10x3/uL (4.8-10.8)
[2017-11-20 10:34] VITALS: BP 146/68; BMI 23.7
[2017-11-20 10:44] LABS: ANION GAP 12.5 mmol/L (8-16); CALCIUM 9.3 mg/dL (8.5-10.1); CARBON DIOXIDE 26.5 mmol/L (21.0-32.0); CREATININE - SERUM 1.1 mg/dL (0.6-1.3)
== END 2017-11-20 18:30 | disposition home or self-care (01) ==
LOC: D.CATH 09:06
PROVIDERS: Internal Medicine Interventional Cardiology
DX: I25.119 Atherosclerotic heart disease of native coronary artery with unspecified angina pectoris (principal); Z95.5 Presence of coronary angioplasty implant and graft; I10 Essential (primary) hypertension; E78.5 Hyperlipidemia, unspecified; Z01.812 Encounter for preprocedural laboratory examination
CPT/HCPCS: C9600; 93458

== ENCOUNTER 2017-11-25 08:06 | Outpatient (CLI) | payer MEDICARE ==
[~2017-11-25] VITALS: Ht 180.3 cm; Wt 77.3 kg
--- NOTE | ~2017-11-25 | OP ---
PATIENT NAME: KAREN AYALA MEDICAL RECORD: [id number] :38 LOCATION:[facility] ADMISSION DATE: SURGEON: MADELINE BOOKER MD DATE OF OPERATION: 11/25/2017 PROCEDURES: 1. PTCA stent LAD. 2. Selective coronary angiography. INDICATION: Angina and coronary artery disease. PROCEDURE IN DETAIL: After informed consent was obtained and after a detailed description of the risks, benefits as well as alternative therapies, the patient elected to proceed with angiogram and angioplasty. The left femoral area was prepped and draped in normal sterile fashion. Left femoral artery was cannulated via modified Seldinger technique with placement of 6-Portuguese sheath. All catheters exchanged through this sheath. FINDINGS: The left anterior descending has a long area of greater than 70% stenosis throughout the proximal to mid foot vessel. This was addressed with a 3.0 x 18 and 2.5 x 26 both [place] stents. Result was 0% residual stenosis. OVERALL IMPRESSION: Successful percutaneous transluminal coronary angioplasty stent of the left anterior descending going from greater than 70% to 80% initial stenosis to 0% residual. TRANSINT:[id number] Voice Confirmation ID: [id number] DOCUMENT ID: [id number] MADELINE BOOKER MD at 1403 CC: [id number] DICTATION DATE: 11/25/17 1100 FRONT END LOADER DRIVER: 11/25/17 1304 DEP CLI 11/25/17 [facility] [address] [place] [address]
--- NOTE | ~2017-11-25 | HP ---
PATIENT: KAREN AYALA MEDICAL RECORD: [id number] ACCOUNT: [id number] LOCATION:[facility] : 38 ADMISSION DATE: 11/25/17 HISTORY AND PHYSICAL EXAMINATION ADMITTING DIAGNOSES: 1. Angina. 2. Coronary artery disease. 3. Recent percutaneous transluminal coronary angioplasty stent, RCA with concomitant disease, LAD. 4. Hypertension. 5. Hyperlipidemia. HISTORY OF PRESENT ILLNESS: Mr. Ayala presents with anginal symptomatology, found to have 2-vessel coronary artery disease, underwent successful PTCA stent of the RCA, now brought back for PTCA stent of the LAD. REVIEW OF SYSTEMS: The patient reports easy bruising but reports no swollen glands. The patient reports no fever, no night sweats, no significant weight gain, no significant weight loss. No significant exercise tolerance. The patient reports no dry eyes, no irritation, no vision change. Patient reports no difficulty hearing and no ear pain. Patient reports no frequent nose bleeds or nose and sinus problems. Patient reports on arm pain on exertion. No shortness of breath while lying down. No history of heart murmur. Patient reports no cough, no wheezing or coughing up blood. Patient reports no abdominal pain, no vomiting. Normal appetite. No diarrhea and not vomiting blood. No nausea and no constipation. Patient reports no incontinence. No difficulty urinating. No hematuria. No increased frequency. Patient reports no muscle aches. No weakness, no arthralgias, no back pain. No swelling of the extremities. Patient reports no abnormal mole, no jaundice, no rashes. Reports no loss of consciousness. No weakness and no numbness. No seizures, dizziness, or headaches. The patient reports no depression, no sleep disturbance, feeling safe in a relationship and no alcohol abuse. Patient reports on fatigue. Reports no runny nose or sinus pressure. No itching, no hives, and no frequent sneezing. PHYSICAL EXAMINATION: GENERAL APPEARANCE: Well-nourished, well-developed, appears stated age. Level of distress, comfortable. PSYCHIATRIC: Mental status, alert, normal affect. Orientation, oriented to time, place and person. EYES: Lids and conjunctiva, noninjected. No discharge, no pallor. ENT: Lips, teeth, gums, normal dentition. Oropharynx, no cyanosis, no pallor. NECK: Carotid arteries, bilateral normal upstroke, no bruits, no thrills. JUGULAR VEINS: No jugular venous pressure or distention. CERVICAL LYMPH NODES: Nontender, nonenlarged. THYROID: Not enlarged. Nontender. No nodules. LUNGS: Respiratory effort, unlabored. CHEST: Normal curvature. No thoracic deformity. No chest wall tenderness. Percussion, resonant. Auscultation, clear. No wheezes, no rales, no rhonchi. CARDIOVASCULAR: Precordial exam, nondisplaced. No heaves or pericardial thrills. Rate and rhythm, regular. Heart sounds, normal S1, normal S2. No S3, no gallop, no rub. Systolic murmur, not heard. Diastolic murmur, not heard. EXTREMITIES: No cyanosis, no edema. Peripheral pulses, full and equal in all extremities, except as noted. No bruits appreciated. HISTORY AND PHYSICAL [id number] KAREN AYALA ABDOMEN: Soft, nondistended. Normal aorta. No bruit. Nontender. No masses. Liver, nontender, no hepatomegaly. Spleen, nontender, no splenomegaly. MUSCULOSKELETAL: No joint tenderness. No joint swelling. No erythema. NEUROLOGICAL: Normal gait, normal strength, normal tone. SKIN: Warm and dry. OVERALL IMPRESSION: Anginal symptomatology with significant disease of the left anterior descending. We will proceed with percutaneous transluminal coronary angioplasty stent of the LAD. TRANSINT:[id number] Voice Confirmation ID: [id number] DOCUMENT ID: [id number] MADELINE BOOKER MD at 1403 CC: [id number] DICTATION DATE: 11/25/17 1039 NURSE EXAMINER: 11/25/17 1054 DEP CLI 11/25/17 [place] [id number] [place] [id number]
--- NOTE | ~2017-11-25 | HEMODYNAMI ---
PATIENT:KAREN AYALA MEDICAL RECORD: [id number] : 38 LOCATION:[facility] ADMISSION DATE: 11/25/17 Generatedon:11/25/201711:03 Patient name: KAREN AYALA Patient #: [id number] SSN: [id number] : 1940 Date of study: 11/25/2017 Page: Of Hemodynamic Procedure Report Patient Data Patient Demographics Procedure consent was obtained First Name: KAREN Gender: Male Last Name: LUCY : 1940 [facility] Initial: E Age: 77 year(s) Patient #: [id number] Race: SSN: [id number] Additional ID: [id number] Contact details Address: [place] [address] State: [place] City: [place] Zip code: [address] Past Medical History Allergies: No known allergies Admission Admission Data Admission Date: 11/25/2017 Admission Time: 8:06 Arrival Date: 11/25/2017 Arrival Time: 0:00 Admit Source: Other Insurance Payor: Medicare Height (in.): 70.87 BSA: 1.96 (m2) Height (cm.): 180 BMI: 23.77 (kg/m2) Weight (lbs.): 169.76 Weight (kg.): 77 Lab Results Lab Result Date: 11/25/2017 Lab Result Time: 0:00 Biochemistry Name Units Result Min Max BUN mg/dl 21 --(----)-* 7 18 Creatinine mg/dl 1.3 --(---*)-- 0.6 1.3 CBC Name Units Result Min Max Hemoglobin g/dl 16.2 --(--*-)-- 13.5 17.5 Procedure Procedure Types Cath Procedure PCI Procedure Coronary Stent Coronary Stent Initial Procedure Description Procedure Date Procedure Date: 11/25/2017 Procedure Start Time: 10:47 Procedure End Time: 10:57 Procedure Staff Name Function Rodrigo Carreon MD Performing Physician Pretty Calles RT Monitor Brigid Bonds RT Scrub Romain Zhang RN Nurse Procedure Data Cath Procedure Fluoroscopy Diagnostic fluoroscopy Total fluoroscopy Time: 3.2 time: 3.2 min min Diagnostic fluoroscopy Total fluoroscopy dose: 642 dose: 642 mGy mGy Contrast Material Contrast Material Type Amount (ml) Isovue 300 61 Entry Location Entry Primary Successful Side Size Upsize Upsize Entry Closure Succes sful Closure Location (Fr) 1 (Fr) 2 (Fr) Remarks Device Remarks Femoral Left 6 Fr Exoseal artery Short Estimated blood loss: 5 ml Procedure Complications No complications Procedure Medications Medication Administration Route Dosage Oxygen NC 2 l/min Lidocaine 2% added to field 20 Heparin Flush Bag added to field 2 bags (1000units/500ml NS) 0.9% NaCl I.V. 100 ml/hr Versed I.V. 1 mg Fentanyl I.V. 50 mcg Versed I.V. 1 mg Fentanyl I.V. 50 mcg Heparin Bolus I.V. 4000 units Hemodynamics Rest BSA: 1.96 (m2) HGB: 16.2 (g/dl) O2 Consumption: Estimated: 210.92 (ml/min) O2 Co nsumption indexed: Estimated:107.61 (ml/min/m) Heart Rate: 52 (bpm) Snapshots Pre Cath Intra NCS Post Cath Vital Signs Time Heart Resp SPO2 etCO2 NIBP (mmHg) Rhythm Pain Sedation Rate (ipm) (%) (mmHg) Status Level (bpm) 10:41:28 51 18 98 0 135/64(116) NSR 0 (11) 10(A) , No pain 10:45:52 50 13 96 30.6 139/60(107) NSR 0 (11) 10(A) , No pain 10:50:13 51 15 96 0 137/59(107) NSR 0 (11) 9(A) , No pain 10:54:31 49 14 95 0 132/64(103) NSR 0 (11) 9(A) , No pain 11:00:15 50 24 95 0 117/52(88) NSR 0 (11) 10(A) , No pain Medications Time Medication Route Dose Verified Delivered Reason Notes Effectiveness by by 10:40:43 Oxygen NC 2 Rodrigo Hoyos used for l/min 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 100 Rodrigo Buffie Per physician ml/hr Velma Zhang RN 10:46:11 Versed I.V. 1 mg Rodrigo Buffie for sedation Velma Zhang RN 10:46:17 Fentanyl I.V. 50 Rodrigo Buffie for sedation mcg Velma Zhang RN 10:48:26 Heparin Bolus I.V. 4000 Rodrigo Buffie for verifi ed units Velma Zhang RN anticoagulation with dr carreon 10:49:54 Versed I.V. 1 mg Rodrigo Buffie for sedation Velma Zhang RN 10:49:59 Fentanyl I.V. 50 Rodrigo Buffie for sedation mcg Velma Zhang RN Procedure Log Time Note 10:27:00 Pretty Calles RT(R) sent for patient. Start room use. 10:27:00 Time tracking: Regular hours (M-F 7:00 - 5:00) 10:27:04 Plan of Care:Hemodynamics will remain stable., Cardiac rhythm will remain stable., Comfort level will be maintained., Respiratory function will remain adequate., Patient/ family verbilizes understanding of procedure., Procedure tolerated without complication., Recovers from procedure without complications.. 10:27:53 Diagnostic Cath Status : Elective 10:28:02 Admit Source: Other 10:28:04 Arrival Date: 11/25/2017 12:00:00 AM 10:28:11 Insurance Payor : Medicare 10:31:10 Lab Result : Hemoglobin 16.2 g/dl 10:31:10 Lab Result : Creatinine 1.3 mg/dl 10:31:10 Lab Result : BUN 21 mg/dl 10:31:19 Patient Height : 70.87 inches 10:31:24 Patient Weight : 169.76 lbs 10:32:15 Patient received from Pre/Post Procedure Room to CCL 2 Alert and oriented. Tansferred to table in Supine position. 10:32:16 Warm blankets applied, and michelle hugger turned on for patient comfort. 10:32:16 Correct patient and procedure confirmed by team. 10:32:18 Signed procedure consent form obtained from patient. 10:32:19 ECG and BP/O2 sat monitors applied to patient. 10:40:28 Vital chart was started 10:40:43 Oxygen 2 l/min NC was administered by Romain Zhang RN; used for procedure; 10:40:50 Lidocaine 2% 20ml vial added to field was administered by Rodrigo Carreon MD; for local anesthetic; 10:41:04 Heparin Flush Bag (1000units/500ml NS) 2 bags added to field was administered by Romain Zhang RN; used for procedure; 10:41:43 0.9% NaCl 100 ml/hr I.V. was administered by Romain Zhang RN; Per physician; 10:43:00 Baseline sample Acquired. 10:43:04 Rhythm: sinus rhythm 10:43:05 Full Disclosure recording started 10:43:09 H&P Date Dictated: 11/25/2017 Within 30 days and on chart.. 10:43:10 Pre-procedure instructions explained to patient. 10:43:10 Pre-op teaching completed and patient verbalized understanding. 10:43:12 Family in patients room. 10:44:08 Patient NPO since Midnight. 10:44:10 Is the patient allergic to Iodine/contrast media? No. 10:44:11 Was the patient premedicated? No 10:44:11 Is patient on blood thinner?Yes 10:44:14 ACC The patient was administered the following blood thiners within the last 24 hours: ACCPlavix 10:44:16 Patient diabetic? No. 10:44:18 Previous problem with sedation/anesthesia? No ? 10:44:19 Snore? Yes 10:44:20 Sleep apnea? No 10:44:21 Deviated septum? No 10:44:21 Opens mouth fully? Yes 10:44:22 Sticks out tongue? Yes 10:44:24 Airway obstruction? No ? 10:44:27 Dentures? No ? 10:44:30 Pre procedure: right dorsailis pedis pulse 1+ Palpable, but thready & weak; easily obliterated 10:44:31 Pre procedure: left dorsailis pedis pulse 1+ Palpable, but thready & weak; easily obliterated 10:44:33 Patient pain scale 0/10 ?. 10:44:38 IV patent on arrival in left forearm with 0.9% NaCl at [facility]. 10:44:40 Lab results completed and on chart. 10:44:45 Left groin area was prepped with chlora-prep and draped in sterile fashion 10:44:45 Alarms reviewed by R. N. 10:44:46 Sharps counted by scrub and verified by R.N. 10:44:47 Physician arrived 10:44:47 --------ALL STOP TIME OUT------ 10:44:48 Final Timeout: patient, procedure, and site verified with staff and physician. All members of the team are in agreement. 10:44:50 Left groin site verified by team. 10:44:52 Physical assessment completed. ASA score P 2 - A patient with mild systemic disease as per Rodrigo Carreon MD. 10:44:56 Sedation plan: IV Moderate Sedation Medication:Versed, Fentanyl 10:44:58 Zero performed for pressure channel P1 10:46:11 Versed 1 mg I.V. was administered by Romain Zhang RN; for sedation; 10:46:11 Use device set Femoral Dx 10:46:13 ACIST Syringe (87423) opened to sterile field. 10:46:14 Bag Decanter (2002S) opened to sterile field. 10:46:14 Medline Cath Pack ([id number]) opened to sterile field. 10:46:15 DIAGNOSTIC WIRE .035 260cm J wire (969964) opened to sterile field. 10:46:16 ACIST Hand Control (23380) opened to sterile field. 10:46:16 ACIST Manifold (73741) opened to sterile field. 10:46:17 Fentanyl 50 mcg I.V. was administered by Romain Zhang RN; for sedation; 10:46:18 Tegaderm 4 x 4 (1626W) opened to sterile field. 10:46:30 SHEATH 6Fr Prelude ([id number]) opened to sterile field. 10:46:41 CHOICE PT Extra Support 182cm wire ([id number]) opened to sterile field. 10:46:42 INFLATOR Merit BasixCompak (PP5333) opened to sterile field. 10:46:54 GUIDE 6FR EBU 3.0 SH catheter ([id number]) opened to sterile field. 10:46:57 Procedure started. 10:47:02 Local anesthetic to left femerol artery with Lidocaine 2% by Rodrigo Carreon MD.INITIAL ACCESS ONLY 10:47:11 A 6 Fr Short sheath was inserted into the Left Femoral artery 10:47:49 6 Fr ebu 3 sh guide catheter was inserted over the wire 10:48:26 Heparin Bolus 4000 units I.V. was administered by Romain Zhang RN; for anticoagulation; verified with dr carreon 10:48:29 choice pt wire advanced. 10:49:34 Wire advanced across lesion. 10:49:54 Versed 1 mg I.V. was administered by Romain Zhang RN; for sedation; 10:49:59 Fentanyl 50 mcg I.V. was administered by Romain Zhang RN; for sedation; 10:51:14 Place stent Inflation Number: 1 A ABDON RX 2.5 x 26 stent ([id number]) was prepped and advanced across the Mid LAD. The stent was deployed at 21 GRACE for 0:10 (min:sec). 10:52:09 Inflation number: 2 The stent balloon was then re-inflated across the Mid LAD to 3 GRACE for 0:10 (min:sec). 10:52:40 Stent catheter was removed intact over wire. 10:54:03 Place stent Inflation Number: 1 A ABDON RX 3.0 x 18 stent ([id number]) was prepped and advanced across the Prox LAD. The stent was deployed at 13 GRACE for 0:10 (min:sec). 10:54:21 Stent catheter was removed intact over wire. 10:54:21 Wire removed. 10:54:22 Guide catheter removed. 10:55:52 EXOSEAL 6Fr (EX600) opened to sterile field. 10:56:05 Sheath removed intact; hemostasis achieved with Exoseal to the Left Femoral artery. 10:56:09 Procedure ended.(Physican Out) 10:56:27 Fluoroscopy time 03.20 minutes. 10:56:35 Flurop Dose total: 642 10:56:35 Fluoroscopy dose: 642 mGy 10:56:39 Contrast amount:Isovue 300 61ml. 10:56:41 Sharps counted by scrub and verified by R.N. 10:56:42 Insertion/operative site no bleeding no hematoma. 10:56:46 Post-op/insertion site Left Femoral artery dressed using a 4 x 4 and Tegaderm. 10:56:51 Post left femerol artery:stable 10:56:52 Post Procedure Pulses reassessed and unchanged 10:56:55 Post procedure rhythm: unchanged. 10:56:57 Estimated blood loss: 5 ml 10:56:58 Post procedure instruction explained to patient.Patient verbalizes understanding. 10:56:59 Patient needs reinforcement of post procedure teaching. 10:57:06 Procedure type changed to Cath procedure, PCI procedure, Coronary Stent, Coronary Stent Initial 10:57:07 Procedure and supply charges have been captured, reviewed, submitted and are correct. 10:57:12 Procedure Complication : No complications 10:57:14 Vital chart was stopped 10:57:15 See physician's report for complete and final results. 10:57:20 Report given to Pre/Post Procedure Room. 10:57:22 Patient transfered to Pre/Post Procedure Room with Stretcher. 10:57:24 Procedure ended. 10:57:24 Full Disclosure recording stopped 10:57:31 ACC-PCI Only Patient was given prescriptions, or instructed by Rodrigo Carreon MD to start/continue the following medications upon discharge: Plavix 10:57:33 End room use (Document Last) Intervention Summary Intervention Notes Time ActionType Lesion and Equipment Used Action# Pressure Duration Attributes 10:51:14 Place stent Mid LAD ABDON RX 2.5 x 1 21 00:10 26 stent ([id number]) 10:52:09 Reinflate Mid LAD ABDON RX 2.5 x 2 3 00:10 stent 26 stent balloon ([id number]) 10:54:03 Place stent Prox LAD ABDON RX 3.0 x 1 13 00:10 18 stent ([id number]) Device Usage Item Name Manufacture Quantity Catalog Number Hospital Part Current M inimal Lot# / Charge Number Stock Stock Serial# Code ACIST Syringe Acist 1 43254 [id number] 941085 172743 2 0 (94788) Medical Systems Inc Bag Decanter Microtek 1 837020 60221 246600 5 () Medical Inc. Medline Cath Cardinal 1 [id number] 913712 [address] [facility] ([id number]) DIAGNOSTIC St Zane 1 929856 375186 138671 027163 3 0 WIRE .035 260cm J wire (526955) ACIST Hand Acist 1 77984 550333 318430 947982 5 Control Medical (95788) Systems Inc ACIST Manifold Acist 1 41382 384066 310455 481251 5 (75121) Medical Systems Inc Tegaderm 4 x 4 3M 1 1626W 729292 138393 715214 5 (1626W) SHEATH 6Fr Merit 1 [id number] 184703 463543 948165 5 Prelude Medical ([id number]) CHOICE PT [place] 1 [id number] 264570 455535 713939 5 Extra Support Scientific 182cm wire ([id number]) INFLATOR Merit Merit 1 [id number] 176072 383773 244068 1 5 [facility] (JG1748) GUIDE 6FR EBU Medtronic 1 [id number] 551227 01430 798010 0 3.0 SH catheter ([id number]) ABDON RX 2.5 x Medtronic 1 [id number] 561641 1615045 046329 5 [id number] 26 stent ([id number]) ABDON RX 3.0 x Medtronic 1 [id number] 293818 5318485 192087 5 [id number] 18 stent ([id number]) EXOSEAL 6Fr Cardinal 1 EX600 867083 223978 104752 1 0 (EX600) Health Signature Audit [place] [facility] Time Signature Unsigned Intra-Procedure 11/25/2017 Pretty Calles 11:03:41 AM RT(R) Signatures Monitor : Pretty Calles RT Signature : Date : Time : [facility] [address] [place] [address]
[2017-11-25 08:50] VITALS: BP 171/76; Ht 180.3 cm; Wt 77.3 kg
[2017-11-25 09:00] LABS: BASOPHILS 0.4 % (0-2); EOSINOPHILS 3.6 % (0-7); HEMATOCRIT 45.8 % (42.0-54.0); HEMOGLOBIN 16.2 g/dL (13.5-17.5); IMMATURE GRANULOCYTES 0.1 % (0-5); LYMPHOCYTES 22.2 % (15-50); MCH 31.8 pg (26.0-34.0); MCHC 35.4 g/dL (31.0-37.0); MCV 89.8 fL (80.0-100.0); MEAN PLATELET VOLUME 9.4 fL (7.4-10.4); MONOCYTES 9.7 % (2-11); PLATELET COUNT 262 10x3/uL (130-400); RDW 12.8 % (11.5-14.5); WBC 6.7 10x3/uL (4.8-10.8)
[2017-11-25 09:11] LABS: ANION GAP 11.8 mmol/L (8-16); CALCIUM 9.6 mg/dL (8.5-10.1); CARBON DIOXIDE 28.4 mmol/L (21.0-32.0); CREATININE - SERUM 1.3 mg/dL (0.6-1.3); POTASSIUM - SERUM 4.2 mmol/L (3.5-5.1)
== END 2017-11-25 15:17 | disposition home or self-care (01) ==
LOC: D.CATH 08:06
PROVIDERS: Internal Medicine Interventional Cardiology
DX: I25.119 Atherosclerotic heart disease of native coronary artery with unspecified angina pectoris (principal); Z95.5 Presence of coronary angioplasty implant and graft; E78.5 Hyperlipidemia, unspecified; I10 Essential (primary) hypertension; Z01.812 Encounter for preprocedural laboratory examination

== ENCOUNTER 2018-02-19 07:43 | Outpatient (CLI) | payer MEDICARE ==
[~2018-02-19] VITALS: Ht 180.3 cm; Wt 77.3 kg
--- NOTE | ~2018-02-19 | HEMODYNAMI ---
PATIENT:KAREN AYALA MEDICAL RECORD: [id number] : 38 LOCATION:[facility] ADMISSION DATE: 02/19/18 Generatedon:02/19/201810:34 Patient name: KAREN AYALA Patient #: [id number] SSN: [id number] : 1940 Date of study: 02/19/2018 Page: Of Hemodynamic Procedure Report Patient Data Patient Demographics Procedure consent was obtained First Name: KAREN Gender: Male Last Name: LUCY : 1940 [facility] Initial: E Age: 77 year(s) Patient #: [id number] Race: SSN: [id number] Additional ID: [id number] Contact details Address: [place] [address] State: [place] City: [place] Zip code: [address] Past Medical History Allergies: No known allergies Admission Admission Data Admission Date: 02/19/2018 Admission Time: 7:43 Procedure Procedure Types Cath Procedure Diagnostic Procedure LHC LH w/Coronaries Sedation Charges Moderate Sedation up to 15 minutes PCI Procedure Coronary Stent Coronary Stent Initial Procedure Description Procedure Date Procedure Date: 02/19/2018 Procedure Start Time: 10:18 Procedure End Time: 10:32 Procedure Staff Name Function Rodrigo Carreon MD Performing Physician Pretty Calles RT Monitor Brigid Bonds RT Scrub Romain Zhang RN Nurse Dandre Shaffer RN Nurse Procedure Data Cath Procedure Fluoroscopy Diagnostic fluoroscopy Total fluoroscopy Time: 3.1 time: 3.1 min min Diagnostic fluoroscopy Total fluoroscopy dose: 896 dose: 896 mGy mGy Contrast Material Contrast Material Type Amount (ml) Isovue 300 112 Entry Location Entry Primary Successful Side Size Upsize Upsize Entry Closure Succes sful Closure Location (Fr) 1 (Fr) 2 (Fr) Remarks Device Remarks Femoral Right 5 Fr 6 Fr Exoseal artery Short Estimated blood loss: 5 ml Diagnostic catheters Device Type Used For End Catheter Placement MULTIPACK Pigtail 5 Fr LV Angiography catheter MULTIPACK JL 4.0 5Fr Left Coronary catheter Angiography DIAGNOSTIC JL 3.5 5Fr Left Coronary catheter ([id number]) Angiography MULTIPACK 3DRC 5Fr Right Coronary catheter Angiography Procedure Complications No complications Procedure Medications Medication Administration Route Dosage Oxygen etCO2 Nasal cannula 2 l/min Heparin Flush Bag added to field 2 bags (1000units/500ml NS) 0.9% NaCl I.V. 100 ml/hr Fentanyl I.V. 50 mcg Versed I.V. 1 mg Fentanyl I.V. 50 mcg Versed I.V. 1 mg Heparin Bolus I.V. 4000 units Hemodynamics Rest Heart Rate: 61 (bpm) Pressure Samples Time Site Value (mmHg) Purpose Heart Use Rate(bpm) 10:20 LV 129/50,52 Snapshot 57 Snapshots Pre Cath Intra NCS Post Cath Vital Signs Time Heart Resp SPO2 etCO2 NIBP (mmHg) Rhythm Pain Sedation Rate (ipm) (%) (mmHg) Status Level (bpm) 10:02:57 60 16 96 0 166/74(136) NSR 0 (11) 10(A) , No pain 10:07:21 60 16 95 0 161/76(138) NSR 0 (11) 10(A) , No pain 10:11:35 61 17 94 36.8 162/74(137) NSR 0 (11) 10(A) , No pain 10:15:59 55 17 97 0 136/66(107) NSR 0 (11) 9(A) , No pain 10:20:15 60 16 96 0 143/63(124) NSR 0 (11) 9(A) , No pain 10:24:27 56 16 93 0 144/81(122) NSR 0 (11) 9(A) , No pain 10:28:46 61 17 95 45 154/67(135) NSR 0 (11) 9(A) , No pain 10:33:10 64 16 93 36.7 130/68(107) NSR 0 (11) 9(A) , No pain Medications Time Medication Route Dose Verified Delivered Reason Notes Effectiveness by by 10:10:39 Oxygen etCO2 2 Rodrigo Amos Per physician Nasal l/min Velma Shaffer RN cannula 10:10:47 Heparin Flush added 2 Rodrigo Amos used for Bag to bags Velma Shaffer food preparer (1000units/500ml field NS) 10:10:55 0.9% NaCl I.V. 100 Rodrigo Amos Per physician ml/hr Velma Shaffer RN 10:13:15 Fentanyl I.V. 50 Rodrigo Amos for sedation mcg Velma Shaffer RN 10:13:21 Versed I.V. 1 mg Rodrigo Amos for sedation Velma Shaffer RN 10:18:54 Fentanyl I.V. 50 Rodrigo Amos for sedation mcg Velma Shaffer RN 10:18:57 Versed I.V. 1 mg Rodrgio Amos for sedation Velma Shaffer RN 10:27:10 Heparin Bolus I.V. 4000 Rodrigo Amos for units Velma Shaffer RN anticoagulation Procedure Log Time Note 9:41:31 Diagnostic Cath Status : Elective 9:41:54 Romain Zhang RN sent for patient. Start room use. 9:41:55 Time tracking: Regular hours (M-F 7:00 - 5:00) 9:42:00 Plan of Care:Hemodynamics will remain stable., Cardiac rhythm will remain stable., Comfort level will be maintained., Respiratory function will remain adequate., Patient/ family verbilizes understanding of procedure., Procedure tolerated without complication., Recovers from procedure without complications.. 9:53:47 Patient received from Pre/Post Procedure Room to [facility] 2 Alert and oriented. Tansferred to table in Supine position. 9:53:49 Warm blankets applied, and michelle hugger turned on for patient comfort. 9:53:49 Correct patient and procedure confirmed by team. 9:53:51 Signed procedure consent form obtained from patient. 9:53:53 ECG and BP/O2 sat monitors applied to patient. 10:01:41 Vital chart was started 10:01:42 Baseline sample Acquired. 10:01:46 Rhythm: sinus rhythm 10:01:47 Full Disclosure recording started 10:01:51 H&P Date Dictated: 02/19/2018 Within 30 days and on chart., H&P Addendum completed by physician on day of procedure. (MUST COMPLETE FOR ALL OUTPATIENTS). 10:01:53 Pre-procedure instructions explained to patient. 10:01:53 Pre-op teaching completed and patient verbalized understanding. 10:01:54 Family in waiting room. 10:01:57 Patient NPO since Midnight. 10:01:58 Is the patient allergic to Iodine/contrast media? No. 10:01:59 Was the patient premedicated? No 10:02:05 Is patient on blood thinner?Yes 10:02:08 ACC The patient was administered the following blood thiners within the last 24 hours: ACCPlavix 10:02:14 Patient diabetic? No. 10:02:17 Previous problem with sedation/anesthesia? No ? 10:02:21 Snore? Yes 10:02:23 Sleep apnea? No 10:02:24 Deviated septum? No 10:02:25 Opens mouth fully? Yes 10:02:26 Sticks out tongue? Yes 10:02:33 Airway obstruction? No ? 10:02:38 Dentures? Yes in tight 10:04:17 Pre procedure: right dorsailis pedis pulse 1+ Palpable, but thready & weak; easily obliterated 10:04:19 Pre procedure: left dorsailis pedis pulse 1+ Palpable, but thready & weak; easily obliterated 10:04:22 Patient pain scale 0/10 ?. 10:04:27 IV patent on arrival in left forearm with 0.9% NaCl at [facility]. 10:04:31 Lab results completed and on chart. 10:04:36 Right groin area was prepped with chlora-prep and draped in sterile fashion 10:04:37 Alarms reviewed by R. N. 10:04:37 Sharps counted by scrub and verified by R.N. 10:10:39 Oxygen 2 l/min etCO2 Nasal cannula was administered by Dandre Shaffer RN; Per physician; 10:10:47 Heparin Flush Bag (1000units/500ml NS) 2 bags added to field was administered by Dandre Shaffer RN; used for procedure; 10:10:55 0.9% NaCl 100 ml/hr I.V. was administered by Dandre Shaffer RN; Per physician; 10:11:15 Zero performed for pressure channel P1 10:12:12 Physician arrived 10:12:12 --------ALL STOP TIME OUT------ 10:12:13 Final Timeout: patient, procedure, and site verified with staff and physician. All members of the team are in agreement. 10:12:16 Right groin site verified by team. 10:12:19 Physical assessment completed. ASA score P 2 - A patient with mild systemic disease as per Rodrigo Carreon MD. 10:12:25 Sedation plan: IV Moderate Sedation Medication:Versed, Fentanyl 10:13:15 Fentanyl 50 mcg I.V. was administered by Dandre Shaffer RN; for sedation; 10:13:21 Versed 1 mg I.V. was administered by Dandre Shaffer RN; for sedation; 10:14:41 Use device set Femoral Dx 10:14:42 ACIST Syringe (94699) opened to sterile field. 10:14:42 Bag Decanter (2002S) opened to sterile field. 10:14:43 Medline Cath Pack ([id number]) opened to sterile field. 10:14:44 DIAGNOSTIC WIRE .035 260cm J wire (294892) opened to sterile field. 10:14:45 ACIST Hand Control (70714) opened to sterile field. 10:14:45 ACIST Manifold (45364) opened to sterile field. 10:14:46 DIAGNOSTIC Multipack 5Fr catheter set (UY0737) opened to sterile field. 10:14:46 Tegaderm 4 x 4 (1626W) opened to sterile field. 10:14:48 SHEATH Prelude 5Fr 0.035 (QYL-2Z-10-035) opened to sterile field. 10:18:26 Procedure started. 10:18:33 Local anesthetic to right femoral artery with Lidocaine 2% by Rodrigo Carreon MD.INITIAL ACCESS ONLY 10:18:44 A 5 Fr sheath was inserted into the Right Femoral artery 10:18:54 Fentanyl 50 mcg I.V. was administered by Dandre Shaffer RN; for sedation; 10:18:57 Versed 1 mg I.V. was administered by Dandre Shaffer RN; for sedation; 10:19:45 A MULTIPACK Pigtail 5 Fr catheter was advanced over the wire and used for LV Angiography. 10:20:06 LV hemodynamics recorded. 10:20:07 LV gram done using ZAMBRANO 10:20:09 Injector settings: Ml/sec: 5, Volume: 15, 10:20:16 EF : 60 % 10:20:26 Catheter removed. 10:20:30 A MULTIPACK JL 4.0 5Fr catheter was advanced over the wire and used for Left Coronary Angiography. 10:21:04 LCA angiography performed. 10:21:07 Injector settings: Ml/sec: 3, Volume: 6, 10:21:46 Catheter removed. 10:22:49 A DIAGNOSTIC JL 3.5 5Fr catheter ([id number]) was advanced over the wire and used for Left Coronary Angiography. 10:23:02 LCA angiography performed. 10:23:05 Injector settings: Ml/sec: 3, Volume: 6, 10:23:13 Catheter removed. 10:23:18 A MULTIPACK 3DRC 5Fr catheter was advanced over the wire and used for Right Coronary Angiography. 10:23:50 RCA angiography performed. 10:23:53 Injector settings: Ml/sec: 3, Volume: 6, 10:25:03 SHEATH Prelude 6Fr 0.035 (MKY-3C-78-035) opened to sterile field. 10:25:04 INFLATOR Merit BasixCompak (ZJ8446) opened to sterile field. 10:25:05 CHOICE PT Extra Support 182cm wire ([id number]) opened to sterile field. 10:26:03 GUIDE 6FR AR 2.0 catheter ([id number]) opened to sterile field. 10:27:10 Heparin Bolus 4000 units I.V. was administered by Dandre Shaffer RN; for anticoagulation; 10:27:19 Catheter removed. 10:27:20 Proceeding to intervention. 10:27:28 Sheath upsized to a 6 Fr Short. 10:27:34 6 Fr ar 2 guide catheter was inserted over the wire 10:27:41 choice pt wire advanced. 10:29:35 Place stent Inflation Number: 1 A ABDON RX 2.0 x 18 stent ([id number]) was prepped and advanced across the R PDA. The stent was deployed at 15 GRACE for 0:10 (min:sec). 10:30:05 Stent catheter was removed intact over wire. 10:30:06 Wire removed. 10:30:07 Guide catheter removed. 10:30:15 EXOSEAL 6Fr (EX600) opened to sterile field. 10:30:26 Sheath removed intact; hemostasis achieved with Exoseal to the Right Femoral artery. 10:30:28 Procedure ended.(Physican Out) 10:31:11 Fluoroscopy time 03.10 minutes. 10:31:17 Flurop Dose total: 896 10:31:17 Fluoroscopy dose: 896 mGy 10:31:22 Contrast amount:Isovue 300 112ml. 10:31:23 Sharps counted by scrub and verified by R.N. 10:31:26 Insertion/operative site no bleeding no hematoma. 10:31:30 Post-op/insertion site Right Femoral artery dressed using a 4 x 4 and Tegaderm. 10:31:33 Post right femoral artery:stable 10:31:34 Post Procedure Pulses reassessed and unchanged 10:31:36 Post procedure rhythm: unchanged. 10:31:39 Estimated blood loss: 5 ml 10:31:41 Post procedure instruction explained to patient.Patient verbalizes understanding. 10:31:41 Patient needs reinforcement of post procedure teaching. 10:32:02 Procedure type changed to Cath procedure, Diagnostic procedure, LHC, LHC w/Coronaries, Sedation Charges, Moderate Sedation up to 15 minutes, PCI procedure, Coronary Stent, Coronary Stent Initial 10:32:03 Procedure and supply charges have been captured, reviewed, submitted and are correct. 10:32:07 Procedure Complication : No complications 10:32:09 Vital chart was stopped 10:32:09 See physician's report for complete and final results. 10:32:11 Report given to Pre/Post Procedure Room. 10:32:15 Patient transfered to Pre/Post Procedure Room with Stretcher. 10:32:17 Procedure ended. 10:32:17 Full Disclosure recording stopped 10:32:26 ACC-PCI Only Patient was given prescriptions, or instructed by Rodrigo Carreon MD to start/continue the following medications upon discharge: Plavix 10:32:28 End room use (Document Last) Intervention Summary Intervention Notes Time ActionType Lesion and Equipment Used Action# Pressure Duration Attributes 10:29:35 Place stent R PDA ABDON RX 2.0 x 1 15 00:10 18 stent ([id number]) Device Usage Item Name Manufacture Quantity Catalog Number Hospital Part Current Minimal Lot# / Charge Number Stock Stock Serial# Code ACIST Syringe Acist 1 49766 581922 297929 043489 20 (85555) Medical Systems Inc Bag Decanter Microtek 1 024908 67760 337815 5 () Medical Inc. Medline Cath Cardinal 1 [id number] 101909 89166 375307 5 Pack Health ([id number]) DIAGNOSTIC WIRE St Zane 1 047367 517865 642989 615542 30 .035 260cm J wire (560111) ACIST Hand Acist 1 79855 970244 590983 536627 5 Control (21360) Medical Systems Inc ACIST Manifold Acist 1 96524 555090 104942 132103 5 (44978) Medical Systems Inc DIAGNOSTIC Cardinal 1 HT5962 780781 48005 230681 30 Multipack 5Fr Health catheter set ([id number]) Tegaderm 4 x 4 3M 1 1626W 194306 187187 142883 5 (1626W) SHEATH Prelude Merit 1 JGV-1G-46-035 338453 475297 051498 5 5Fr 0.035 Medical (TLW-9U-92-035) MULTIPACK Cardinal 1 800879 5 Pigtail 5 Fr Health catheter MULTIPACK JL Cardinal 1 341857 5 4.0 5Fr Health catheter DIAGNOSTIC JL Cardinal 1 [id number] 819933 272424 679286 5 3.5 5Fr Health catheter ([id number]) MULTIPACK 3DRC Cardinal 1 191002 5 5Fr catheter Health SHEATH Prelude Merit 1 [id number]-7O-[id number] 242947 5164039 814151 5 6Fr 0.035 Medical (VES-6W-98-035) INFLATOR Merit Merit 1 [id number] 753776 373621 384942 15 [facility] (VY9918) CHOICE PT Extra [place] 1 [id number] 699005 804538 017020 5 Support 182cm Scientific wire ([id number]) GUIDE 6FR AR Medtronic 1 [id number] 107129 39538 370138 1 2.0 catheter (JC2XT47) ABDON RX 2.0 x Medtronic 1 [id number] 627874 2240349 905999 5 [id number] 18 stent ([id number]) EXOSEAL 6Fr Cardinal 1 EX600 628935 520711 969728 10 (EX600) Health Signature Audit [place] Stage Time Signature Unsigned Intra-Procedure 02/19/2018 Pretty Calles 10:34:01 AM RT(R) Signatures Monitor : Pretty Calles RT Signature : Date : Time : [facility] [address] [place] [address]
--- NOTE | ~2018-02-19 | OP ---
PATIENT NAME: KAREN AYALA MEDICAL RECORD: [id number] :38 LOCATION:[facility] ADMISSION DATE: SURGEON: MADELINE BOOKER MD DATE OF OPERATION: 02/19/2018 DATE OF SERVICE: 02/19/2018 PROCEDURES: 1. PTCA stent RCA. 2. Left heart catheterization. 3. Selective coronary angiography. 4. Left ventriculogram. INDICATION: Angina and coronary artery disease. PROCEDURE PERFORMED: After informed consent was obtained and after detailed description of risks, benefits as well as alternative therapies, the patient elected to proceed with angiogram and angioplasty. The right femoral area was prepped and draped in normal sterile fashion. Right femoral artery was cannulated via modified Seldinger technique with placement of 6-Monegasque sheath. All catheters exchanged through this sheath. FINDINGS: The left ventriculogram was performed in standard 30-degree ZAMBRANO view, reveals good cardiac wall motion throughout all segments. Overall ejection fraction estimated 60%. SELECTIVE CORONARY ANGIOGRAPHY: 1. Left main showed no significant angiographic disease. 2. Left anterior descending has previously placed stents, these are widely patent with no significant restenosis. No disease elsewise at the LAD or its branches. 3. Left circumflex has previously placed stents, these are widely patent with no significant disease elsewise throughout the circumflex or its branches. 4. The right coronary has previously placed stents, these are widely patent; however, the PDA has 80% stenosis. PTCA STENT OF THE RIGHT PDA: The stent used was a 2.0 x 18 mm [place]. Result was 0% residual stenosis. OVERALL IMPRESSION: Successful percutaneous transluminal coronary angioplasty stent of the right coronary artery patent ductus arteriosus going from 80% initial stenosis to 0% residual. TRANSINT:[id number] Voice Confirmation ID: [id number] DOCUMENT ID: [id number] MADELINE BOOKER MD at 1843 CC: [id number] DICTATION DATE: 02/19/18 1034 SENIOR UI DESIGNER: 02/19/18 1048 DEP CLI 02/19/18 [place] [id number]
[2018-02-19] MEDS ORDERED: FOLIC ACID1 MG PO (07:58)
[2018-02-19] MEDS ORDERED: ISOSORBIDE DINI30 MG PO (07:59)
[2018-02-19] MEDS ORDERED: VITAMIN B-12250 MC3 PO (08:01)
[2018-02-19] MEDS ORDERED: CO Q-10400 MG PO (08:01)
[2018-02-19] MEDS ORDERED: ASCORBIC ACID500 MG PO (08:01)
[2018-02-19 08:09] VITALS: BP 115/76; Ht 180.3 cm; Wt 77.3 kg
[2018-02-19 08:37] LABS: BASOPHILS 0.4 % (0-2); EOSINOPHILS 4.4 % (0-7); HEMATOCRIT 43.2 % (42.0-54.0); HEMOGLOBIN 15.2 g/dL (13.5-17.5); IMMATURE GRANULOCYTES 0.3 % (0-5); LYMPHOCYTES 20.4 % (15-50); MCH 32.1 pg (26.0-34.0); MCHC 35.2 g/dL (31.0-37.0); MCV 91.1 fL (80.0-100.0); MEAN PLATELET VOLUME 9.2 fL (7.4-10.4); NEUTROPHILS 62.5 % (40-80); PLATELET COUNT 264 10x3/uL (130-400); RBC 4.74 10x6/uL (4.20-6.10); RDW 13.1 % (11.5-14.5)
[2018-02-19 08:53] LABS: CALCIUM 8.9 mg/dL (8.5-10.1); CARBON DIOXIDE 27.7 mmol/L (21.0-32.0); CREATININE - SERUM 1.3 mg/dL (0.6-1.3); POTASSIUM - SERUM 3.7 mmol/L (3.5-5.1)
== END 2018-02-19 14:30 | disposition home or self-care (01) ==
LOC: D.CATH 07:43
PROVIDERS: Internal Medicine Interventional Cardiology
DX: I25.119 Atherosclerotic heart disease of native coronary artery with unspecified angina pectoris (principal); Z01.812 Encounter for preprocedural laboratory examination; Z95.5 Presence of coronary angioplasty implant and graft
CPT/HCPCS: 93458; C9600

== ENCOUNTER 2018-07-28 08:43 | Outpatient (CLI) | payer MEDICARE ==
[~2018-07-28] VITALS: Ht 180.3 cm; Wt 79.5 kg
--- NOTE | ~2018-07-28 | HEMODYNAMI ---
PATIENT:KAREN AYALA MEDICAL RECORD: [id number] : 38 LOCATION:[facility] ADMISSION DATE: 07/28/18 Generatedon:07/28/201811:36 Patient name: KAREN AYALA Patient #: [id number] SSN: [id number] : 1940 Date of study: 07/28/2018 Page: Of Hemodynamic Procedure Report Patient Data Patient Demographics Procedure consent was obtained First Name: KAREN Gender: Male Last Name: LUCY : 1940 [facility] Initial: E Age: 78 year(s) Patient #: [id number] Race: SSN: [id number] Additional ID: [id number] Contact details Address: [place] [address] State: [place] City: [place] Zip code: [address] Past Medical History Allergies: No known allergies Admission Admission Data Admission Date: 07/28/2018 Admission Time: 8:43 Admit Source: Other Lab Results Lab Result Date: 07/28/2018 Lab Result Time: 9:20 Biochemistry Name Units Result Min Max BUN mg/dl 21 --(----)-* 7 18 Creatinine mg/dl 1.1 --(--*-)-- 0.6 1.3 CBC Name Units Result Min Max Hematocrit % 39.9 -*(----)-- 42 54 Hemoglobin g/dl 14.1 --(*---)-- 13.5 17.5 Procedure Procedure Types Cath Procedure Diagnostic Procedure LHC LHC w/Coronaries PCI Procedure PTCA PTCA Initial Procedure Description Procedure Date Procedure Date: 07/28/2018 Procedure Start Time: 11:20 Procedure End Time: 11:34 Procedure Staff Name Function Rodrigo Carreon MD Performing Physician Rafael Chance RT Monitor Tiffany Velarde RT Scrub Maria Luisa Bella RN Nurse Procedure Data Cath Procedure Fluoroscopy Diagnostic fluoroscopy Total fluoroscopy Time: 2.7 time: 2.7 min min Diagnostic fluoroscopy Total fluoroscopy dose: 485 dose: 485 mGy mGy Contrast Material Contrast Material Type Amount (ml) Isovue 300 48 Entry Location Entry Primary Successful Side Size Upsize Upsize Entry Closure Succes sful Closure Location (Fr) 1 (Fr) 2 (Fr) Remarks Device Remarks Femoral Right 5 Fr 6 Fr Exoseal artery Short Estimated blood loss: 10 ml Diagnostic catheters Device Type Used For End Catheter Placement MULTIPACK Pigtail 5 Fr Procedure catheter MULTIPACK JL 4.0 5Fr Procedure catheter MULTIPACK 3DRC 5Fr Procedure catheter Procedure Complications No complications Procedure Medications Medication Administration Route Dosage 0.9% NaCl I.V. 100 ml/hr Oxygen etCO2 Nasal cannula 2 l/min Lidocaine 2% added to field 20 Heparin Flush Bag added to field 2 bags (1000units/500ml NS) Versed I.V. 2 mg Fentanyl I.V. 50 mcg Versed I.V. 2 mg Fentanyl I.V. 50 mcg Heparin Bolus I.V. 4000 units Hemodynamics Rest HGB: 14.1 (g/dl) Heart Rate: 70 (bpm) Snapshots Pre Cath Intra NCS Post Cath Vital Signs Time Heart Resp SPO2 etCO2 NIBP (mmHg) Rhythm Pain Sedation Rate (ipm) (%) (mmHg) Status Level (bpm) 11:09:35 69 14 99 30.5 178/83(139) NSR 0 (11) 10(A) , No pain 11:14:01 67 12 98 22.4 163/79(132) NSR 0 (11) 10(A) , No pain 11:18:17 60 12 96 32.8 143/76(117) NSR 0 (11) 10(A) , No pain 11:22:33 63 13 98 34.3 142/87(114) NSR 0 (11) 10(A) , No pain 11:26:54 61 10 99 35.6 138/73(126) NSR 0 (11) 9(A) , No pain 11:31:18 64 17 97 36.8 144/66(119) NSR 0 (11) 10(A) , No pain Medications Time Medication Route Dose Verified Delivered Reason Notes Effectiveness by by 11:08:48 0.9% NaCl I.V. 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 2 mg Rodrigo Maria Luisa for sedation Velma Bella RN 11:18:38 Fentanyl I.V. 50 Rodrigo Maria Luisa for sedation mcg Velma Bella RN 11:25:11 Versed I.V. 2 mg Rodrigo Maria Luisa for sedation Velma Bella RN 11:25:15 Fentanyl I.V. 50 Rodrigo Maria Luisa for sedation mcg Velma Bella RN 11:28:25 Heparin Bolus I.V. 4000 Rodrigo Maria Luisa for verif ied units Velma Bella anticoagulation with Dr. ERUM Carreon Procedure Log Time Note 10:50:17 Tiffany Velarde RT(R) sent for patient. Start room use. 10:52:29 Informed consent obtained and on chart 10:52:33 Admit Source: Other 10:52:47 Diagnostic Cath status Elective 10:52:49 Time tracking: Regular hours (M-F 7:00 - 5:00) 10:52:52 Plan of Care:Hemodynamics will remain stable., Cardiac rhythm will remain stable., Comfort level will be maintained., Respiratory function will remain adequate., Patient/ family verbilizes understanding of procedure., Procedure tolerated without complication., Recovers from procedure without complications.. 10:53:31 H&P Date Dictated: 07/27/2018 Within 30 days and on chart., H&P Addendum completed by physician on day of procedure. (MUST COMPLETE FOR ALL OUTPATIENTS). 11:03:20 Patient received from Pre/Post Procedure Room to CCL 1 Alert and oriented. Tansferred to table in Supine position. 11:03:21 Warm blankets applied, and michelle hugger turned on for patient comfort. 11:03:21 Correct patient and procedure confirmed by team. 11:03:21 ECG and BP/O2 sat monitors applied to patient. 11:03:23 Pre-procedure instructions explained to patient. 11:03:23 Pre-op teaching completed and patient verbalized understanding. 11:03:24 Family in waiting room. 11:03:26 Patient NPO since Midnight. 11:03:37 Patient allergic to No known allergies 11:03:39 Is the patient allergic to Iodine/contrast media? No. 11:03:40 Is patient on blood thinner?Yes 11:03:43 ACC The patient was administered the following blood thiners within the last 24 hours: ACCPlavix 11:03:54 Previous problem with sedation/anesthesia? No ? 11:04:01 Patient diabetic? No. 11:04:02 Snore? Yes 11:04:03 Sleep apnea? No 11:04:04 Deviated septum? Yes 11:04:04 Opens mouth fully? Yes 11:04:05 Sticks out tongue? Yes 11:04:12 Airway obstruction? No ? 11:04:14 Dentures? No ? 11:04:24 Pre procedure: right dorsailis pedis pulse 1+ Palpable, but thready & weak; easily obliterated 11:04:27 Patient pain scale 0/10 ?. 11:04:44 IV patent on arrival in left forearm with 0.9% NaCl at [facility]. 11:04:47 Lab results completed and on chart. 11:08:48 0.9% NaCl 100 ml/hr I.V. was administered by Maria Luisa Bella RN; used for procedure; 11:08:55 Oxygen 2 l/min etCO2 Nasal cannula was administered by Maria Luisa Bella RN; used for procedure; 11:09:00 Lidocaine 2% 20ml vial added to field was administered by Rodrigo Carreon MD; for local anesthetic; 11:09:06 Heparin Flush Bag (1000units/500ml NS) 2 bags added to field was administered by Rodrigo Carreon MD; used for procedure; 11:12:50 Vital chart was started 11:12:51 Baseline sample Acquired. 11:12:54 Rhythm: sinus rhythm 11:12:55 Full Disclosure recording started 11:13:24 Lab Result : Creatinine 1.1 mg/dl 11::24 Lab Result : BUN 21 mg/dl 11:13:24 Lab Result : Hematocrit 39.9 % 11:13:24 Lab Result : Hemoglobin 14.1 g/dl 11:13:29 Right groin area was prepped with chlora-prep and draped in sterile fashion 11:13:30 Alarms reviewed by Mendez. N. 11:13:33 Sharps counted by scrub and verified by R.N. 11:13:36 Use device set Femoral Dx 11:13:41 ACIST Syringe (09579) opened to sterile field. 11:13:42 Bag Decanter (2002S) opened to sterile field. 11:13:43 Medline Cath Pack ([id number]) opened to sterile field. 11:13:44 ACIST Hand Control (73398) opened to sterile field. 11:13:45 ACIST Manifold (03749) opened to sterile field. 11:13:53 Tegaderm 4 x 4 (1626W) opened to sterile field. 11:13:55 DIAGNOSTIC Multipack 5Fr catheter set ([id number]) opened to sterile field. 11:13:56 SHEATH 5FR [place] (ELI214) opened to sterile field. 11:15:17 HERNAN GUIDEWIRE opened to sterile field. 11:17:01 Physician arrived 11:17:01 --------ALL STOP TIME OUT------ 11:17:01 Final Timeout: patient, procedure, and site verified with staff and physician. All members of the team are in agreement. 11:17:03 Right groin site verified by team. 11:17:07 Fire Safety Assessment: A--An alcohol-based skin anteseptic being used preoperatively., C--Open oxygen or nitrous oxide is being used., D--An ESU, laser, or fiber-optic light is being used. 11:17:10 Physical assessment completed. ASA score P 2 - A patient with mild systemic disease as per Rodrigo Carreon MD. 11:17:13 Sedation plan: IV Moderate Sedation Medication:Versed, Fentanyl 11:18:33 Versed 2 mg I.V. was administered by Maria Luisa Bella RN; for sedation; 11:18:38 Fentanyl 50 mcg I.V. was administered by Maria Luisa Bella RN; for sedation; 11:19:42 Zero performed for pressure channel P1 11:20:56 Procedure started. 11:20:58 Local anesthetic to right femoral artery with Lidocaine 2% by Rodrigo Carreon MD.INITIAL ACCESS ONLY 11:21:03 A 5 Fr sheath was inserted into the Right Femoral artery 11:21:14 A MULTIPACK Pigtail 5 Fr catheter was advanced over the wire and used for Procedure. 11:24:46 LV gram done using ZAMBRANO 11::48 Injector settings: Ml/sec: 10, Volume: 20, 11:24:49 LV hemodynamics recorded. 11:24:53 EF : 60 % 11:24:55 Catheter exchanged over wire. 11:24:59 A MULTIPACK JL 4.0 5Fr catheter was advanced over the wire and used for Procedure. 11:25:11 Versed 2 mg I.V. was administered by Maria Luisa Bella RN; for sedation; 11:25:15 Fentanyl 50 mcg I.V. was administered by Maria Luisa Bella RN; for sedation; 11:25:45 SHEATH 6FR [place] (MAF051) opened to sterile field. 11:25:46 CHOICE PT Extra Support 182cm wire ([id number]) opened to sterile field. 11:25:46 INFLATOR Merit BasixCompak (AB9452) opened to sterile field. 11:26:03 LCA angiography performed. 11:26:50 Catheter exchanged over wire. 11:26:56 A MULTIPACK 3DRC 5Fr catheter was advanced over the wire and used for Procedure. 11:26:59 RCA angiography performed. 11:27:08 Catheter removed. 11:27:17 GUIDE 6FR XBLAD 3.5 catheter ([id number]) opened to sterile field. 11:27:33 Sheath upsized to a 6 Fr Short. 11:27:43 6 Fr XBLAD 3.5 guide catheter was inserted over the wire 11:28:24 CHOICE PT ES wire advanced. 11:28:25 Heparin Bolus 4000 units I.V. was administered by Maria Luisa Bella RN; for anticoagulation; verified with Dr. Carreon 11:29:12 Wire advanced across lesion. 11:30:52 Inflate balloon Inflation number: 1 A NC EUPHORA 2.5 x 15 balloon ([id number]) was prepped and advanced across the Mid LAD, then inflated to 23 GRACE for 0:10 (min:sec). 11:31:40 Inflation number: 2 The NC EUPHORA 2.5 x 15 balloon ([id number]) was reinflated across the Mid LAD, to 23 GRACE for 0:10 (min:sec). 11:31:44 Balloon removed over the wire. 11:31:45 Wire removed. 11:31:59 EXOSEAL 6Fr (EX600) opened to sterile field. 11:32:22 Sheath removed intact; hemostasis achieved with Exoseal to the Right Femoral artery. 11:32:24 Procedure ended.(Physican Out) 11:32:37 Fluoroscopy time 02.70 minutes. 11:32:41 Flurop Dose total: 485 11:32:41 Fluoroscopy dose: 485 mGy 11:33:01 Contrast amount:Isovue 300 48ml. 11:33:03 Sharps counted by scrub and verified by R.N. 11:33:03 Insertion/operative site no bleeding no hematoma. 11:33:07 Post-op/insertion site Right Femoral artery dressed using a 4 x 4 and Tegaderm. 11:33:13 Post right femoral artery:stable, soft, clean and dry 11:33:15 Post Procedure Pulses reassessed and unchanged 11:33:17 Post-procedure physical assessment completed. ASA score P 2 - A patient with mild systemic disease as per Rodrigo Carreon MD. 11:33:23 Post procedure rhythm: unchanged. 11:33:26 Estimated blood loss: 10 ml 11:33:27 Post procedure instruction explained to patient.Patient verbalizes understanding. 11:33:27 Patient needs reinforcement of post procedure teaching. 11:33:42 Procedure type changed to Cath procedure, Diagnostic procedure, LHC, LHC w/Coronaries, PCI procedure, PTCA, PTCA Initial 11:34:17 Procedure and supply charges have been captured, reviewed, submitted and are correct. 11:34:19 Procedure Complication : No complications 11:34:21 Vital chart was stopped 11:34:21 See physician's report for complete and final results. 11:34:22 Report given to Pre/Post Procedure Room. 11:34:25 Patient transfered to Pre/Post Procedure Room with Stretcher. 11:34:27 Procedure ended. 11:34:27 Full Disclosure recording stopped 11:34:30 End room use (Document Last) Intervention Summary Intervention Notes Time ActionType Lesion and Equipment Action# Pressure Duration Attributes Used 11:30:52 Inflate Mid LAD NC EUPHORA 1 23 00:10 balloon 2.5 x 15 balloon ([id number]) 11:31:40 Reinflate Mid LAD NC EUPHORA 2 23 00:10 balloon 2.5 x 15 balloon ([id number]) Device Usage Item Name Manufacture Quantity Catalog Number Hospital Part Current Mini mal Lot# / Charge Number Stock Stock Serial# Code ACIST Acist 1 65565 046667 606890 848812 20 Syringe Medical (47330) Systems Inc Bag Decanter Microtek 1 2001S 177289 68940 880915 5 (2001S) Medical Inc. Medline Cath Medline 1 [id number] 891161 02420 239042 5 Pack ([id number]) ACIST Hand Acist 1 52589 164056 297516 635448 5 Control Medical (89440) Systems Inc ACIST Acist 1 99907 309741 885005 343842 5 Manifold Medical (54870) Systems Inc Tegaderm 4 x 3M 1 1626W 800346 406210 954071 5 4 (1626W) DIAGNOSTIC Cardinal 1 [id number] 746025 63035 468952 30 Multipack Health 5Fr catheter set (TU8894) SHEATH 5FR Terumo 1 JJD446 987629 074761 622069 5 [place] (PHF651) EMERALD Unknown 1 0 0 GUIDEWIRE MULTIPACK Cardinal 1 169183 5 Pigtail 5 Fr Health catheter MULTIPACK JL Cardinal 1 604827 5 4.0 5Fr Health catheter SHEATH 6FR Terumo 1 JXK286 861733 102165 194594 40 [place] (VAF500) CHOICE PT [place] 1 [id number] 340087 883329 195236 5 Extra Scientific Support 182cm wire ([id number]) INFLATOR Merit 1 WA5387 845020 993657 324063 15 [facility] BasixCompak (WQ2346) MULTIPACK Cardinal 1 591704 5 3DRC 5Fr Health catheter GUIDE 6FR Cardinal 1 [id number] 108259 086929 124687 10 XBLAD 3.5 Health catheter (59379642) NC EUPHORA Medtronic 1 [id number] 103241 190723 033044 1 [id number] 2.5 x 15 balloon ([id number]) EXOSEAL 6Fr Cardinal 1 EX600 981487 640099 480348 10 (EX600) Health Signature Audit [place] Stage Time Signature Unsigned Intra-Procedure 07/28/2018 Rafael Chance 11:35:58 AM RT(R) Signatures Monitor : Rafael Chance RT Signature : Date : Time : [facility] [address] [place] [address]
[~2018-07-28 08:43] MED LIST changes: +CO Q-10400 MG PO; +FOLIC ACID1 MG PO; +ISOSORBIDE DINI30 MG PO; +VITAMIN B-12250 MC3 PO
[2018-07-28 09:23] VITALS: BP 164/73; Ht 180.3 cm; Wt 79.5 kg
[2018-07-28 09:30] LABS: BASOPHILS 0.6 % (0-2); EOSINOPHILS 3.9 % (0-7); HEMATOCRIT 39.9 % (42.0-54.0); HEMOGLOBIN 14.1 g/dL (13.5-17.5); IMMATURE GRANULOCYTES 0.1 % (0-5); MCH 31.7 pg (26.0-34.0); MCHC 35.3 g/dL (31.0-37.0); MCV 89.7 fL (80.0-100.0); MEAN PLATELET VOLUME 8.8 fL (7.4-10.4); MONOCYTES 9.1 % (2-11); NEUTROPHILS 65.3 % (40-80); PLATELET COUNT 260 10x3/uL (130-400); RBC 4.45 10x6/uL (4.20-6.10); RDW 12.9 % (11.5-14.5); WBC 6.7 10x3/uL (4.8-10.8)
[2018-07-28 09:40] LABS: ANION GAP 14.6 mmol/L (8-16); CARBON DIOXIDE 26.2 mmol/L (21.0-32.0); CREATININE - SERUM 1.1 mg/dL (0.6-1.3); POTASSIUM - SERUM 3.8 mmol/L (3.5-5.1)
--- NOTE | 2018-07-28 12:00 | NUR ---
RIGHT GROIN DRESSING C/D/I. NO S/S OF HEMATOMA NOTED. RIGHT PEDAL PULSE PALPABLE.
--- NOTE | 2018-07-28 12:30 | NUR ---
RIGHT GROIN DRESSING C/D/I. NO S/S OF HEMATOMA NOTED. RIGHT PEDAL PULSE PALPABLE. VSS.
--- NOTE | 2018-07-28 13:07 | NUR ---
RIGHT GROIN DRESSING C/D/I. NO S/S OF HEMATOMA NOTED. VSS. RIGHT PEDAL PULSE PALPABLE. DENIES NAUSEA. CALL LIGHT WITHIN REACH.
--- NOTE | 2018-07-28 14:40 | NUR ---
HEAD OF BED INCREASED TO 30 DEGREES. RIGHT GROIN DRESSING C/D/I. NO S/S OF HEMATOMA NOTED. VSS. RIGHT PEDAL PULSE PALPABLE.
--- NOTE | 2018-07-28 14:55 | NUR ---
LEFT FA PIV D/C'D WITH CATH TIP INTACT. TOLERATED WELL. RIGHT GROIN DRESSING C/D/I. NO S/S OF HEMATOMA NOTED. PT INSTRUCTED TO GET UP AND GET DRESSED.
--- NOTE | 2018-07-28 15:17 | NUR ---
PT AMBULATED TO RESTROOM. STEADY GAIT NOTED.
--- NOTE | 2018-07-28 15:20 | NUR ---
DISCUSSED DISCHARGE INSTRUCTIONS WITH PT AND PT'S FAMILY. THEY VOICED UNDERSTANDING.
--- NOTE | 2018-07-28 15:25 | NUR ---
PT TAKEN OUT TO VEHICLE BY WHEELCHAIR. NO S/S OF DISTRESS NOTED. ALL BELONGINGS AND PAPERWORK IN HAND.
--- NOTE | 2018-07-29 17:10 | OP ---
PATIENT NAME: KAREN AYALA MEDICAL RECORD: [id number] :38 LOCATION:D.CAT ADMISSION DATE: SURGEON: MADELINE BOOKER MD DATE OF OPERATION: 07/28/2018 PROCEDURES: 1. High-pressure PTCA of LAD. 2. Left heart catheterization. 3. Selective coronary angiography. 4. Left ventriculogram. INDICATIONS: Unstable angina and coronary artery disease. PROCEDURE IN DETAIL: After informed consent was obtained and after a detailed explanation of the risks, benefits as well as alternative therapies, the patient elected to proceed with angiogram and angioplasty. The right femoral area was prepped and draped in normal sterile fashion. Right femoral artery was cannulated via modified Seldinger technique with placement of 6-Ukrainian sheath. All catheters exchanged through this sheath. FINDINGS: Left ventriculogram was performed in standard 30-degree ZAMBRANO view, reveals good cardiac wall motion throughout all segments. Overall ejection fraction estimated 60%. SELECTIVE CORONARY ANGIOGRAPHY: 1. Left main is with no significant angiographic disease. 2. Left circumflex has previously placed stents. There is no significant restenosis. No disease elsewise throughout the circumflex or its branches. 3. Left anterior descending has previously placed stents. There is 80% to 85% in-stent restenosis in the distal aspect of these stents. 4. Right coronary has mild irregularities, but no flow-limiting stenosis. Previously placed stents are widely patent. PTCA OF THE LAD: High-pressure PTCA was performed with a 2.5 high-pressure balloon up to 23 atmospheres. Result was 0% residual. IMPRESSION: Successful high-pressure PTCA of the LAD for in-stent restenosis going from 85% initial stenosis to 0% residual. TRANSINT:[id number] Voice Confirmation ID: [id number] DOCUMENT ID: [id number] MADELINE BOOKER MD at 1710 CC: [id number] DICTATION DATE: 07/28/18 1135 INTELLIGENCE APPLICATIONS: 07/28/18 1252 DEP CLI 07/28/18 [place] [id number]
== END 2018-07-28 15:25 | disposition home or self-care (01) ==
LOC: D.CATH 08:43
PROVIDERS: Internal Medicine Interventional Cardiology
DX: I25.110 Atherosclerotic heart disease of native coronary artery with unstable angina pectoris (principal)

== ENCOUNTER 2018-11-08 07:24 | Outpatient (CLI) | payer MEDICARE ==
[~2018-11-08] VITALS: Ht 180.3 cm; Wt 79.5 kg
--- NOTE | ~2018-11-08 | OP ---
PATIENT NAME: KAREN AYALA MEDICAL RECORD: [id number] :38 LOCATION:D.CAT ADMISSION DATE: SURGEON: MADELINE BOOKER MD DATE OF OPERATION: 11/08/2018 PROCEDURES: 1. PTCA stent LAD. 2. IFR left circumflex. 3. Left heart catheterization. 4. Selective coronary angiography. 5. Left ventriculogram. INDICATION: Angina and coronary artery disease. PROCEDURE IN DETAIL: After informed consent was obtained and after detailed explanation of risks, benefits as well as alternative therapies, the patient elected to proceed with angiogram and angioplasty. The right femoral area was prepped and draped in normal sterile fashion. The right femoral artery was cannulated via modified Seldinger technique with placement of 6-Martiniquais sheath. All catheters exchanged through this sheath. FINDINGS: The left ventriculogram was performed in a standard 30-degree ZAMBRANO view, reveals preserved cardiac wall motion, ejection fraction 50%. SELECTIVE CORONARY ANGIOGRAPHY: 1. Left main has no significant angiographic disease. 2. Left anterior descending has previously placed stents. There is 95% in-stent restenosis in the mid vessel. 3. The left circumflex has previously placed stents. There is questionable stenosis in the mid vessel; however IFR was normal. 4. The right coronary has previously placed stents, these are widely patent with no significant restenosis noted. No significant disease elsewise of the RCA or its branches. PTCA STENT OF THE LAD: The stent is with a 2.0 x 8 mm Shreyas taken to 21 atmospheres. Result was 0% total stenosis. OVERALL IMPRESSION: Successful percutaneous transluminal angioplasty stent of the left anterior descending going from 95% in-stent restenosis to 0% residual stenosis. TRANSINT:[id number] Voice Confirmation ID: [id number] DOCUMENT ID: [id number] MADELINE BOOKER MD CC: [id number] DICTATION DATE: 11/08/18 0958 ACTIONSCRIPT DEVELOPER: 11/08/18 1124 [facility] [address] [place] [address]
--- NOTE | ~2018-11-08 | HEMODYNAMI ---
PATIENT:KAREN AYALA MEDICAL RECORD: [id number] : 38 LOCATION:[facility] ADMISSION DATE: 11/08/18 Generatedon:11/08/20189:58 Patient name: KAREN AYALA Patient #: [id number] SSN: [id number] : 1940 Date of study: 11/08/2018 Page: Of Hemodynamic Procedure Report Patient Data Patient Demographics Procedure consent was obtained First Name: KAREN Gender: Male Last Name: LUCY : 1940 Middle Initial: E Age: 78 year(s) Patient #: [id number] Race: SSN: [id number] Additional ID: [id number] Contact details Address: [place] [address] State: [place] City: [place] Zip code: [address] Past Medical History Allergies: No known allergies Admission Admission Data Admission Date: 11/08/2018 Admission Time: 7:24 Procedure Procedure Types Cath Procedure Diagnostic Procedure LHC LHC w/Coronaries FFR/IVUS FFR Initial FFR Additional PCI Procedure Coronary Stent Coronary Stent Initial Procedure Description Procedure Date Procedure Date: 11/08/2018 Procedure Start Time: 9:31 Procedure End Time: 9:57 Procedure Staff Name Function Rodrigo Carreon MD Performing Physician Romain Zhang RN Nurse Kyrie Gamboa RT Monitor Balbina Dias RT Scrub Procedure Data Cath Procedure Fluoroscopy Diagnostic fluoroscopy Total fluoroscopy Time: 6 time: 6 min min Diagnostic fluoroscopy Total fluoroscopy dose: 516 dose: 516 mGy mGy Contrast Material Contrast Material Type Amount (ml) Isovue 370 110 Entry Location Entry Primary Successful Side Size Upsize Upsize Entry Closure Succes sful Closure Location (Fr) 1 (Fr) 2 (Fr) Remarks Device Remarks Femoral Right 5 Fr 6 Fr Exoseal artery Short Estimated blood loss: 10 ml Diagnostic catheters Device Type Used For End Catheter Placement MULTIPACK Pigtail 5 Fr Procedure catheter MULTIPACK JL 4.0 5Fr Procedure catheter MULTIPACK 3DRC 5Fr Procedure catheter Procedure Complications No complications Procedure Medications Medication Administration Route Dosage Oxygen etCO2 Nasal cannula 2 l/min Lidocaine 2% added to field 20 Heparin Flush Bag added to field 2 bags (1000units/500ml NS) 0.9% NaCl I.V. 100 ml/hr Versed I.V. 1 mg Fentanyl I.V. 50 mcg Versed I.V. 1 mg Fentanyl I.V. 50 mcg Heparin Bolus I.V. 4000 units Versed I.V. 1 mg Hemodynamics Rest Heart Rate: 64 (bpm) Pressure Samples Time Site Value (mmHg) Purpose Heart Use Rate(bpm) 9:34 AO 126/64(91) Snapshot 56 Snapshots Pre Cath Intra NCS Post Cath Vital Signs Time Heart Resp SPO2 etCO2 NIBP (mmHg) Rhythm Pain Sedation Rate (ipm) (%) (mmHg) Status Level (bpm) 9:19:47 65 27 98 0 161/77(142) NSR 0 (11) 10(A) , No pain 9:24:09 63 18 97 0 159/71(138) NSR 0 (11) 10(A) , No pain 9:28:29 56 13 96 17.2 133/72(116) NSR 0 (11) 10(A) , No pain 9:32:39 60 17 98 12.7 125/79(103) NSR 0 (11) 9(A) , No pain 9:37:54 59 13 96 31.5 151/67(118) NSR 0 (11) 9(A) , No pain 9:42:12 55 12 93 0 125/69(106) NSR 0 (11) 9(A) , No pain 9:46:26 58 14 96 0 131/54(95) NSR 0 (11) 9(A) , No pain 9:50:38 56 13 96 0 126/68(108) NSR 0 (11) 10(A) , No pain 9:54:48 56 10 96 0 121/65(98) NSR 0 (11) 10(A) , No pain Medications Time Medication Route Dose Verified Delivered Reason Notes Effectiveness by by 9:27:51 Oxygen etCO2 2 Rodrigo Hoyos used for Nasal l/min Velma Zhang RN procedure cannula 9:27:58 Lidocaine 2% added 20ml Rodrigo Wallace for local to vial Velma Carreon MD anesthetic field 9:28:03 Heparin Flush added 2 Rodrigo Wallace used for Bag to bags Velma Carreon MD procedure (1000units/500ml field NS) 9:28:12 0.9% NaCl I.V. 100 Rodrigo Hoyos Per physician ml/hr Velma Zhang RN 9:28:22 Versed I.V. 1 mg Rodrigo Buffie for sedation Velma Zhang RN 9:28:27 Fentanyl I.V. 50 Rodrigo Buffie for sedation mcg Velma Zhang RN 9:33:26 Versed I.V. 1 mg Rodrigo Buffie for sedation Velma Zhang RN 9:33:30 Fentanyl I.V. 50 Rodrigo Buffie for sedation mcg Velma Zhang RN 9:39:09 Heparin Bolus I.V. 4000 Rodrigo Casillasie for verifi ed units Velma Zhang RN anticoagulation wtih dr carreon 9:43:07 Versed I.V. 1 mg Rodrigo Casillasie for sedation Velma Zhang RN Procedure Log Time Note 8:48:50 Time tracking: Regular hours (M-F 7:00 - 5:00) 8:48:53 Plan of Care:Hemodynamics will remain stable., Cardiac rhythm will remain stable., Comfort level will be maintained., Respiratory function will remain adequate., Patient/ family verbilizes understanding of procedure., Procedure tolerated without complication., Recovers from procedure without complications.. 8:50:11 Romain Zhang RN sent for patient. Start room use. 9:13:16 Patient received from Pre/Post Procedure Room to CCL 3 Alert and oriented. Tansferred to table in Supine position. 9:13:17 Warm blankets applied, and michelle hugger turned on for patient comfort. 9:13:17 Correct patient and procedure confirmed by team. 9:13:19 Signed procedure consent form obtained from patient. 9:13:19 ECG and BP/O2 sat monitors applied to patient. 9:13:20 Full Disclosure recording started 9:18:35 Vital chart was started 9:18:38 Rhythm: sinus rhythm 9:25:14 Baseline sample Acquired. 9:25:34 H&P Date Dictated: 11/04/2018 Within 30 days and on chart., H&P Addendum completed by physician on day of procedure. (MUST COMPLETE FOR ALL OUTPATIENTS). 9:25:35 Pre-procedure instructions explained to patient. 9:25:36 Pre-op teaching completed and patient verbalized understanding. 9:25:49 Family in patients room. 9:26:17 Patient NPO since Midnight. 9:26:19 Is the patient allergic to Iodine/contrast media? No. 9:26:21 Is patient on blood thinner?Yes 9:26:23 ACC The patient was administered the following blood thiners within the last 24 hours: ACCPlavix 9:26:35 Patient diabetic? No. 9:26:38 Previous problem with sedation/anesthesia? No ? 9:26:40 Snore? Yes 9:26:41 Sleep apnea? No 9:26:42 Deviated septum? No 9::42 Opens mouth fully? Yes 9::43 Sticks out tongue? Yes 9:26:46 Airway obstruction? No ? 9:26:52 Dentures? Yes IN 9:27:06 Pre procedure: right dorsailis pedis pulse 1+ Palpable, but thready & weak; easily obliterated 9:27:11 Patient pain scale 0/10 ?. 9:27:24 IV patent on arrival in left forearm with 0.9% NaCl at O. 9:27:41 Lab results completed and on chart. 9:27:51 Oxygen 2 l/min etCO2 Nasal cannula was administered by Romain Zhang RN; used for procedure; 9:27:58 Lidocaine 2% 20ml vial added to field was administered by Rodrigo Carreon MD; for local anesthetic; 9:28:01 Right groin area was prepped with chlora-prep and draped in sterile fashion 9::02 Alarms reviewed by R. N. 9:28:03 Heparin Flush Bag (1000units/500ml NS) 2 bags added to field was administered by Rodrigo Carreon MD; used for procedure; 9:28:03 Sharps counted by scrub and verified by R.N. 9::05 --------ALL STOP TIME OUT------ 9::05 Final Timeout: patient, procedure, and site verified with staff and physician. All members of the team are in agreement. 9:28:07 Right groin site verified by team. 9:28:10 Maximum allowable Isovue 370 dose 300ml. Physician notified. (300ml for normal creatinines. For patients with creatinine of 1.7 or higher multiply weight(kg) x 5 divided by creatinine.) 9:28:12 0.9% NaCl 100 ml/hr I.V. was administered by Romain Zhang RN; Per physician; 9:28:19 Fire Safety Assessment: A--An alcohol-based skin anteseptic being used preoperatively., C--Open oxygen or nitrous oxide is being used., D--An ESU, laser, or fiber-optic light is being used. 9:: Versed 1 mg I.V. was administered by Romain Zhang RN; for sedation; :: Physical assessment completed. ASA score P 2 - A patient with mild systemic disease as per Rodrigo Carreon MD. 9:28:25 Sedation plan: IV Moderate Sedation Medication:Versed, Fentanyl 9:28:27 Fentanyl 50 mcg I.V. was administered by Romain Zhang RN; for sedation; 9:29:51 Use device set Femoral Dx 9:29:54 Tegaderm 4 x 4 (1626W) opened to sterile field. 9:29:55 ACIST Manifold (14039) opened to sterile field. 9:29:56 ACIST Hand Control (83122) opened to sterile field. 9:29:57 ACIST Syringe (42808) opened to sterile field. 9:29:58 Bag Decanter () opened to sterile field. 9:29:58 Medline Cath Pack ([id number]) opened to sterile field. 9:29:59 DIAGNOSTIC WIRE .035 260cm J wire (855597) opened to sterile field. 9:30:01 DIAGNOSTIC Multipack 5Fr catheter set (TP5718) opened to sterile field. 9:30:02 SHEATH 5FR [place] (FKM680) opened to sterile field. 9:31:26 Procedure started. 9:31:31 Local anesthetic to right femoral artery with Lidocaine 2% by Rodrigo Carreon MD.INITIAL ACCESS ONLY 9:31:46 Zero performed for pressure channel P1 9:31:48 Zero performed for pressure channel P1 9:33:11 A 5 Fr sheath was inserted into the Right Femoral artery 9:33:22 A MULTIPACK Pigtail 5 Fr catheter was advanced over the wire and used for Procedure. 9:33:26 Versed 1 mg I.V. was administered by Romain Zhang RN; for sedation; 9:33:30 Fentanyl 50 mcg I.V. was administered by Romain Zhang RN; for sedation; 9:33:47 LV angiography performed. 9:33:48 LV gram done using ZAMBRANO 9:33:53 EF : 50 % 9:33:56 Injector settings: Ml/sec: 10, Volume: 20, 9:33:58 Catheter removed. 9:34:02 A MULTIPACK JL 4.0 5Fr catheter was advanced over the wire and used for Procedure. 9:35:13 LCA angiography performed. 9:35:48 Catheter removed. 9:37:00 A MULTIPACK 3DRC 5Fr catheter was advanced over the wire and used for Procedure. 9:37:03 RCA angiography performed. 9:38:35 Use device set TAU PCI 9:39:09 Heparin Bolus 4000 units I.V. was administered by Romain Zhang RN; for anticoagulation; verified wtih dr carreon 9:39:47 Sheath upsized to a 6 Fr Short. 9:39:54 6 Fr XB 4 guide catheter was inserted over the wire 9:40:11 INFLATOR Merit BasixCompak (RS2719) opened to sterile field. 9:40:15 CHOICE PT Extra Support 182cm wire ([id number]) opened to sterile field. 9:40:18 SHEATH 6FR [place] (MLQ803) opened to sterile field. 9:40:18 GUIDE 6FR XB 4.0 catheter ([id number]) opened to sterile field. 9:40:19 GUIDE 6FR XBLAD 3.5 catheter ([id number]) opened to sterile field. 9:40:36 FFR/IFR wire advanced. 9:43:07 Versed 1 mg I.V. was administered by Romain Zhang RN; for sedation; 9:43:08 Wire advanced across lesion. 9:43:43 OM lesion measured at 0.99 with IFR 9:44:29 Wire redirected to CIRC. 9:44:41 CIRC lesion measured at 1.02 with IFR 9:44:50 Wire removed. 9:45:00 Guide catheter removed. 9:46:01 [place] Plus pressure wire (19556K) opened to sterile field. 9:46:11 6 Fr XBLAD 3.5 guide catheter was inserted over the wire 9:46:31 CPTXS wire advanced. 9:46:59 Wire advanced across lesion. 9:47:42 Inflate balloon Inflation number: 1 A EUPHORA 2.0 x 15 Balloon ([id number]) was prepped and advanced across the Mid LAD, then inflated to 21 GRACE for 0:10 (min:sec). 9:48:22 Multiple inflations made at 21 Atms. 9:49:40 Balloon removed over the wire. 9:50:13 Place stent Inflation Number: 2 A ABDON RX 2.0 x 8 stent ([id number]) was prepped and advanced across the Mid LAD. The stent was deployed at 19 GRACE for 0:10 (min:sec). 9:50:49 Inflation number: 3 The stent balloon was then re-inflated across the Mid LAD to 21 GRACE for 0:10 (min:sec). 9:51:17 Stent catheter was removed intact over wire. 9:51:17 Wire removed. 9:51:18 Guide catheter removed. 9:51:20 EXOSEAL 6Fr (EX600) opened to sterile field. 9:51:30 Sheath removed intact; hemostasis achieved with Exoseal to the Right Femoral artery. 9:51:32 Procedure ended.(Physican Out) 9:54:10 Fluoroscopy time 06.00 minutes. 9:54:34 Fluoroscopy dose: 516 mGy 9:54:34 Flurop Dose total: 516 9:54:42 Contrast amount:Isovue 370 110ml. 9:54:44 Sharps counted by scrub and verified by R.N. 9:54:46 Insertion/operative site no bleeding no hematoma. 9:55:21 Post-op/insertion site Right Femoral artery dressed using a 4 x 4 and Tegaderm. 9:55:22 Post Procedure Pulses reassessed and unchanged 9:55:25 Post-procedure physical assessment completed. ASA score P 2 - A patient with mild systemic disease as per Rodrigo Carreon MD. 9:55:30 Post procedure rhythm: unchanged. 9:55:33 Estimated blood loss: 10 ml 9:55:38 Post procedure instruction explained to patient.Patient verbalizes understanding. 9:55:38 Patient needs reinforcement of post procedure teaching. 9:56:49 Procedure type changed to Cath procedure, Diagnostic procedure, LHC, LHC w/Coronaries, FFR/IVUS, FFR Initial, FFR Additional, PCI procedure, Coronary Stent, Coronary Stent Initial 9:56:50 Procedure and supply charges have been captured, reviewed, submitted and are correct. 9:56:52 Procedure Complication : No complications 9:57:22 Vital chart was stopped 9:57:22 See physician's report for complete and final results. 9:57:24 Report given to Pre/Post Procedure Room. 9:57:28 Patient transfered to Pre/Post Procedure Room with Stretcher. 9:57:30 Procedure ended. 9:57:30 Full Disclosure recording stopped 9:57:35 End room use (Document Last) Intervention Summary Intervention Notes Time ActionType Lesion and Equipment Used Action# Pressure Duration Attributes 9:47:42 Inflate Mid LAD EUPHORA 2.0 x 1 21 00:10 balloon 15 Balloon ([id number]) 9:50:13 Place stent Mid LAD ABDON RX 2.0 x 2 19 00:10 8 stent ([id number]) 9:50:49 Reinflate Mid LAD ABDON RX 2.0 x 3 21 00:10 stent 8 stent balloon ([id number]) Device Usage Item Name Manufacture Quantity Catalog Number Hospital Part Current Minimal Lot# / Charge Number Stock Stock Serial# Code Tegaderm 4 x 4 3M 1 [id number] 193368 [id number] [id number] 5 (1626W) ACIST Manifold Acist 1 44698 828168 466358 847935 5 (39952) Medical Systems Inc ACIST Hand Acist 1 99963 375640 629886 091994 5 Control Medical (79453) Systems Inc ACIST Syringe Acist 1 99576 763400 494729 317597 20 (75636) Medical Systems Inc Bag Decanter Microtek 1 2001S 385561 55121 315789 5 (2001S) Medical Inc. Medline Cath Medline 1 [id number] 246490 31917 784733 5 Pack ([id number]) DIAGNOSTIC St Zane 1 446743 159223 976785 242958 30 WIRE .035 260cm J wire (486674) DIAGNOSTIC Cardinal 1 EP2526 937981 24686 860694 30 Multipack 5Fr Health catheter set (RC1932) SHEATH 5FR Terumo 1 ZJX475 729598 376761 231608 5 [place] (GKC031) MULTIPACK Cardinal 1 399865 5 Pigtail 5 Fr Health catheter MULTIPACK JL Cardinal 1 932282 5 4.0 5Fr Health catheter MULTIPACK 3DRC Cardinal 1 141189 5 5Fr catheter Health INFLATOR Merit Merit 1 NZ0097 954033 219527 658425 15 Har[employer] Trends Medical (IP4640) CHOICE PT [place] 1 [id number] 964847 345626 598856 5 Extra Support Scientific 182cm wire ([id number]) SHEATH 6FR Terumo 1 NNJ953 084147 987301 149663 40 [place] (GSZ576) GUIDE 6FR XB Cardinal 1 [id number] 440725 729106 063438 2 4.0 catheter Health (68717366) [place] 1 45863V 602792 744230398 806849 5 Verrata Plus pressure wire (57692T) GUIDE 6FR Cardinal 1 06295942 543105 450157 148836 10 XBLAD 3.5 Health catheter ([id number]) EUPHORA 2.0 x Medtronic 1 [id number] 500489 323061 914344 5 [id number] 15 Balloon ([id number]) ABDON RX 2.0 x Medtronic 1 [id number] 698349 4710302 176765 5 [id number] 8 stent ([id number]) EXOSEAL 6Fr Cardinal 1 EX600 105524 158889 749216 10 (EX600) Health Signature Audit Creole Stage Time Signature Unsigned Intra-Procedure 11/08/2018 Kyrie Gamboa 9:57:46 AM RT(R) Signatures Monitor : Kyrie Gamboa RT Signature : Date : Time : [facility] [address] [place] [address]
[2018-11-08 07:56] VITALS: BP 166/68; Ht 180.3 cm; Wt 79.5 kg
[2018-11-08 08:17] LABS: BASOPHILS 0.5 % (0-2); EOSINOPHILS 2.9 % (0-7); HEMATOCRIT 41.8 % (42.0-54.0); HEMOGLOBIN 15.1 g/dL (13.5-17.5); IMMATURE GRANULOCYTES 0.1 % (0-5); LYMPHOCYTES 24.3 % (15-50); MCHC 36.1 g/dL (31.0-37.0); MCV 88.6 fL (80.0-100.0); MEAN PLATELET VOLUME 9.1 fL (7.4-10.4); MONOCYTES 11.1 % (2-11); NEUTROPHILS 61.1 % (40-80); PLATELET COUNT 275 10x3/uL (130-400); RBC 4.72 10x6/uL (4.20-6.10); RDW 12.6 % (11.5-14.5); WBC 7.4 10x3/uL (4.8-10.8)
[2018-11-08 08:25] LABS: ANION GAP 14.7 mmol/L (8-16); CALCIUM 9.6 mg/dL (8.5-10.1); CARBON DIOXIDE 25.8 mmol/L (21.0-32.0); CREATININE - SERUM 1.3 mg/dL (0.6-1.3); POTASSIUM - SERUM 4.5 mmol/L (3.5-5.1)
== END 2018-11-08 14:10 | disposition home or self-care (01) ==
LOC: D.CATH 07:24
PROVIDERS: ATTEND Internal Medicine Interventional Cardiology
DX: I25.110 Atherosclerotic heart disease of native coronary artery with unstable angina pectoris (principal)
CPT/HCPCS: C9600; 93458

== ENCOUNTER 2019-02-09 08:16 | Outpatient (CLI) | payer MEDICARE ==
[~2019-02-09] VITALS: Ht 180.3 cm; Wt 81.8 kg
--- NOTE | ~2019-02-09 | HEMODYNAMI ---
PATIENT:KAREN AYALA MEDICAL RECORD: [id number] : 38 LOCATION:[facility] ADMISSION DATE: 02/09/19 Generatedon:02/09/201911:12 Patient name: KAREN AYALA Patient #: [id number] SSN: [id number] : 1940 Date of study: 02/09/2019 Page: Of Hemodynamic Procedure Report Patient Data Patient Demographics Procedure consent was obtained First Name: KAREN Gender: Male Last Name: LUCY : 1940 [facility] Initial: E Age: 78 year(s) Patient #: [id number] Race: SSN: [id number] Additional ID: [id number] Contact details Address: [place] [address] State: [place] City: [place] Zip code: [address] Past Medical History Allergies: No known allergies Admission Admission Data Admission Date: 02/09/2019 Admission Time: 8:16 Height (in.): 71 BSA: 2.07 (m2) Height (cm.): 180.34 BMI: 26.78 (kg/m2) Weight (lbs.): 192 Weight (kg.): 87.09 Lab Results Lab Result Date: 02/09/2019 Lab Result Time: 0:00 Biochemistry Name Units Result Min Max BUN mg/dl 22 --(----)-* 7 18 Creatinine mg/dl 1.3 --(---*)-- 0.6 1.3 eGFR ml/min 56 *-(----)-- 90 120 NONAFRICAN CBC Name Units Result Min Max Hematocrit % 41.6 -*(----)-- 42 54 Hemoglobin g/dl 15.2 --(-*--)-- 13.5 17.5 Procedure Procedure Types Cath Procedure Diagnostic Procedure C [facility] w/Coronaries FFR/IVUS FFR Initial Sedation Charges Moderate Sedation up to 15 minutes PCI Procedure Coronary Atherectomy Atherectomy w/Stent Coronary Initial Procedure Description Procedure Date Procedure Date: 02/09/2019 Procedure Start Time: 10:43 Procedure End Time: 11:08 Procedure Staff Name Function Rodrigo Carreon MD Performing Physician Rupesh Denny RN Nurse Kyrie Gamboa RT Scrub Naomie Quintero RT Scrub Tiffany Velarde RT Monitor Indication CAD Procedure Data Cath Procedure Fluoroscopy Diagnostic fluoroscopy Total fluoroscopy Time: 6.8 time: 6.8 min min Diagnostic fluoroscopy Total fluoroscopy dose: dose: 1176 mGy 1176 mGy Contrast Material Contrast Material Type Amount (ml) Isovue 300 113 Entry Location Entry Primary Successful Side Size Upsize Upsize Entry Closure Succes sful Closure Location (Fr) 1 (Fr) 2 (Fr) Remarks Device Remarks Femoral Right 5 Fr 6 Fr Exoseal artery Short Estimated blood loss: 10 ml Diagnostic catheters Device Type Used For End Catheter Placement MULTIPACK Pigtail 5 Fr Procedure catheter MULTIPACK JL 4.0 5Fr Procedure catheter MULTIPACK 3DRC 5Fr Procedure catheter DIAGNOSTIC JL 3.5 5Fr Procedure catheter ([id number]) Procedure Complications No complications Procedure Medications Medication Administration Route Dosage 0.9% NaCl I.V. 100 ml/hr Oxygen etCO2 Nasal cannula 2 l/min Heparin Flush Bag added to field 2 bags (1000units/500ml NS) Lidocaine 2% added to field 20 Versed I.V. 1 mg Fentanyl I.V. 50 mcg Versed I.V. 1 mg Fentanyl I.V. 50 mcg Heparin Bolus I.V. 4000 units Hemodynamics Rest BSA: 2.07 (m2) HGB: 15.2 (g/dl) O2 Consumption: Estimated: 231.09 (ml/min) O2 Co nsumption indexed: Estimated:111.64 (ml/min/m) Heart Rate: 63 (bpm) Snapshots Pre Cath Intra NCS Post Cath Vital Signs Time Heart Resp SPO2 etCO2 NIBP (mmHg) Rhythm Pain Sedation Rate (ipm) (%) (mmHg) Status Level (bpm) 10:01:46 61 16 97 0 170/83(132) NSR 0 (11) 10(A) , No pain 10:06:10 61 13 97 24 167/83(140) NSR 0 (11) 10(A) , No pain 10:10:35 60 25 98 18.8 162/79(140) NSR 0 (11) 10(A) , No pain 10:15:01 53 18 96 0 130/65(102) NSR 0 (11) 10(A) , No pain 10:19:13 53 16 95 0 139/74(115) NSR 0 (11) 10(A) , No pain 10:23:29 54 10 93 26.3 146/66(119) NSR 0 (11) 10(A) , No pain 10:27:45 55 12 95 21 131/78(109) NSR 0 (11) 10(A) , No pain 10:31:55 54 17 96 28.5 133/73(115) NSR 0 (11) 10(A) , No pain 10:36:09 52 18 93 20.3 140/66(112) NSR 0 (11) 10(A) , No pain 10:40:27 54 11 94 24.8 131/62(104) NSR 0 (11) 10(A) , No pain 10:44:41 52 12 97 0 119/65(95) NSR 0 (11) 9(A) , No pain 10:48:47 52 12 94 16.5 132/71(107) NSR 0 (11) 9(A) , No pain 10:53:03 57 12 97 17.3 131/65(118) NSR 0 (11) 9(A) , No pain 10:57:27 61 15 92 26.3 100/40(73) NSR 0 (11) 9(A) , No pain 11:02:28 55 13 96 15.7 127/66(103) NSR 0 (11) 10(A) , No pain 11:06:40 54 14 96 24 125/66(102) NSR 0 (11) 10(A) , No pain Medications Time Medication Route Dose Verified Delivered Reason Notes Effectiveness by by 10:05:50 0.9% NaCl I.V. 100 Rupesh Rupesh Per physician ml/hr Eduin Denny RN RN 10:05:59 Oxygen etCO2 2 Rupesh Rupesh for low 02 sats Nasal l/min Eduin Denny cannula RN RN 10:06:10 Heparin Flush added 2 Rupesh Rupesh used for Bag to bags Eduin Denny procedure (1000units/500ml field RN RN NS) 10:06:20 Lidocaine 2% added 20ml Rupesh Rupesh for local to vial Eduin Denny anesthetic field RN RN 10:37:33 Versed I.V. 1 mg Rupesh Rupesh for sedation Eduin Denny RN RN 10:37:41 Fentanyl I.V. 50 Rupesh Rupesh for sedation mcg Eduin Denny RN RN 10:40:37 Versed I.V. 1 mg Rupesh Rupesh for sedation Eduin Denny RN RN 10:40:43 Fentanyl I.V. 50 Rupesh Rupesh for sedation mcg Eduin Denny RN RN 10:55:33 Heparin Bolus I.V. 4000 Rupesh Rupesh for units Eduin Denny anticoagulation RN scientific associate Log Time Note 9:20:51 Informed consent obtained and on chart 9::29 Patient Height : 71 inches 9:21:39 Patient Weight : 192 lbs 9:25:30 Diagnostic Cath Status : Elective 9:25:31 PCI Cath Status : Elective 9::30 Indication : CAD 9:27:25 Procedure Status Elective Heart Cath (OP). 9:27:26 Time tracking: Regular hours (M-F 7:00 - 5:00) 9:27:29 Plan of Care:Hemodynamics will remain stable., Cardiac rhythm will remain stable., Comfort level will be maintained., Respiratory function will remain adequate., Patient/ family verbilizes understanding of procedure., Procedure tolerated without complication., Recovers from procedure without complications.. 9:46:16 Rupesh Denny RN sent for patient. Start room use. 9:46:28 Patient allergic to No known allergies 9:46:56 Lab Result : BUN 22 mg/dl 9:46:56 Lab Result : Creatinine 1.3 mg/dl 9:46:56 Lab Result : eGFR NONAFRICAN 56 ml/min 9:46:56 Lab Result : Hemoglobin 15.2 g/dl 9:46:56 Lab Result : Hematocrit 41.6 % 9:47:52 H&P Date Dictated: 02/07/2019 Within 30 days and on chart., H&P Addendum completed by physician on day of procedure. (MUST COMPLETE FOR ALL OUTPATIENTS). 9:55:19 Patient received from Pre/Post Procedure Room to CCL 2 Alert and oriented. Tansferred to table in Supine position. 9:55:20 Warm blankets applied, and michelle hugger turned on for patient comfort. 9:55:20 Correct patient and procedure confirmed by team. 9:55:24 ECG and BP/O2 sat monitors applied to patient. 10:00:31 Vital chart was started 10:00:32 Baseline sample Acquired. 10:00:43 Rhythm: sinus rhythm 10:00:44 Full Disclosure recording started 10:00:45 Pre-procedure instructions explained to patient. 10:00:46 Pre-op teaching completed and patient verbalized understanding. 10:00:47 Family in patients room. 10:00:48 Patient NPO since Midnight. 10:00:50 Is the patient allergic to Iodine/contrast media? No. 10:00:51 Is patient on blood thinner?Yes 10:00:54 ACC The patient was administered the following blood thiners within the last 24 hours: ACCPlavix 10:00:57 Patient diabetic? No. 10:00:59 Previous problem with sedation/anesthesia? No ? 10:01:02 Snore? Yes 10:01:02 Sleep apnea? No 10:01:03 Deviated septum? No 10:01:04 Opens mouth fully? Yes 10:01:05 Sticks out tongue? Yes 10:01:08 Airway obstruction? No ? 10:01:14 Dentures? Yes IN 10:01:18 Pre procedure: right dorsailis pedis pulse 2+ Normal; easily identifiable; not easily obliterated 10:01:29 Patient pain scale 0/10 ?. 10:01:41 IV patent on arrival in right antecubital with 0.9% NaCl at O. 10:01:43 Lab results completed and on chart. 10:01:47 Right groin area was prepped with chlora-prep and draped in sterile fashion 10:01:48 Alarms reviewed by R. N. 10:01:48 Sharps counted by scrub and verified by R.N. 10:01:56 Use device set Femoral Dx 10:01:57 ACIST Syringe (34446) opened to sterile field. 10:01:57 Bag Decanter (2001S) opened to sterile field. 10:01:58 ACIST Hand Control (46281) opened to sterile field. 10:01:58 ACIST Manifold (05041) opened to sterile field. 10:01:59 Tegaderm 4 x 4 (1626W) opened to sterile field. 10:02:01 Medline Cath Pack ([id number]) opened to sterile field. 10:02:02 DIAGNOSTIC Multipack 5Fr catheter set (VC4882) opened to sterile field. 10:02:03 SHEATH 5FR Randolph (TOE942) opened to sterile field. 10:02:03 EMERALD Guide Wire (719-594) opened to sterile field. 10:05:50 0.9% NaCl 100 ml/hr I.V. was administered by Rupesh Denny RN; Per physician; 10:05:59 Oxygen 2 l/min etCO2 Nasal cannula was administered by Rupesh Denny RN; for low 02 sats; 10:06:10 Heparin Flush Bag (1000units/500ml NS) 2 bags added to field was administered by Rupesh Denny RN; used for procedure; 10:06:20 Lidocaine 2% 20ml vial added to field was administered by Rupesh Denny RN; for local anesthetic; 10:36:02 --------ALL STOP TIME OUT------ 10:36:02 Final Timeout: patient, procedure, and site verified with staff and physician. All members of the team are in agreement. 10:36:03 Right groin site verified by team. 10:36:06 Fire Safety Assessment: A--An alcohol-based skin anteseptic being used preoperatively., C--Open oxygen or nitrous oxide is being used., D--An ESU, laser, or fiber-optic light is being used. 10:36:09 Physical assessment completed. ASA score P 2 - A patient with mild systemic disease as per Rodrigo Carreon MD. 10:36:12 3a) 45-59 Moderately reduced kidney function. 10:36:15 Maximum allowable contrast dose (3.7 X eGFR X 0.75)147 ml. 10:36:18 Sedation plan: IV Moderate Sedation Medication:Versed, Fentanyl 10:37:33 Versed 1 mg I.V. was administered by Rupesh Denny RN; for sedation; 10:37:41 Fentanyl 50 mcg I.V. was administered by Rupesh Denny RN; for sedation; 10:39:05 Zero performed for pressure channel P1 10:40:37 Versed 1 mg I.V. was administered by Rupesh Denny RN; for sedation; 10:40:43 Fentanyl 50 mcg I.V. was administered by Rupesh Denny RN; for sedation; 10:43:26 Procedure started. 10:43:36 Local anesthetic to right femoral artery with Lidocaine 2% by Rodrigo Carreon MD.INITIAL ACCESS ONLY 10:44:57 A 5 Fr sheath was inserted into the Right Femoral artery 10:45:30 A MULTIPACK Pigtail 5 Fr catheter was advanced over the wire and used for Procedure. 10:45:49 LV gram done using ZAMBRANO 10:45:52 Injector settings: Ml/sec: 10, Volume: 20, 10:46:21 EF : 55 % 10:46:38 Catheter removed. 10:46:53 A MULTIPACK JL 4.0 5Fr catheter was advanced over the wire and used for Procedure. 10:47:43 LCA angiography performed. 10:47:44 Catheter removed. 10:48:46 A MULTIPACK 3DRC 5Fr catheter was advanced over the wire and used for Procedure. 10:49:00 RCA angiography performed. 10:49:03 Catheter removed. 10:49:07 A DIAGNOSTIC JL 3.5 5Fr catheter ([id number]) was advanced over the wire and used for Procedure. 10:50:14 LCA angiography performed. 10:50:15 Catheter removed. 10:51:31 SHEATH 6FR Randolph (TNO074) opened to sterile field. 10:51:36 Sheath upsized to a 6 Fr Short. 10:51:45 INFLATOR Merit BasixCompak (JY0761) opened to sterile field. 10:51:45 Midland Verrata Plus pressure wire (37382J) opened to sterile field. 10:51:53 GUIDE 6FR EBU 3.0 catheter (FD0HJV84) opened to sterile field. 10:52:25 6 Fr EBU 3 guide catheter was inserted over the wire 10:53:37 FFR/IFR wire advanced. 10:54:09 Wire advanced across lesion. 10:54:43 mLAD lesion measured at .83 with IFR 10:55:33 Heparin Bolus 4000 units I.V. was administered by Rupesh Denny RN; for anticoagulation; 10:59:05 CHOICE PT Extra Support 182cm wire ([id number]) opened to sterile field. 10:59:12 PRESSURE WIRE REMOVED 10:59:26 CHOICE ES 182 wire advanced AND across the LAD 11:01:11 LASER ELCA 0.9 Rx atherectomy catheter (438789) opened to sterile field. 11:01:13 Laser pass to mLAD with Fluence of 40 and Rate of 80. 11:01:52 Laser total pulses delivered: 3200 11:02:04 Laser total treatment time: 0 minutes 40 seconds 11:02:55 Laser catheter removed. 11:04:32 Place stent Inflation Number: 1 A ABDON RX 2.5 x 15 stent ([id number]) was prepped and advanced across the Mid LAD . The stent was deployed at 21 GRACE for 0:10 (min:sec) . 11:04:50 Inflation number: 2 The stent balloon was then re-inflated across the Mid LAD to 21 GRACE for 0:10 (min:sec) . 11:05:25 Stent catheter was removed intact over wire. 11:05:25 Wire removed. 11:05:25 Guide catheter removed. 11:05:31 EXOSEAL 6Fr (EX600) opened to sterile field. 11:05:47 Sheath removed intact; hemostasis achieved with Exoseal to the Right Femoral artery. 11:05:50 Procedure ended.(Physican Out) 11:07:10 Fluoroscopy time 06.80 minutes. 11:07:14 Flurop Dose total: 1176 11:07:14 Fluoroscopy dose: 1176 mGy 11:07:19 Dose Area Product 84878 mGy/cm. 11:07:23 Contrast amount:Isovue 300 113ml. 11:07:25 Maximum allowable dose exceeded? No. 11:07:26 Sharps counted by scrub and verified by R.N. 11:07:29 Post-op/insertion site Right Femoral artery dressed using a 4 x 4 and Tegaderm. 11:07:35 Post-procedure physical assessment completed. ASA score P 2 - A patient with mild systemic disease as per Rodrigo Carreon MD. 11:07:39 Post procedure rhythm: sinus bradycardia 11:07:41 Estimated blood loss: 10 ml 11:08:00 Post procedure instruction explained to patient.Patient verbalizes understanding. 11:08:00 Patient needs reinforcement of post procedure teaching. 11:08:23 Procedure type changed to Cath procedure, Diagnostic procedure, LHC, LHC w/Coronaries, FFR/IVUS, FFR Initial, Sedation Charges, Moderate Sedation up to 15 minutes, PCI procedure, Coronary Atherectomy, Atherectomy w/Stent Coronary Initial 11:08:46 Procedure and supply charges have been captured, reviewed, submitted and are correct. 11:08:49 Procedure Complication : No complications 11:08:50 Vital chart was stopped 11:08:51 See physician's report for complete and final results. 11:08:52 Report given to Pre/Post Procedure Room. 11:08:54 Patient transfered to Pre/Post Procedure Room with Bed. 11:08:56 Procedure ended. 11:08:56 Full Disclosure recording stopped 11:08:59 End room use (Document Last) Intervention Summary Intervention Notes Time ActionType Lesion and Equipment Used Action# Pressure Duration Attributes 11:04:32 Place stent Mid LAD ABDON RX 2.5 x 1 21 00:10 15 stent ([id number]) 11:04:50 Reinflate Mid LAD ABDON RX 2.5 x 2 21 00:10 stent 15 stent balloon ([id number]) Device Usage Item Name Manufacture Quantity Catalog Number Hospital Part Current Minimal Lot# / Charge Number Stock Stock Serial# Code ACIST Syringe Acist 1 07313 594186 111853 973786 20 (29519) Medical Systems Inc Bag Decanter Microtek 1 2002S 860958 00535 105709 5 (2002S) Medical Inc. ACIST Hand Acist 1 18253 885389 022550 487869 5 Control Medical (18764) Systems Inc ACIST Manifold Acist 1 04947 262229 837486 726307 5 (34992) Medical Systems Inc Tegaderm 4 x 4 3M 1 1626W 112749 591641 381775 5 (1626W) Medline Cath Medline 1 [id number] 532106 88817 742455 5 Pack ([id number]) DIAGNOSTIC Cardinal 1 GL5297 420002 92369 281848 30 Multipack 5Fr Health catheter set (ZL5145) SHEATH 5FR Terumo 1 QLG952 054556 725990 329784 5 Randolph (JMB896) EMERALD Guide Cardinal 1 502-455 734821 233409 105710 5 Wire (159-272) Health MULTIPACK Cardinal 1 949889 5 Pigtail 5 Fr Health catheter MULTIPACK JL Cardinal 1 560859 5 4.0 5Fr Health catheter MULTIPACK 3DRC Cardinal 1 880694 5 5Fr catheter Health DIAGNOSTIC JL Cardinal 1 202104Z 358273 710407 096788 5 3.5 5Fr Health catheter (335061M) SHEATH 6FR Terumo 1 RVJ599 017393 669633 066066 40 Randolph (KAA475) INFLATOR Merit Merit 1 RY4841 166963 120681 644782 15 BasixCompak Medical (BP9610) Midland Midland 1 86172P 984727 291183089 105815 5 Verrata Plus pressure wire (96708G) GUIDE 6FR EBU Medtronic 1 IJ8HEI69 177985 74839 614208 0 3.0 catheter (TR6MMS21) LASER ELCA 0.9 Sai 1 110-004 020065 724021 618861 5 Rx atherectomy Healthcare catheter (184378) (610486) CHOICE PT [place] 1 [id number] 616926 479079 882091 5 Extra Support Scientific 182cm wire (1497570H0) ABDON RX 2.5 x Medtronic 1 [id number] 071750 3372592 471131 5 [id number] 15 stent ([id number]) EXOSEAL 6Fr Cardinal 1 EX600 150953 850587 353576 10 (EX600) Health Signature Audit Anabel Stage Time Signature Unsigned Intra-Procedure 02/09/2019 Tiffany Velarde 11:12:42 AM RT(R) Signatures Performing Physician : Signature : Rodrigo Carreon MD Date : Time : Nurse : Rupesh Denny Signature : RN Date : Time : Monitor : Tiffany Velarde Signature : RT Date : Time : [facility] [address] [place] [address]
[2019-02-09 08:48] VITALS: BP 119/74; Ht 180.3 cm; Wt 81.8 kg
[2019-02-09 09:20] LABS: BASOPHILS 0.5 % (0-2); EOSINOPHILS 3.9 % (0-7); HEMATOCRIT 41.6 % (42.0-54.0); HEMOGLOBIN 15.2 g/dL (13.5-17.5); IMMATURE GRANULOCYTES 0.2 % (0-5); LYMPHOCYTES 20.2 % (15-50); MCHC 36.5 g/dL (31.0-37.0); MCV 87.6 fL (80.0-100.0); MEAN PLATELET VOLUME 9.4 fL (7.4-10.4); MONOCYTES 9.8 % (2-11); NEUTROPHILS 65.4 % (40-80); PLATELET COUNT 269 10x3/uL (130-400); RBC 4.75 10x6/uL (4.20-6.10); RDW 13.1 % (11.5-14.5); WBC 6.6 10x3/uL (4.8-10.8)
[2019-02-09 09:40] LABS: ANION GAP 14.9 mmol/L (8-16); CALCIUM 9.5 mg/dL (8.5-10.1); CARBON DIOXIDE 24.9 mmol/L (21.0-32.0); CHOL - HDL RATIO 6.5 ratio (2.3-4.9); CREATININE - SERUM 1.3 mg/dL (0.6-1.3); LDL-HDL RATIO 4.1 ratio (1.5-3.5); POTASSIUM - SERUM 3.8 mmol/L (3.5-5.1)
--- NOTE | 2019-02-09 11:20 | NUR ---
PT ARRIVED BY STRETCHER. PLACED ON MONITORS. ASSESSMENT COMPLETED. VSS. CALL LIGHT WITHIN REACH. FAMILY AT BEDSIDE.
--- NOTE | 2019-02-09 11:35 | NUR ---
PT RESTING COMFORTABLY. RIGHT GROIN DRESSING C/D/I. NO S/S OF HEMATOMA NOTED. VSS. FAMILY AT BEDSIDE. PT DENIES NAUSEA. TOLERATING SIPS OF WATER. CALL LIGHT WITHIN REACH.
--- NOTE | 2019-02-09 12:05 | NUR ---
RIGHT GROIN DRESSING C/D/I. NO S/S OF HEMATOMA NOTED. VSS. CALL LIGHT WITHIN REACH. FAMILY AT BEDSIDE.
--- NOTE | 2019-02-09 12:30 | NUR ---
PT VOIDED APPROX 250cc OF URINE IN URINAL WITHOUT DIFFICULTY. VSS. RIGHT GROIN DRESSING C/D/I. NO S/S OF HEMATOMA NOTED. FAMILY AT BEDSIDE.
--- NOTE | 2019-02-09 13:00 | NUR ---
VSS. RIGHT GROIN DRESSING C/D/I. NO S/S OF HEMATOMA NOTED.
--- NOTE | 2019-02-09 14:00 | NUR ---
PT RESTING COMFORTABLY. VSS. RIGHT GROIN DRESSING C/D/I. NO S/S OF HEMATOMA NOTED. FAMILY AT BEDSIDE. CALL LIGHT WITHIN REACH.
--- NOTE | 2019-02-09 14:19 | NUR ---
RIGHT GROIN DRESSING C/D/I. NO S/S OF HEMATOMA NOTED. VSS. PT'S HEAD OF BED INC TO 30 DEGREES. TOLERATED WELL.
--- NOTE | 2019-02-09 15:00 | NUR ---
RIGHT ARM PIV D/C'D WITH CATH TIP INTACT. PT TOLERATED WELL. VSS. RIGHT GROIN DRESSING C/D/I. NO S/S OF HEMATOMA NOTED. DISCUSSED DISCHARGE INSTRUCTIONS WITH PT AND PT'S FAMILY. THEY VOICED UNDERTSTANDING. PT INSTRUCTED TO GET DRESSED. HIS AT BEDSIDE TO ASSIST. CALL LIGHT WITHIN REACH.
--- NOTE | 2019-02-09 15:10 | NUR ---
PT TAKEN OUT TO VEHICLE BY WHEELCHAIR. NO S/S OF DISTRESS NOTED. ALL BELONGINGS AND PAPERWORK IN HAND.
--- NOTE | 2019-02-15 11:09 | OP ---
PATIENT NAME: KAREN AYALA MEDICAL RECORD: [id number] :38 LOCATION:D.CAT ADMISSION DATE: SURGEON: MADELINE BOOKER MD DATE OF OPERATION: 02/09/2019 PROCEDURES: 1. Laser atherectomy LAD. 2. PTCA stent LAD. 3. IFR. 4. Left heart catheterization. 5. Selective coronary angiography. 6. Left ventriculogram. INDICATION: Unstable angina and coronary artery disease. PROCEDURE IN DETAIL: After informed consent was obtained and after a detailed description of the risks, benefits as well as alternative therapies, the patient elected to proceed with angiogram and angioplasty. The right femoral area was prepped and draped in normal sterile fashion. Right femoral artery was cannulated via modified Seldinger technique with placement of 6-[place]ank[place] sheath. All catheters exchanged through this sheath. FINDINGS: The left ventriculogram was performed in standard 30-degree ZAMBRANO view, reveals good cardiac wall motion throughout all segments. Overall ejection fraction estimated at 55%. SELECTIVE CORONARY ANGIOGRAPHY: 1. Left main has no significant angiographic disease. 2. Left anterior descending has previously placed stents with greater than 70% in-stent restenosis and IFR abnormal at 0.83. 3. Left circumflex has moderate irregularities, but no flow-limiting stenosis. 4. The right coronary artery has previously placed stents, these are widely patent with no significant restenosis. No disease elsewise throughout the RCA or its branches. PTCA STENT OF THE LAD: Laser atherectomy was performed with a 0.9 catheter at 80/40. Multiple passes were made. Stenting was undertaken with a 2.5 x 15 mm Shreyas. Result was 0% residual stenosis. OVERALL IMPRESSION: Successful percutaneous transluminal coronary angioplasty stent of the left anterior descending going from greater than 70% initial stenosis to 0% residual. TRANSINT:[id number] Voice Confirmation ID: [id number] DOCUMENT ID: [id number] MADELINE BOOKER MD at 1109 CC: [id number] DICTATION DATE: 02/09/19 1112 REFRIGERATING ENGINEER HEAD: 02/09/19 1118 DEP CLI 02/09/19 [place] [address]
== END 2019-02-09 15:10 | disposition home or self-care (01) ==
LOC: D.CATH 08:16
PROVIDERS: ATTEND Internal Medicine Interventional Cardiology
DX: I25.110 Atherosclerotic heart disease of native coronary artery with unstable angina pectoris (principal)
CPT/HCPCS: 93458; 93571; C9602

== ENCOUNTER → 2019-05-04 17:01 | Outpatient (CLI) | payer MEDICARE ==
[2019-02-09 08:48] VITALS: BMI 25.1
[2019-05-04 19:56] LABS: CHOL - HDL RATIO 6.8 ratio (2.3-4.9); LDL-HDL RATIO 4.2 ratio (1.5-3.5)
== END | disposition home or self-care (01) ==
LOC: D.LABREF 17:01
PROVIDERS: ATTEND Internal Medicine Interventional Cardiology
DX: I25.10 Atherosclerotic heart disease of native coronary artery without angina pectoris (principal)

== ENCOUNTER 2019-08-31 07:31 | Outpatient (CLI) | payer MEDICARE ==
[~2019-08-31] VITALS: Ht 180.3 cm; Wt 81.8 kg
--- NOTE | ~2019-08-31 | HEMODYNAMI ---
PATIENT:KAREN AYALA MEDICAL RECORD: [id number] : 38 LOCATION:DRositaCAT ADMISSION DATE: 08/31/19 Generatedon:08/31/201910:51 Patient name: KAREN AYALA Patient #: [id number] SSN: [id number] : 1940 Date of study: 08/31/2019 Page: Of Hemodynamic Procedure Report Patient Data Patient Demographics Procedure consent was obtained First Name: KAREN Gender: Male Last Name: LUCY : 1940 [facility] Initial: E Age: 79 year(s) Patient #: [id number] Race: SSN: [id number] Additional ID: [id number] Contact details Address: [place] [address] State: [place] City: [place] Zip code: [address] Past Medical History Allergies: No known allergies Admission Admission Data Admission Date: 08/31/2019 Admission Time: 7:31 Arrival Date: 08/31/2019 Arrival Time: 9:30 Admit Source: Other Insurance Payor: Medicare [facility] #: [id number] Height (in.): 70.87 BSA: 2.01 (m2) Height (cm.): 180 BMI: 25 (kg/m2) Weight (lbs.): 178.58 Weight (kg.): 81 Lab Results Lab Result Date: 08/31/2019 Lab Result Time: 0:00 Biochemistry Name Units Result Min Max BUN mg/dl 20 --(----)*- 7 18 Creatinine mg/dl 1.3 --(---*)-- 0.6 1.3 eGFR ml/min 56 *-(----)-- 90 120 NONAFRICAN CBC Name Units Result Min Max Hemoglobin g/dl 14.8 --(-*--)-- 13.5 17.5 Procedure Procedure Types Cath Procedure Diagnostic Procedure [facility] w/Coronaries FFR/IVUS FFR Initial Sedation Charges Moderate Sedation up to 45 minutes PCI Procedure Coronary Stent Coronary Stent Initial x2 Procedure Description Procedure Date Procedure Date: 08/31/2019 Procedure Start Time: 10:29 Procedure End Time: 10:47 Procedure Staff Name Function Rodrigo Carreon MD Performing Physician Pretty Calles RT Monitor Go Yousif RT Scrub Maria Luisa Bella RN Nurse Procedure Data Cath Procedure Fluoroscopy Diagnostic fluoroscopy Total fluoroscopy Time: 3.4 time: 3.4 min min Diagnostic fluoroscopy Total fluoroscopy dose: 587 dose: 587 mGy mGy Contrast Material Contrast Material Type Amount (ml) Isovue 300 84 Entry Location Entry Primary Successful Side Size Upsize Upsize Entry Closure Succes sful Closure Location (Fr) 1 (Fr) 2 (Fr) Remarks Device Remarks Femoral Right 5 Fr 6 Fr Exoseal artery Short Estimated blood loss: 5 ml Diagnostic catheters Device Type Used For End Catheter Placement MULTIPACK Pigtail 5 Fr LV Angiography catheter MULTIPACK JL 4.0 5Fr Left Coronary catheter Angiography MULTIPACK 3DRC 5Fr Right Coronary catheter Angiography Procedure Complications No complications Procedure Medications Medication Administration Route Dosage 0.9% NaCl I.V. 100 ml/hr Oxygen etCO2 Nasal cannula 2 l/min Lidocaine 2% added to field 20 Heparin Flush Bag added to field 2 bags (1000units/500ml NS) Versed I.V. 2 mg Fentanyl I.V. 50 mcg Versed I.V. 2 mg Fentanyl I.V. 50 mcg Versed I.V. 2 mg Fentanyl I.V. 50 mcg Heparin Bolus I.V. 4000 units Hemodynamics Rest BSA: 2.01 (m2) HGB: 14.8 (g/dl) O2 Consumption: Estimated: 219.55 (ml/min) O2 Co nsumption indexed: Estimated:109.23 (ml/min/m) Heart Rate: 57 (bpm) Pressure Samples Time Site Value (mmHg) Purpose Heart Use Rate(bpm) 10:30 LV 89/46,33 Snapshot 57 Snapshots Pre Cath Intra NCS Post Cath Vital Signs Time Heart Resp SPO2 etCO2 NIBP (mmHg) Rhythm Pain Sedation Rate (ipm) (%) (mmHg) Status Level (bpm) 9:28:54 63 13 98 29.2 170/86(138) NSR 0 (11) 10(A) , No pain 9:33:18 60 15 97 30.7 160/71(139) NSR 0 (11) 10(A) , No pain 9:37:40 55 11 96 0 142/74(122) SB 0 (11) 10(A) , No pain 9:41:54 56 11 95 15 152/74(129) SB 0 (11) 10(A) , No pain 9:46:12 58 12 98 12 152/74(132) SB 0 (11) 10(A) , No pain 9:50:30 56 12 98 36 147/71(123) SB 0 (11) 10(A) , No pain 9:54:46 54 12 97 28.5 146/76(123) SB 0 (11) 10(A) , No pain 9:59:04 52 13 98 0 128/68(111) SB 0 (11) 10(A) , No pain 10:03:14 52 14 97 34 125/67(102) SB 0 (11) 10(A) , No pain 10:08:13 55 11 97 12.7 Measuring SB 0 (11) 10(A) , No pain 10:08:26 55 11 98 32.2 143/61(114) SB 0 (11) 10(A) , No pain 10:12:41 54 11 96 21 128/70(120) SB 0 (11) 10(A) , No pain 10:16:55 53 13 98 0 132/58(109) SB 0 (11) 10(A) , No pain 10:21:09 53 10 98 0 124/64(99) SB 0 (11) 9(A) , No pain 10:25:17 55 12 98 32.3 136/70(110) SB 0 (11) 9(A) , No pain 10:30:16 54 16 98 29.2 Measuring SB 0 (11) 9(A) , No pain 10:30:31 52 14 99 28.6 128/63(114) SB 0 (11) 9(A) , No pain 10:34:43 53 14 97 32 132/66(115) SB 0 (11) 9(A) , No pain 10:38:54 52 8 95 15.7 123/67(108) SB 0 (11) 9(A) , No pain 10:43:02 56 9 96 36 119/72(113) SB 0 (11) 10(A) , No pain 10:47:10 56 9 97 30.1 128/65(117) SB 0 (11) 10(A) , No pain Medications Time Medication Route Dose Verified Delivered Reason Notes Effectiveness by by 9:29:14 0.9% NaCl I.V. 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 2 mg Rodrigo Maria Luisa for sedation Velma Bella RN 10:06:19 Fentanyl I.V. 50 Rodrigo Maria Luisa for sedation mcg Velma Bella RN 10:11:49 Versed I.V. 2 mg Rodrigo Maria Luisa for sedation Velma Bella RN 10:11:56 Fentanyl I.V. 50 Rdorigo Maria Luisa for sedation mcg Velma Bella RN 10:17:03 Versed I.V. 2 mg Rodrigo Maria Luisa for sedation Velma Bella RN 10:17:10 Fentanyl I.V. 50 Rodrigo Maria Luisa for sedation mcg Velma Bella RN 10:35:09 Heparin Bolus I.V. 4000 Rodrigo Maria Luisa for verif ied units Velma Bella anticoagulation with Dr. ERUM Carreon Procedure Log Time Note 9:14:26 Informed consent obtained and on chart 9:16:59 Admit Source: Other 9:17:05 Arrival Date: 08/31/2019 9:30:00 AM 9:17:22 Insurance Payor : Medicare 9:17:26 Patient Height : 70.87 inches 9:17:29 Patient Weight : 178.58 lbs 9:17:37 Diagnostic Cath Status : Elective 9:18:30 Lab Result : Hemoglobin 14.8 g/dl 9:18:30 Lab Result : eGFR NONAFRICAN 56 ml/min 9:18:30 Lab Result : BUN 20 mg/dl 9:18:30 Lab Result : Creatinine 1.3 mg/dl 9:18:37 Go Yousif RT(R) (CV) sent for patient. Start room use. 9:18:38 Time tracking: Regular hours (M-F 7:00 - 5:00) 9:18:42 Plan of Care:Hemodynamics will remain stable., Cardiac rhythm will remain stable., Comfort level will be maintained., Respiratory function will remain adequate., Patient/ family verbilizes understanding of procedure., Procedure tolerated without complication., Recovers from procedure without complications.. 9:18:50 ACC Patient presents with Stable Angina CCS Anginal Class 2--Slight limitation of ordinary activity. 9:18:55 Procedure Status Elective Heart Cath (OP). 9:19:52 ACCPatient has been prescribed/administered the following anti-anginal medication within the last 2 weeks: Calcium Channel Blockers 9:21:38 Patient received from Pre/Post Procedure Room to CCL 2 Alert and oriented. Tansferred to table in Supine position. 9:21:40 Warm blankets applied, and michelle hugger turned on for patient comfort. 9:21:40 Correct patient and procedure confirmed by team. 9:21:41 ECG and BP/O2 sat monitors applied to patient. 9:27:45 Vital chart was started 9:27:50 Rhythm: sinus rhythm 9:27:54 Full Disclosure recording started 9:28:02 H&P Date Dictated: 08/26/2019 Within 30 days and on chart., H&P Addendum completed by physician on day of procedure. (MUST COMPLETE FOR ALL OUTPATIENTS). 9:28:03 Pre-procedure instructions explained to patient. 9:28:03 Pre-op teaching completed and patient verbalized understanding. 9:28:05 Family in waiting room. 9:28:06 Patient NPO since Midnight. 9:28:08 Is the patient allergic to Iodine/contrast media? No. 9:28:11 Patient diabetic? No. 9:28:13 Previous problem with sedation/anesthesia? No ? 9:28:15 Snore? Yes 9:28:16 Sleep apnea? Yes 9:28:18 Deviated septum? No 9:28:18 Opens mouth fully? Yes 9:28:19 Sticks out tongue? Yes 9:28:22 Airway obstruction? No ? 9:28:24 Dentures? No ? 9:28:37 Is patient on blood thinner?Yes 9:28:40 ACC The patient was administered the following blood thiners within the last 24 hours: ACCPlavix 9::44 Pre procedure: right dorsailis pedis pulse 1+ Palpable, but thready & weak; easily obliterated 9:28:46 Patient pain scale 0/10 ?. 9:28:52 IV patent on arrival in left hand with 0.9% NaCl at O. 9:28:55 Lab results completed and on chart. 9:29:14 0.9% NaCl 100 ml/hr I.V. was administered by Maria Luisa Bella RN; used for procedure; Verbal order read back and verified. 9::20 Oxygen 2 l/min etCO2 Nasal cannula was administered by Maria Luisa Bella RN; used for procedure; Verbal order read back and verified. 9:29:23 Right groin area was prepped with chlora-prep and draped in sterile fashion 9::24 Alarms reviewed by R. N. 9::24 Sharps counted by scrub and verified by R.N. 9::26 Lidocaine 2% 20ml vial added to field was administered by Rodrigo Carreon MD; for local anesthetic; Verbal order read back and verified. 9:29:30 Heparin Flush Bag (1000units/500ml NS) 2 bags added to field was administered by Rodrigo Carreon MD; used for procedure; Verbal order read back and verified. 9:38:40 Zero performed for pressure channel P1 9:38:44 Zero performed for pressure channel P1 10:05:20 Physician arrived 10:05:20 --------ALL STOP TIME OUT------ 10:05:21 Final Timeout: patient, procedure, and site verified with staff and physician. All members of the team are in agreement. 10:05:26 Right groin site verified by team. 10:05:30 Fire Safety Assessment: A--An alcohol-based skin anteseptic being used preoperatively., C--Open oxygen or nitrous oxide is being used., D--An ESU, laser, or fiber-optic light is being used. 10:05:33 Physical assessment completed. ASA score P 2 - A patient with mild systemic disease as per Rodrigo Carreon MD. 10:05:45 3a) 45-59 Moderately reduced kidney function. 10:06:11 Versed 2 mg I.V. was administered by Maria Luisa Bella RN; for sedation; Verbal order read back and verified. 10:06:19 Fentanyl 50 mcg I.V. was administered by Maria Luisa Bella RN; for sedation; Verbal order read back and verified. 10:07:00 Maximum allowable contrast dose (3.7 X eGFR X 0.75)155 ml. 10:07:05 Sedation plan: IV Moderate Sedation Medication:Versed, Fentanyl 10:07:11 Use device set Femoral Dx 10:07:12 ACIST Syringe (23165) opened to sterile field. 10:07:13 Bag Decanter (2002S) opened to sterile field. 10:07:13 Medline Cath Pack ([id number]) opened to sterile field. 10:07:14 ACIST Hand Control (69177) opened to sterile field. 10:07:14 ACIST Manifold (93575) opened to sterile field. 10:07:15 DIAGNOSTIC Multipack 5Fr catheter set ([id number]) opened to sterile field. 10:07:15 Tegaderm 4 x 4 (1626W) opened to sterile field. 10:07:16 SHEATH 5FR [place] (NWK125) opened to sterile field. 10:07:17 EMERALD Guide Wire (590-410) opened to sterile field. 10:07:22 Zero performed for pressure channel P1 10:11:49 Versed 2 mg I.V. was administered by Maria Luisa Bella RN; for sedation; Verbal order read back and verified. 10:11:56 Fentanyl 50 mcg I.V. was administered by Maria Luisa Bella RN; for sedation; Verbal order read back and verified. 10:17:03 Versed 2 mg I.V. was administered by Maria Luisa Bella RN; for sedation; Verbal order read back and verified. 10:17:10 Fentanyl 50 mcg I.V. was administered by Maria Luisa Bella RN; for sedation; Verbal order read back and verified. 10:29:51 Procedure started. 10:29:54 Local anesthetic to right femoral artery with Lidocaine 2% by Rodrigo Carreon MD.INITIAL ACCESS ONLY 10:30:04 A 5 Fr sheath was inserted into the Right Femoral artery 10:30:27 A MULTIPACK Pigtail 5 Fr catheter was advanced over the wire and used for LV Angiography. 10:30:40 LV hemodynamics recorded. 10:30:41 LV gram done using ZAMBRANO 10:30:44 Injector settings: Ml/sec: 5, Volume: 15, 10:30:56 EF : 55 % 10:31:01 Catheter removed. 10:31:10 A MULTIPACK JL 4.0 5Fr catheter was advanced over the wire and used for Left Coronary Angiography. 10:32:02 LCA angiography performed. 10:32:05 Injector settings: Ml/sec: 3, Volume: 6, 10:32:39 Catheter removed. 10:32:43 A MULTIPACK 3DRC 5Fr catheter was advanced over the wire and used for Right Coronary Angiography. 10:33:18 Lakeside TransactionTreerata Plus pressure wire (07738Q) opened to sterile field. 10:33:19 INFLATOR Merit BasixCompak (KH8410) opened to sterile field. 10:33:20 SHEATH 6FR [place] (DDI529) opened to sterile field. 10:33:44 GUIDE 6FR XBLAD 4.0 catheter ([id number]) opened to sterile field. 10:33:59 RCA angiography performed. 10:34:02 Injector settings: Ml/sec: 3, Volume: 6, 10:34:03 Catheter removed. 10:34:11 Sheath upsized to a 6 Fr Short. 10:34:21 6 Fr xblad 4 guide catheter was inserted over the wire 10:35:09 Heparin Bolus 4000 units I.V. was administered by Maria Luisa Bella RN; for anticoagulation; verified with Dr. Carreon Verbal order read back and verified. 10:35:25 CHOICE PT Extra Support 182cm wire ([id number]) opened to sterile field. 10:35:45 choice pt wire advanced. 10:36:03 ACC Pre-intervention LEO Flow is 3. 10:36:03 Pre PCI Site: [place]ek mCirc has 90% stenosis. 10:36:03 Wire advanced across lesion. 10:36:59 Inflate balloon Inflation number: 1 A EUPHORA 2.5 x 12 Balloon ([id number]) was prepped and advanced across the Mid CX 90, then inflated to 11 GRACE for 0:10 (min:sec) 0. 10:38:31 Place stent Inflation Number: 2 A ABDON RX 2.5 x 08 stent ([id number]) was prepped and advanced across the Mid CX 90. The stent was deployed at 13 GRACE for 0:10 (min:sec) 0. 10:39:22 Balloon removed over the wire. 10:39:44 Post PCI Site: [place] mCirc has 0% stenosis. 10:40:21 Wire removed. 10:40:25 FFR/IFR wire advanced. 10:40:30 Baseline FFR 1. 10:40:31 Wire advanced across lesion. 10:41:30 mLAD lesion measured at 70 with IFR 10:42:40 Pre PCI Site: [place] mLAD has 70% stenosis. 10:42:45 Place stent Inflation Number: 1 A ABDON RX 2.25 x 15 stent ([id number]) was prepped and advanced across the Mid LAD 70. The stent was deployed at 13 GRACE for 0:10 (min:sec) 0. 10:42:51 Inflation number: 2 The stent balloon was then re-inflated across the Mid LAD 0 to 21 GRACE for 0:10 (min:sec) . 10:43:37 ACC Post-intervention LEO Flow is 3. 10:43:43 Post PCI Site: [place]ek mLAD has 0% stenosis. 10:43:59 Stent catheter was removed intact over wire. 10:43:59 Wire removed. 10:44:00 Guide catheter removed. 10:44:07 EXOSEAL 6Fr (EX600) opened to sterile field. 10:44:16 Sheath removed intact; hemostasis achieved with Exoseal to the Right Femoral artery. 10:44:17 Procedure ended.(Physican Out) 10:45:10 Fluoroscopy time 03.40 minutes. 10:45:14 Fluoroscopy dose: 587 mGy 10:45:14 Flurop Dose total: 587 10:45:20 Dose Area Product 10071 mGy/cm. 10:45:24 Contrast amount:Isovue 300 84ml. 10:45:26 Maximum allowable dose exceeded? No. 10:45:27 Sharps counted by scrub and verified by R.N. 10:45:35 Insertion/operative site no bleeding no hematoma. 10:45:38 Post-op/insertion site Right Femoral artery dressed using a 4 x 4 and Tegaderm. 10:45:39 Post Procedure Pulses reassessed and unchanged 10:45:41 Post procedure rhythm: unchanged. 10:45:44 Estimated blood loss: 5 ml 10:45:45 Post procedure instruction explained to patient.Patient verbalizes understanding. 10:45:45 Patient needs reinforcement of post procedure teaching. 10:46:12 Procedure type changed to Cath procedure, Diagnostic procedure, LHC, [facility] w/Coronaries, FFR/IVUS, FFR Initial, Sedation Charges, Moderate Sedation up to 45 minutes, PCI procedure, Coronary Stent, Coronary Stent Initial x2 10:46:13 Procedure and supply charges have been captured, reviewed, submitted and are correct. 10:46:38 Procedure Complication : No complications 10:46:41 Vital chart was stopped 10:47:08 [facility] Findings: MVD- PCI performed (see procedure note) 10:47:09 Operative report dictated upon procedure completion. 10:47:10 See physician's report for complete and final results. 10:47:17 Report given to Pre/Post Procedure Room. 10:47:19 Patient transfered to Pre/Post Procedure Room with Stretcher. 10:47:21 Procedure ended. 10:47:21 Full Disclosure recording stopped 10:47:29 ACC-PCI Only Patient was given prescriptions, or instructed by Rodrigo Carreon MD to start/continue the following medications upon discharge: Plavix 10:47:30 End room use (Document Last) 10:49:18 End room use (Document Last) 10:49:36 ACT drawn and resulted at OOR seconds. (normal therapeutic range 180-240 seconds). Intervention Summary Intervention Notes Time ActionType Lesion and Equipment Used Action# Pressure Duration Attributes 10:36:59 Inflate Mid CX EUPHORA 2.5 x 1 11 00:10 balloon 12 Balloon ([id number]) 10:38:31 Place stent Mid CX ABDON RX 2.5 x 2 13 00:10 08 stent ([id number]) 10:42:45 Place stent Mid LAD ABDON RX 2.25 x 1 13 00:10 15 stent ([id number]) 10:42:51 Reinflate Mid LAD ABDON RX 2.25 x 2 21 00:10 stent 15 stent balloon ([id number]) Device Usage Item Name Manufacture Quantity Catalog Number Hospital Part Current Minimal Lot# / Charge Number Stock Stock Serial# Code ACIST Syringe Acist 1 63873 113112 815354 [id number] 20 (72421) Medical Systems Inc Bag Decanter Microtek 1 2001S 398781 93896 322694 5 (2001S) Medical Inc. Medline Cath Medline 1 [id number] 218919 14633 283732 5 Pack ([id number]) ACIST Hand Acist 1 25474 888913 749655 670081 5 Control Medical (95235) Systems Inc ACIST Manifold Acist 1 00840 608854 257789 057834 5 (41222) Medical Systems Inc DIAGNOSTIC Cardinal 1 YN0269 803483 32073 380282 30 Multipack 5Fr Health catheter set (VO8789) Tegaderm 4 x 4 3M 1 1626W 498188 106285 403675 5 (1626W) SHEATH 5FR Terumo 1 YPC493 605191 472337 008586 5 [place] (OJO346) EMERALD Guide Cardinal 1 502-455 007285 714810 785437 5 Wire (502-455) Health MULTIPACK Cardinal 1 379920 5 Pigtail 5 Fr Health catheter MULTIPACK JL Cardinal 1 911834 5 4.0 5Fr Health catheter MULTIPACK 3DRC Cardinal 1 033561 5 5Fr catheter [facility] Lakeside Lakeside 1 [id number] 556635 [id number] 466244 5 Verrata Plus pressure wire (91586H) INFLATOR Merit Merit 1 AE4535 379406 998205 894775 15 BasixCompak Medical (ZK6726) SHEATH 6FR Terumo 1 FYL622 442355 155669 510242 40 [place] (TAY836) GUIDE 6FR Cardinal 1 [id number] 435417 966956 518464 3 XBLAD 4.0 Health catheter ([id number]) CHOICE PT [place] 1 [id number] 433060 993725 253047 5 Extra Support Scientific 182cm wire ([id number]) EUPHORA 2.5 x Medtronic 1 [id number] 706284 374605 456768 5 [id number] 12 Balloon ([id number]) ABDON RX 2.5 x Medtronic 1 [id number] 935771 1893551 086553 5 [id number] 08 stent ([id number]) ABDON RX 2.25 x Medtronic 1 [id number] 745786 2441486 309474 5 [id number] 15 stent ([id number]) EXOSEAL 6Fr Cardinal 1 EX600 633409 053451 284650 10 (EX600) Health Signature Audit [place] Stage Time Signature Unsigned Intra-Procedure 08/31/2019 Pretty Calles 10:49:18 AM RT(R) Intra-Procedure 08/31/2019 Maria Luisa Bella 10:51:02 AM RN Intra-Procedure 08/31/2019 Rodrigo Carreon 10:51:46 AM Signatures Performing Physician : Signature : Rodrigo Carreon MD Date : Time : Monitor : Pretty Calles RT Signature : Date : Time : Nurse : Maria Luisa Bella RN Signature : Date : Time : [place] [address] [place] [address]
--- NOTE | ~2019-08-31 | OP ---
PATIENT NAME: KAREN AYALA MEDICAL RECORD: [id number] :38 LOCATION:D.CAT ADMISSION DATE: SURGEON: MADELINE BOOKER MD DATE OF OPERATION: 08/31/2019 DATE OF SERVICE: 08/31/2019 PROCEDURES: 1. PTCA stent LAD. 2. PTCA stent left circumflex. 3. IFR LAD. 4. Left heart catheterization. 5. Selective coronary angiography. 6. Left ventriculogram. INDICATION: Angina and coronary artery disease. PROCEDURE IN DETAIL: After informed consent was obtained and after a detailed description of the risks, benefits as well as alternative therapies, the patient elected to proceed with angiogram and angioplasty. The right femoral area was prepped and draped in normal sterile fashion. Right femoral artery was cannulated via modified Seldinger technique with placement of 6-Turkmen sheath. All catheters exchanged through this sheath. FINDINGS: Left ventriculogram was performed in standard 30-degree ZAMBRANO view, reveals good cardiac wall motion throughout all segments. Overall ejection fraction estimated at 60%. SELECTIVE CORONARY ANGIOGRAPHY: 1. Left main is with no significant angiographic disease. 2. Left anterior descending has previously placed stents, there are 70% hazy in-stent restenosis at the end of this. An IFR is abnormal. 3. Left circumflex has previously placed stents. The circumflex itself has a 90% stenosis at the juncture of the first obtuse marginal and the AV groove circumflex. 4. Right coronary has mild irregularities, but no flow-limiting stenosis. PTCA STENT OF THE CIRCUMFLEX: The stent used was a 2.0 x 8 mm Shreyas. Result was 0% residual stenosis. PTCA STENT OF THE LAD: The stent used was a 2.25 x 15 mm Hamer. Result was 0% residual stenosis. OVERALL IMPRESSION: Successful percutaneous transluminal coronary angioplasty stent of the left anterior descending and circumflex, both going from 70% to 80% initial stenosis to 0% residual. TRANSINT:[id number] Voice Confirmation ID: [id number] DOCUMENT ID: [id number] OPERATIVE REPORT [id number] LUCYKAREN Mejía MADELINE BOOKER MD CC: [id number] DICTATION DATE: 08/31/19 1048 HOST COORDINATOR: 08/31/[address] [facility] [address] [place] [address]
[2019-08-31] MEDS ORDERED: ISOSORBIDE DINI30 MG PO (08:03)
[2019-08-31] MEDS ORDERED: PRALUENT P75 MG/1 ML SC (08:05)
[2019-08-31 08:17] VITALS: BP 169/77; Ht 180.3 cm; Wt 81.8 kg
[2019-08-31 08:26] LABS: BASOPHILS 0.5 % (0-2); EOSINOPHILS 4.1 % (0-7); HEMATOCRIT 42.1 % (42.0-54.0); HEMOGLOBIN 14.8 g/dL (13.5-17.5); IMMATURE GRANULOCYTES 0.2 % (0-5); LYMPHOCYTES 22.9 % (15-50); MCH 31.7 pg (26.0-34.0); MCHC 35.2 g/dL (31.0-37.0); MCV 90.1 fL (80.0-100.0); MONOCYTES 15.4 % (2-11); NEUTROPHILS 56.9 % (40-80); PLATELET COUNT 232 10x3/uL (130-400); RBC 4.67 10x6/uL (4.20-6.10); RDW 13.2 % (11.5-14.5); WBC 6.1 10x3/uL (4.8-10.8)
[2019-08-31 08:58] LABS: ANION GAP 14.7 mmol/L (8-16); CALCIUM 8.9 mg/dL (8.5-10.1); CARBON DIOXIDE 24.3 mmol/L (21.0-32.0); CREATININE - SERUM 1.3 mg/dL (0.6-1.3); LDL-HDL RATIO 1.1 ratio (1.5-3.5)
--- NOTE | 2019-08-31 10:56 | NUR ---
PT ARRIVED BY STRETCHER. PLACED ON MONITORS. ASSESSMENT COMPLETED. VSS. CALL LIGHT WITHIN REACH. FAMILY AT BEDSIDE.
--- NOTE | 2019-08-31 11:10 | NUR ---
RIGHT GROIN DRESSING C/D/I. NO S/S OF HEMATOMA NOTED. CALL LIGHT WITHIN REACH. VSS.
--- NOTE | 2019-08-31 11:40 | NUR ---
RIGHT GROIN DRESSING C/D/I. NO S/S OF HEMATOMA NOTED. CALL LIGHT WITHIN REACH. VSS. FAMILY AT BEDSIDE. TOLERATING SIPS OF WATER. DENIES NAUSEA/PAIN AT THIS TIME.
--- NOTE | 2019-08-31 12:10 | NUR ---
RIGHT GROIN DRESSING C/D/I. NO S/S OF HEMATOMA NOTED. CALL LIGHT WITHIN REACH. FAMILY AT BEDSIDE. NO NEEDS AT THIS TIME.
--- NOTE | 2019-08-31 12:45 | NUR ---
RIGHT GROIN DRESSING C/D/I. NO S/S OF HEMATOMA NOTED. VSS. TOLERATING WELL.
--- NOTE | 2019-08-31 13:45 | NUR ---
RIGHT GROIN DRESSING C/D/I. NO S/S OF HEMATOMA NOTED. PT'S HEAD OF BED INC TO 30 DEGREES. TOLERATED WELL. SET UP WITH SANDWICH TRAY AND DRINK. VSS. NO NEEDS AT THIS TIME.
--- NOTE | 2019-08-31 14:30 | NUR ---
RIGHT GROIN DRESSING C/D/I. NO S/S OF HEMATOMA NOTED. VSS. FAMILY AT BEDSIDE.
--- NOTE | 2019-08-31 14:55 | NUR ---
RIGHT GROIN DRESSING C/D/I. NO S/S OF HEMATOMA NOTED. PIV D/C'D WITH CATH TIP INTACT. TOLERATED WELL. PT INSTRUCTED TO GET UP AND DRESSED. FAMILY AT BEDSIDE TO ASSIST.
--- NOTE | 2019-08-31 15:15 | NUR ---
DISCUSSED DISCHARGE INSTRUCTIONS WITH PT AND PT'S FAMILY. THEY VOICED UNDERSTANDING.
--- NOTE | 2019-08-31 15:30 | NUR ---
PT TO RESTROOM. VOIDED WITHOUT DIFFICULTY. TAKEN OUT TO VEHICLE BY WHEELCHAIR. NO S/S OF DISTRESS NOTED. ALL BELONGINGS AND PAPERWORK IN HAND.
== END 2019-08-31 15:30 | disposition home or self-care (01) ==
LOC: D.CATH 07:31
PROVIDERS: ATTEND Internal Medicine Interventional Cardiology
DX: I25.119 Atherosclerotic heart disease of native coronary artery with unspecified angina pectoris (principal); I48.91 Unspecified atrial fibrillation; R06.00 Dyspnea, unspecified; E78.5 Hyperlipidemia, unspecified; I10 Essential (primary) hypertension; R07.9 Chest pain, unspecified
CPT/HCPCS: 93458; 93571; C9600 ×2